=== PATIENT | female | born 1990 | race Caucasian/White ===

== ENCOUNTER → 2017-11-12 11:32 | Outpatient (CLI) | payer OTHER, SELFPAY ==
[2017-11-12 12:51] LABS: hCG Titer Quant., Serum 52 mIU/mL (<9 non-preg)
== END ==
PROVIDERS: Visit Provider Obstetrics & Gynecology
DX: O46.90 Antepartum hemorrhage, unspecified, unspecified trimester (principal); Z3A.00 Weeks of gestation of pregnancy not specified
CPT/HCPCS: 84702

== ENCOUNTER → 2017-11-14 07:33 | Outpatient (CLI) | payer OTHER, SELFPAY ==
[2017-11-14 08:31] LABS: hCG Titer Quant., Serum 139 mIU/mL (<9 non-preg)
== END ==
PROVIDERS: Visit Provider Obstetrics & Gynecology
DX: O46.90 Antepartum hemorrhage, unspecified, unspecified trimester (principal); Z3A.00 Weeks of gestation of pregnancy not specified
CPT/HCPCS: 36415; 84702

== ENCOUNTER → 2017-12-09 18:58 | Outpatient (CLI) | payer OTHER, SELFPAY ==
[2017-12-09 21:35] LABS: Chlamydia Trachomatis by PCR Negative (Negative); Neisserai gonorrhoeae by PCR Negative (Negative); Probe Check PASS; Sample Adequacy Control PASS; Specimen Processing Control PASS
[2017-12-13 09:33] LABS: HPV Reflexed? NOT INDICATED
== END ==
PROVIDERS: Visit Provider Obstetrics & Gynecology
DX: Z12.4 Encounter for screening for malignant neoplasm of cervix (principal); Z34.01 Encounter for supervision of normal first pregnancy, first trimester
CPT/HCPCS: 87086; 87491; 87591; 88175; G0145

== ENCOUNTER → 2017-12-10 07:28 | Outpatient (CLI) | payer OTHER, SELFPAY ==
[2017-12-10 07:56] LABS: Absolute Lymphocyte Count 1.88 X10^3/ul (0.83-4.51); Absolute Neutrophil Count 3.8 X10^3/uL (2.0-7.7); Basophil# 0.01 X10^3/uL; Basophil% 0.2 % (0-1); Eosinophil# 0.03 X10^3/uL; Eosinophils% 0.5 % (0-5); Hemoglobin 12.4 g/dl (12.0-15.0); Lymphocyte # 1.88 X10^3/ul (4.0); Lymphocyte % 30.5 % (19-41); Mean Corp Hgb Conc 32.6 g/gl (32-36); Mean Corpuscular Hgb 31.1 pg (27.0-32.0); Mean Corpuscular Volume 95.2 fL (81-99); Mean Platelet Vol. 9.7 fl (6.2-12.0); Monocyte# 0.46 X10^3/uL; Monocyte% 7.5 % (0-10); Neutrophil # 3.77 X10^3/uL (2.7-7.7); Neutrophil % 61.1 % (47-70); Platelet Count 183 K/mm3 (150-450); RBC Distribution Width CV 12.8 % (11.6-14.6); RBC Distribution Width SD 44.2 fl (35.1-43.9); Red Blood Count 3.99 M/mm3 (4.2-5.4); White Blood Count 6.2 K/mm3 (4.4-11.0)
[2017-12-10 07:58] LABS: POSITIVE COUNT NO; POSITIVE DIFFERENTIAL NO; POSITIVE MORPHOLOGY NO
[2017-12-10 09:48] LABS: HIV - WCH Non-Reactive (Nonreactive); Rubella IgG 41.6 IU/mL
[2017-12-11 12:49] LABS: HEPATITIS B SURFACE AG Negative (Negative)
[2017-12-12 03:47] LABS: Rapid Plasmin Reagin (RPR) NONREACTIVE (NONREACTIVE)
== END ==
PROVIDERS: Visit Provider Obstetrics & Gynecology
DX: Z34.01 Encounter for supervision of normal first pregnancy, first trimester (principal)
CPT/HCPCS: 36415; 85025; 86592; 86703; 86762; 86850; 86900; 87340

== ENCOUNTER → 2018-02-26 07:40 | Outpatient (CLI) | payer OTHER, SELFPAY | PROVIDERS: Visit Provider Obstetrics & Gynecology | DX: Z34.90 Encounter for supervision of normal pregnancy, unspecified, unspecified trimester (principal) | CPT/HCPCS: 76805 ==

== ENCOUNTER → 2018-04-28 16:30 | Outpatient (CLI) | payer OTHER, SELFPAY ==
[2018-04-28 17:16] LABS: Absolute Lymphocyte Count 1.56 X10^3/ul (0.83-4.51); Absolute Neutrophil Count 6.4 X10^3/uL (2.0-7.7); Basophil# 0.01 X10^3/uL; Basophil% 0.1 % (0-1); Eosinophil# 0.04 X10^3/uL; Eosinophils% 0.5 % (0-5); Hematocrit 37.8 % (37-47); Hemoglobin 12.2 g/dl (12.0-15.0); Lymphocyte # 1.56 X10^3/ul (4.0); Lymphocyte % 18.1 % (19-41); Mean Corp Hgb Conc 32.3 g/gl (32-36); Mean Corpuscular Hgb 31.7 pg (27.0-32.0); Mean Corpuscular Volume 98.2 fL (81-99); Mean Platelet Vol. 9.5 fl (6.2-12.0); Monocyte# 0.57 X10^3/uL; Monocyte% 6.6 % (0-10); Neutrophil # 6.41 X10^3/uL (2.7-7.7); Neutrophil % 74.4 % (47-70); Platelet Count 175 K/mm3 (150-450); RBC Distribution Width SD 46.3 fl (35.1-43.9); Red Blood Count 3.85 M/mm3 (4.2-5.4); White Blood Count 8.6 K/mm3 (4.4-11.0)
[2018-04-28 17:20] LABS: POSITIVE COUNT NO; POSITIVE DIFFERENTIAL NO; POSITIVE MORPHOLOGY NO
[2018-04-28 17:34] LABS: Glucose Challenge Gest 1H 50g 82 mg/dL (70-140)
== END ==
PROVIDERS: Family Provider Internal Medicine; PCP Internal Medicine; Referring Provider Obstetrics & Gynecology; Visit Provider Obstetrics & Gynecology
DX: Z34.90 Encounter for supervision of normal pregnancy, unspecified, unspecified trimester (principal)
CPT/HCPCS: 36415; 82950; 85025

== ENCOUNTER 2018-05-20 09:00 | Outpatient (CLI) | payer OTHER, SELFPAY ==
[2018-05-13 08:08] VITALS: BMI 27.3
[2018-05-20 09:18] VITALS: BMI 27.2
[2018-05-20 09:31] LABS: Mucous, Urine 0 SEEN /hpf (<or=2+); Red Blood Cells-Urine 0 SEEN /hpf (0-5)
[2018-05-20 09:41] LABS: Color, Urine Yellow (Yellow); Glucose, Dipstick Normal (Normal); Ketone-Dipstick Negative (Negative); Leukocyte Esterase-Dipstick 500 /ul (Negative); Nitrite-Dipstick Negative (Negative); Occult Blood-Urine Negative /ul (Negative); Protein-Dipstick Negative (Negative); Urine Bilirubin Dipstick Negative (Negative); Urine Clarity Sl. Cloudy (Clear); Urine Urobilinogen Normal (Normal)
[2018-05-20 09:42] LABS: Bacteria 1+ /hpf (None Seen); Squamous Epithelial Cells - UA 0-5 SEEN /hpf (5-10); White Blood Cells 25-50 SEEN /hpf (0-5)
[2018-05-20 10:21] LABS: Fetal Fibronectin Negative
--- NOTE | 2018-05-22 02:24 | OB.TRI.NOTE ---
- Problem List (1) Threatened labor Status: Acute (2) Supervision of normal Status: Acute Qualifiers: Comment: PRR TONI 07/21/18 gender surprise Christian History of Present Illness Date of Service: 05/20/18 Was patient seen by the physician?: No Reason For Visit: PRE TERM LABOR History of Present Illness: co contractions and lower crmaping Allergies No Known Allergies Allergy (Verified 05/20/18 09:19) Laboratory Studies: Laboratory Tests 05/20/18 05/20/18 Range/Units 09:45 09:25 Urine Color Yellow (Yellow) Urine Clarity Sl. Cloudy (Clear) Urine pH 6.0 (5.0 - 8.0) Ur Specific [place] 1.020 (1.002-1.030) Urine Protein Negative (Negative) mg/dl Urine Glucose (UA) Normal (Normal) mg/dl Urine Ketones Negative (Negative) mg/dl Urine Occult Blood Negative (Negative) /ul Urine Nitrite Negative (Negative) Urine Bilirubin Negative (Negative) mg/dL Urine Urobilinogen Normal (Normal) mg/dl Ur Leukocyte Esterase 500 H (Negative) /ul Urine RBC 0 SEEN (0-5) /hpf Urine WBC 25-50 SEEN (0-5) /hpf Ur Squamous Epith Cells 0-5 SEEN (5-10) /hpf Urine Bacteria 1+ (None Seen) /hpf Urine Mucus 0 SEEN (<or=2+) /hpf Fibronectin Negative NST - FHR Rate Baby A Baseline: 140 Variability:: Moderate Accelerations:: 15 x 15 Decelerations:: None NST Reactive:: Yes, Appropriate for gestational age FHR Category:: Category I Uterine Activity:: no regular Impression/Plan threatened PTL cervix closed neg ffn urine culture sent dc home
--- OUTSIDE RECORDS SUMMARY | 2018-07-15 14:59 | XMS RPT_ITS ---
:1990 Author Organization OHIP Support Name Relationship Address Phone AKRCHILD Unavailable [address] + [place] [address] ELOINA THORNTON Unavailable [address] + [place] [address] AKRCHILD Unavailable [address] + [place] [address] ELOINA THORNTON Unavailable [address] + [place] [address] AKRCHILD Unavailable [address] + [place] [address] ELOINA THORNTON Unavailable [address] + [place] [address] AKRCHILD Unavailable [address] + [place] [address] ELOINA THORNTON Unavailable [address] + [place] [address] AKRCHILD Unavailable [address] + [place] [address] ELOINA THORNTON Unavailable [address] + [place] [address] AKRCHILD Unavailable [address] + [place] [address] ELOINA THORNTON Unavailable [address] + [place] [address] AKRCHILD Unavailable [address] + [place] [address] ELOINA THORNTON Unavailable [address] + [place] [address] AKRCHILD Unavailable [address] + [place] [address] SHIRA, ELOINA Unavailable [address] + [place] [address] AKRCHILD Unavailable [address] + [place] [address] MARLENE THORNTONON Unavailable [address] + [place] [address] AKRCHILD Unavailable [address] + [place] [address] MARLENE THORNTONON Unavailable [address] + [place] [address] AKRCHILD Unavailable [address] + [place] [address] ELOINA THORNTON Unavailable [address] + [place] [address] AKRCHILD Unavailable [address] + [place] [address] ELOINA THORNTON Unavailable [address] + [place] [address] AKRCHILD Unavailable [address] + [place] [address] ELOINA THORNTON Unavailable [address] + [place] [address] AKRCHILD Unavailable [address] + [place] [address] ELOINA THORNTON Unavailable [address] + [place] [address] AKRCHILD Unavailable [address] + [place] [address] SHIRA, ELOINA Unavailable [address] + [place] [address] AKRCHILD Unavailable [address] + [place] [address] SHIRAMARLENEON Unavailable [address] + [place] [address] AKRCHILD Unavailable [address] + [place] [address] SHIRAMARLENEON Unavailable [address] + [place] [address] AKRCHILD Unavailable [address] + [place] [address] ELOINA THORNTON Unavailable [address] + [place] [address] Care Team Providers Name Role Phone ANGEL GANDHI Attending Unavailable Marcanthony, Emily Attending Unavailable Primay Care Physicia, No Primary Care Unavailable Marcanthony, Emily Attending Unavailable Marcanthony, Emily Referring Unavailable Primay Care Physicia, No Primary Care Unavailable Marcanthony, Emily Attending Unavailable Primay Care Physicia, No Referring Unavailable Primay Care Physicia, No Primary Care Unavailable Marcanthony, Emily Attending Unavailable Primay Care Physicia, No Primary Care Unavailable Marcanthony, Emily Referring Unavailable Marcanthony, Emily Attending Unavailable Marcanthony, Emily Referring Unavailable Primay Care Physicia, No Primary Care Unavailable Marcanthony, Emily Attending Unavailable Primay Care Physicia, No Referring Unavailable Primay Care Physicia, No Primary Care Unavailable [place] Attending Unavailable Primay Care Physicia, No Referring Unavailable Primay Care Physicia, No Primary Care Unavailable Marcanthony, Emily Attending Unavailable Primay Care Physicia, No Referring Unavailable Primay Care Physicia, No Primary Care Unavailable Primay Care Physicia, No Referring Unavailable Primay Care Physicia, No Primary Care Unavailable Wilbert, Claudette Attending Unavailable Marcanthony, Emily Attending Unavailable Primay Care Physicia, No Primary Care Unavailable Marcanthony, Emily Attending Unavailable Primay Care Physicia, No Referring Unavailable Primay Care Physicia, No Primary Care Unavailable Marcanthony, Emily Attending Unavailable Primay Care Physicia, No Referring Unavailable Marcanthony, Emily Attending Unavailable Primay Care Physicia, No Referring Unavailable Marcanthony, Emily Attending Unavailable Marcanthony, Emily Referring Unavailable [place], Angel Primary Care Unavailable Marcanthony, Emily Attending Unavailable Primay Care Physicia, No Referring Unavailable Marcanthony, Emily Attending Unavailable Marcanthony, Emily Referring Unavailable [place], Angel Primary Care Unavailable Marcanthony, Emily Attending Unavailable Marcanthony, Emily Referring Unavailable [place], Angel Primary Care Unavailable Marcanthony, Emily Consulting Unavailable Marcanthony, Emily Attending Unavailable [place], Angel Referring Unavailable PROBLEMS PROBLEMS DATE TYPE CONDITION / CODE ATTENDING STATUS SOURCE 04/28/2018 Unknown Z34.90 - Encounter Marcanthony, Active [place] for supervision of [facility] normal , Hospital unspecified, Repository unspecified trimester / Z34.90(ICD-10) 04/28/2018 Unknown Z34.02 - Encounter Marcanthony, Active [place] for supervision of [facility] normal first Hospital , second Repository trimester / Z34.02(ICD-10) 04/28/2018 Unknown Z23 - Encounter Marcanthony, Active [place] for immunization / [facility] Z23(ICD-10) Hospital Repository 04/28/2018 Unknown Z3A.28 - 28 weeks Marcanthony, Active [place] gestation of [facility] / Hospital Z3A.28(ICD-10) Repository 03/02/2018 Unknown Z3A.19 - 19 weeks Marcanthony, Active [place] gestation of [facility] / Hospital Z3A.19(ICD-10) Repository 01/06/2018 Unknown Z34.01 - Encounter [place] gu[place] Active [place] for supervision of [facility] normal first Hospital , first Repository trimester / Z34.01(ICD-10) 01/06/2018 Unknown Z3A.12 - 12 weeks WilbertClaudette guerrero Active [place] gestation of [facility] / Hospital Z3A.12(ICD-10) Repository PROCEDURES PROCEDURES No Procedure Records FoundRESULTS RESULTS DEPUTY PROSECUTING ATTORNEY OFFICE VISIT Observed: 05/26/2018 Status: F Source: [place] REPORT 10:39 AM [facility] REPOSITORY [facility] [address] [place] [address] OFFICE VISIT Date of Service: 05/26/18 MR#: [id number] Acct: [id number] Name: SHIRABRIANDA CUEVAS Rep #: [id number] : 1990 Provider: Emily Gore MD Age/Sex: 27/F Location: [facility] Status: Signed Intake Vital Signs05/26/18 Height 5 ft 7 in 05/26/18 Weight: 175 lb 8 oz 05/26/18 Body Mass Index (BMI) 27.4 05/26/18 Blood Pressure 120/64 05/26/18 Body Mass Index (BMI) 27.2 Intake Visit Reasons: OB Chief Complaint: est ob Laundromat Manager Required: No Is patient in pain?: No Allergies No Known Allergies Allergy (Verified 05/26/18 10:26) Medications vitamin,calcium,nimruity-xrmt-splmn acid tablet 1 tab PO QDAY 12/09/17 [History Confirmed 05/26/18] Last Menstral Period: 10/14/17 Zika: Zika virus screening: Negative : No PFSH PFSH Family History Grandfather Heart disease Myocardial infarction Social History Smoking Status: Never smoker alcohol intake: never substance use type: does not use caffeine: Yes what type of physical activity do you participate in: walking seatbelt use: always do you feel safe at home: Yes additional social history: Patient works for [employer] at [employer] Pregancy History 1 Elective abortions Hx Para Spontaneous abortions HPI OB : Details: BRIANDA THORNTON is a 27 year old who presents for routine OB visit. OB Visit TONI Calculator Estimated Delivery Date 07/21/18 Based on LMP (certain) 10/14/17 Current WG 32w 0d Number 1 Expected Delivery Route/Plan Specific Issue/Plans flu vaccine: given tdap vaccine: given rhogam: na LARC form signed: lalit labor support person: Eloina pain management: epidural cut cord/dad catch: maybe : yes PP control planned: iud probably special requests: Initial Weight: 150 lb Date Weight BP Urine PrFHR FuHt Pres MoCTX DilationFetal StVisit NoProviderComments E ot v te GA G Effac lucose ed Visit Notes Visit Date: 05/26/18 no vb lof good fm n oregular ctx Emily Gore MD on 05/26/18 Visit Date: 05/13/18 no vb lof good fm n oregular ctx Emily Gore MD on 05/13/18 Visit Date: 04/28/18 no vb lof good fm no rgular ctx Emily Gore MD on 04/28/18 Visit Date: 03/30/18 no vb cramping lof anai lanatomy scan Emily Gore MD on 03/30/18 Visit Date: 03/02/18 no vb lof good fm no regular ctx Emily Gore MD on 03/02/18 Visit Date: 02/02/18 No VB, LOF. Nausea occasionally but manageable. Doing well MAXIMO CastellonC on 02/02/18 Visit Date: 01/14/18 no vb cramping doing well Emily Gore MD on 01/15/18 Visit Date: 01/06/18 Doing well. Occa nausea but manageable. No VB, LOF. DARA Castellon on 01/06/18 Visit Date: 12/18/17 co spotting Emily Gore MD on 12/19/17 ACOG First Trimester First Trimester: Desire for , Alcohol, Tobacco Cessation, Illicit/Recreational Drug/Substance Use, Intimate Partner Violence, Barriers to care, Unstable Housing, Communication Barriers, Environmental/Work Hazards, Anticipated Course of Care, Toxoplasmosis Precations, Use of Any medications, Sexual activity, Exercise, Dental Care, Sauna/Hot tub use, Seat Belt use, Childbirth classes/Hospital facilities, , Travel, Indications for US and Screening for Aneuploidy Second Trimester Second Trimester: Signs and Symptoms of Labor, Selecting a care provider, Reproductive Life Planning, Care Planning, Tobacco Cessation, Depression/Anxiety and Intimate Partner Violence Diagnostics Diagnostics Labs Hct 37.8 % (37-47) 04/28/18 Hgb 12.2 g/dl (12.0-15.0) 04/28/18 Obstetrics Ultrasound 02/26/18 Glucose 1 Hr 50 gm 82 mg/dL (70-140) 04/28/18 Details: HIV: Urine Culture: Sequential Screen: NIPT Screen: Results [id number] Office Urine Glucose Negative Last Edit by Kathy Fuentes on 05/26/18 10:29 Office Urine Protein Negative Last Edit by Kathy Fuentes on 05/26/18 10:29 Assessment AND Plan Problems 1. 32 weeks gestation of Z3A.32 genetic and carrier screening declined. ntd screening declned. normal anatomy scan. 2. Encounter for supervision of normal first in third trimester Z34.03 PRR TONI 07/21/18 gender surprise Eloina Plan movement and labor precautions reviewed. ACOG trimester education reviewed and updated. see problem list details for updated plan management information and see below for orders placed at this visit. [place] appropriate handout given. Orders Orders: Coding Level of Care Code OB Routine Diagnoses 32 weeks gestation of Z3A.32 Weeks of gestation: 32 weeks Encounter for supervision of normal first in third trimester Z34.03 Normal : normal first Trimester: third trimester 05/26/18 1039 <Electronically signed by Emily Gore MD> Date Emily Gore MD Cosigner Signature: Date (if applicable) CC: FIBRONECTIN Collected: 05/20/2018 Status: F Source: [place] 9:45 AM [facility] REPOSITORY TYPE CODE TESTS RESULT OUT OF RANGE REFERENCE UNITS LAB L205.0100 Normal fFN Negative Performed By: #### L205.0000 #### [facility] [address] [place], [address] URINALYSIS, COMPLETE Collected: 05/20/2018 Status: F Source: [place] 9:25 AM [facility] REPOSITORY Order Comment: How was Urine Obtained? TELETYPE TECHNICIAN TO SPECIFY TYPE CODE TESTS RESULT OUT OF RANGE REFERENCE UNITS LAB L400.3000 Yellow COLOR Normal Yellow LAB L400.3050 Clear Normal CLARITY Sl. Cloudy LAB L400.3200 Normal mg/dl Normal GLUCOSE, UR Normal LAB L400.3300 Negative mg/dL Normal BILIRUBIN URINE Negative LAB L400.3400 Negative mg/dl Normal KETONE UR Negative LAB L400.3465 1.002-1.030 Normal SP.GR. DIPSTX 1.020 LAB L400.3550 5.0 - 8.0 pH UR Normal 6.0 LAB L400.3600 Negative mg/dl PROT Normal DIPSTX Negative LAB L400.3700 Normal mg/dl Normal UROBILI Normal LAB L400.3750 Negative Normal NITRITE UR Negative LAB L400.3780 Negative /ul Normal OCCULT BLOOD-UR Negative LAB L400.3800 Negative /ul High LEUK ESTERASE 500 LAB L400.4050 0-5 /hpf WBC Normal 25-50 SEEN LAB L400.4100 0-5 /hpf 0 Normal RBC-UA SEEN LAB L400.4150 5-10 /hpf SQUAM Normal EPI 0-5 SEEN LAB L400.4300 None Seen /hpf 1+ Normal BACTERIA LAB L400.4350 <or=2+ /hpf 0 Normal MUCUS, URINE SEEN Performed By: #### L400.0001 #### [facility] [address] [place], [address] Observed: 05/20/2018 Status: F Source: [place] CULTURE, URINE 9:25 AM [facility] REPOSITORY Urine Culture ORGANISM 1: Mixed Gram Positive Organisms Swoope Count 1000-10,000 MIX CULTURE Mixed contaminants. Submit a new specimen if indicated. Performed By: #### M100.0650 #### [facility] [address] [place], [address] DEPUTY PROSECUTING ATTORNEY OFFICE VISIT Observed: 05/13/2018 Status: F Source: [place] REPORT 8:52 AM [facility] REPOSITORY [facility] [address] [place] [address] OFFICE VISIT Date of Service: 05/13/18 MR#: [id number] Acct: [id number] Name: BRIANDA THORNTON Rep #: [id number] : 1990 Provider: Emily Gore MD Age/Sex: 27/F Location: [facility] Status: Signed Intake Vital Signs05/13/18 Height 5 ft 7 in 05/13/18 Weight: 174 lb 4 oz 05/13/18 Body Mass Index (BMI) 27.3 05/13/18 Blood Pressure 100/62 Intake Visit Reasons: est ob 30w Chief Complaint: est ob Laundromat Manager Required: No Is patient in pain?: No Allergies No Known Allergies Allergy (Verified 05/13/18 08:08) Medications vitamin,calcium,ljcooxrp-zdwp-bqxzf acid tablet 1 tab PO QDAY 12/09/17 [History Confirmed 05/13/18] Last Menstral Period: 10/14/17 Zika: Zika virus screening: Negative : No PFSH PFSH Family History Grandfather Heart disease Myocardial infarction Social History Smoking Status: Never smoker alcohol intake: never substance use type: does not use caffeine: Yes what type of physical activity do you participate in: walking seatbelt use: always do you feel safe at home: Yes additional social history: Patient works for [employer] at [employer] Jessica Lopes Pregancy History 1 Elective abortions Hx Para Spontaneous abortions HPI est ob 30w: Details: BRIANDA THORNTON is a 27 year old who presents for routine OB visit. OB Visit TONI Calculator Estimated Delivery Date 07/21/18 Based on LMP (certain) 10/14/17 Current WG 30w 1d Number 1 Expected Delivery Route/Plan Specific Issue/Plans flu vaccine: given tdap vaccine: given rhogam: na LARC form signed: [] labor support person: Eloina pain management: epidural cut cord/dad catch: maybe : yes PP control planned: [] special requests: [] Initial Weight: 150 lb Date Weight BP Urine PrFHR FuHt Pres MoCTX DilationFetal StVisit NoProviderComments E ot v te GA G Effac lucose ed Visit Notes Visit Date: 05/13/18 no vb lof good fm n oregular ctx Emily Gore MD on 05/13/18 Visit Date: 04/28/18 no vb lof good fm no rgular ctx Emily Gore MD on 04/28/18 Visit Date: 03/30/18 no vb cramping lof anai lanatomy scan Emily Gore MD on 03/30/18 Visit Date: 03/02/18 no vb lof good fm no regular ctx Emily Gore MD on 03/02/18 Visit Date: 02/02/18 No VB, LOF. Nausea occasionally but manageable. Doing well MAXIMO CastellonC on 02/02/18 Visit Date: 01/14/18 no vb cramping doing well Emily Gore MD on 01/15/18 Visit Date: 01/06/18 Doing well. Occa nausea but manageable. No VB, LOF. MAXIMO CastellonC on 01/06/18 Visit Date: 12/18/17 co spotting Emily Gore MD on 12/19/17 ACOG First Trimester First Trimester: Desire for , Alcohol, Tobacco Cessation, Illicit/Recreational Drug/Substance Use, Intimate Partner Violence, Barriers to care, Unstable Housing, Communication Barriers, Environmental/Work Hazards, Anticipated Course of Care, Toxoplasmosis Precations, Use of Any medications, Sexual activity, Exercise, Dental Care, Sauna/Hot tub use, Seat Belt use, Childbirth classes/Hospital facilities, , Travel, Indications for US and Screening for Aneuploidy Second Trimester Second Trimester: Signs and Symptoms of Labor, Selecting a care provider, Reproductive Life Planning, Care Planning, Tobacco Cessation, Depression/Anxiety and Intimate Partner Violence Diagnostics Diagnostics Labs Blood Type A POSITIVE 12/10/17 Antibody Screen NEGATIVE 12/10/17 Hct 37.8 % (37-47) 04/28/18 Hgb 12.2 g/dl (12.0-15.0) 04/28/18 Obstetrics Ultrasound 02/26/18 Rubella IgG Antibody 41.6 IU/mL 12/10/17 RPR NONREACTIVE (NONREACTIVE) 12/10/17 Hep Bs Antigen Negative (Negative) 12/10/17 Chlam trachomat DNA PCR Negative (Negative) 12/09/17 N.gonorrhoeae DNA (PCR) Negative (Negative) 12/09/17 Glucose 1 Hr 50 gm 82 mg/dL (70-140) 04/28/18 Details: HIV: Urine Culture: Sequential Screen: NIPT Screen: Results [id number] Office Urine Glucose Negative Last Edit by Kathy Fuentes on 05/13/18 08:11 Office Urine Protein Negative Last Edit by Kathy Fuentes on 05/13/18 08:11 Assessment AND Plan Problems 1. Encounter for supervision of normal first in third trimester Z34.03 PRR TONI 07/21/18 gender surprise Eloina 2. 30 weeks gestation of Z3A.30 genetic and carrier screening declined. ntd screening declned. normal anatomy scan. Plan movement and labor precautions reviewed. ACOG trimester education reviewed and updated. see problem list details for updated plan management information and see below for orders placed at this visit. [place] appropriate handout given. Orders Orders: Coding Level of Care Code OB Routine Diagnoses Encounter for supervision of normal first in third trimester Z34.03 Normal : normal first Trimester: third trimester 30 weeks gestation of Z3A.30 Weeks of gestation: 30 weeks 05/13/18 0852 <Electronically signed by Emily Gore MD> Date Emily Gore MD [facility] Signature: Date (if applicable) CC: DEPUTY PROSECUTING ATTORNEY OFFICE VISIT Observed: 04/28/2018 Status: F Source: [place] REPORT 5:04 PM [facility] [place] [address] [place] [place] [address] OFFICE VISIT Date of Service: 04/28/18 MR#: [id number] Acct: [id number] Name: SHIRABRIANDA CUEVAS Rep #: [id number] : 1990 Provider: Emily Gore MD Age/Sex: 27/F Location: [facility] Status: Signed with Addenda ADDENDUM by Allison Mora on 04/28/18 at 1704 OFFICE PROCEDURES Office Procedure Documentation entered by Allison Mora 04/28/18 17:04: Immunizations Boostrix Tdap Performing Provider: Emily Gore MD Administered by: Allison Mora on 04/28/18 17:02 Dose Route Admin Location Lot Number Expiration Date [facility] Property Master 0.5 mL IM Left Deltoid [id number] 05/16/19 [id number] [employer] VIS Given Date VIS Publication Date 04/28/18 08/16/14 Eligibility Eligibility Date 04/28/18 1704 <Electronically signed by Allison Mora > Date Allison Mora cc: * Signed Intake Vital Signs04/28/18 Height 5 ft 7 in 04/28/18 Weight: 169 lb 6 oz 04/28/18 Body Mass Index (BMI) 26.5 04/28/18 Blood Pressure 122/64 H Intake Visit Reasons: 28 weeks Laundromat Manager Required: No Is patient in pain?: No Allergies No Known Allergies Allergy (Verified 04/28/18 15:56) Medications vitamin,calcium,mcylbzif-gxld-lslgs acid tablet 1 tab PO QDAY 12/09/17 [History Confirmed 04/28/18] Last Menstral Period: 10/14/17 Zika: Zika virus screening: Negative : No PFSH PFSH Family History Grandfather Heart disease Myocardial infarction Social History Smoking Status: Never smoker alcohol intake: never substance use type: does not use caffeine: Yes what type of physical activity do you participate in: walking seatbelt use: always do you feel safe at home: Yes additional social history: Patient works for [employer] at [employer] Pregancy History 1 Elective abortions Hx Para Spontaneous abortions HPI 28 weeks: Details: BRIANDA THORNTON is a 27 year old who presents for routine OB visit. OB Visit TONI Calculator Estimated Delivery Date 07/21/18 Based on LMP (certain) 10/14/17 Current WG 28w 0d Number 1 Expected Delivery Route/Plan Specific Issue/Plans flu vaccine: given tdap vaccine: given rhogam: na LARC form signed: [] labor support person: Eloina pain management: epidural cut cord/dad catch: maybe : yes PP control planned: [] special requests: [] Initial Weight: 150 lb Date Weight BP Urine PFHR FuHt Pres MCTX DilatioFetal SVisit NProvideComment rot ov n t ote r s EGA Ef Gluco faced se 12/18/1145 lb 112/62 [id number] co spot 8 (-4 lb) e ting 9w 2d Negati ve Visit Notes Visit Date: 04/28/18 no vb lof good fm no rgular ctx Emily Gore MD on 04/28/18 Visit Date: 03/30/18 no vb cramping lof anai lanatomy scan Emily oGre MD on 03/30/18 Visit Date: 03/02/18 no vb lof good fm no regular ctx Emily Gore MD on 03/02/18 Visit Date: 02/02/18 No VB, LOF. Nausea occasionally but manageable. Doing well MAXIMO CastellonC on 02/02/18 Visit Date: 01/14/18 no vb cramping doing well Emily Gore MD on 01/15/18 Visit Date: 01/06/18 Doing well. Occa nausea but manageable. No VB, LOF. DARA Castellon on 01/06/18 Visit Date: 12/18/17 co spotting Emily Gore MD on 12/19/17 ACOG First Trimester First Trimester: Desire for , Alcohol, Tobacco Cessation, Illicit/Recreational Drug/Substance Use, Intimate Partner Violence, Barriers to care, Unstable Housing, Communication Barriers, Environmental/Work Hazards, Anticipated Course of Care, Toxoplasmosis Precations, Use of Any medications, Sexual activity, Exercise, Dental Care, Sauna/Hot tub use, Seat Belt use, Childbirth classes/Hospital facilities, , Travel, Indications for US and Screening for Aneuploidy Second Trimester Second Trimester: Signs and Symptoms of Labor, Selecting a care provider, Reproductive Life Planning, Care Planning, Tobacco Cessation, Depression/Anxiety and Intimate Partner Violence Diagnostics Diagnostics Labs Blood Type A POSITIVE 12/10/17 Antibody Screen NEGATIVE 12/10/17 Hct 38.0 % (37-47) 12/10/17 Hgb 12.4 g/dl (12.0-15.0) 12/10/17 Obstetrics Ultrasound 02/26/18 Rubella IgG Antibody 41.6 IU/mL 12/10/17 RPR NONREACTIVE (NONREACTIVE) 12/10/17 Hep Bs Antigen Negative (Negative) 12/10/17 Chlam trachomat DNA PCR Negative (Negative) 12/09/17 N.gonorrhoeae DNA (PCR) Negative (Negative) 12/09/17 Details: HIV: Urine Culture: Sequential Screen: NIPT Screen: Results [id number] Office Urine Glucose Negative Last Edit by Allison Mora on 04/28/18 16:09 Office Urine Protein Negative Last Edit by Allison Mora on 04/28/18 16:09 Assessment AND Plan Problems 1. Encounter for supervision of normal first in second trimester Z34.02 PRR TONI 07/21/18 gender surprise Eloina 2. 28 weeks gestation of Z3A.28 genetic and carrier screening declined. ntd screening declned. normal anatomy scan. Plan movement and labor precautions reviewed. ACOG trimester education reviewed and updated. see problem list details for updated plan management information and see below for orders placed at this visit. [place] appropriate handout given. Orders Orders: Medications New: Coding Level of Care Code OB Routine Diagnoses Encounter for supervision of normal first in second trimester Z34.02 Normal : normal first Trimester: second trimester 28 weeks gestation of Z3A.28 Weeks of gestation: 28 weeks 04/28/18 1622 <Electronically signed by Emily Gore MD> Date Emily Gore MD Cosigner Signature: Date (if applicable) CC: CBC W/DIFF, AUTOMATED Collected: 04/28/2018 Status: F Source: [place] 4:53 PM [facility] REPOSITORY TYPE CODE TESTS RESULT OUT OF RANGE REFERENCE UNITS LAB L100.1000 4.4-11.0 K/mm3 Normal WBC 8.6 LAB L100.1200 4.2-5.4 M/mm3 Low RBC 3.85 LAB L100.1300 12.0-15.0 g/dl Normal HGB 12.2 LAB L100.1400 37-47 % Normal HCT 37.8 LAB L100.1500 81-99 fL Normal MCV 98.2 LAB L100.1600 27.0-32.0 pg Normal MCH 31.7 LAB L100.1700 32-36 g/gl Normal MCHC 32.3 LAB L100.1810 11.6-14.6 % Normal RDW CV 13.0 LAB L100.1820 35.1-43.9 fl High RDW SD 46.3 LAB L100.1900 150-450 K/mm3 Normal PLT 175 LAB L100.2000 6.2-12.0 fl Normal MPV 9.5 LAB L100.2100 47-70 % High NEUT% 74.4 LAB L100.2200 19-41 % Low LY% 18.1 LAB L100.2300 0-10 % Normal MONO% 6.6 LAB L100.2400 0-5 % Normal EO% 0.5 LAB L100.2500 0-1 % Normal BASO% 0.1 LAB L100.2550 0.0-0.9 % Normal IM GRAN % 0.300 Result Comment: IG% - Immature Granulocytes (promyelocytes, myelocytes and metamyelocytes) > 1% indicates that a LEFT SHIFT is Present. LAB L100.2620 2.0-7.7 X10 3/uL Normal Absolute Neut 6.4 LAB L100.2720 0.83-4.51 X10 3/ul Normal Absolute Lymph 1.56 Performed By: #### L100.0100 #### [facility] [address] [place], [address] GLUCOSE CHALLENGE GEST Collected: 04/28/2018 Status: F Source: MIRIAM 1H 50G 4:53 PM [facility]POS[facility] Order Comment: Comments: Draw at 5:01pm Comments: Draw at 5:01pm TYPE CODE TESTS RESULT OUT OF RANGE REFERENCE UNITS LAB L501.0250 70-140 mg/dL Normal GLU GEST 82 50g 1H Performed By: #### L501.0250 #### [facility] [address] [place], [address] DEPUTY PROSECUTING ATTORNEY OFFICE VISIT Observed: 03/30/2018 Status: F Source: BOVEY REPORT 9:18 AM [facility] REPOSITORY [facility] [address] [place] [address] OFFICE VISIT Date of Service: 03/30/18 MR#: [id number] Acct: [id number] Name: BRIANDA THORNTON Rep #: [id number] : 1990 Provider: Emily Gore MD Age/Sex: 27/F Location: [facility] Status: Signed Intake Vital Signs03/30/18 Height 5 ft 7 in 03/30/18 Weight: 162 lb 03/30/18 Body Mass Index (BMI) 25.3 03/30/18 Blood Pressure 92/52 L Intake Visit Reasons: 24 weeks Chief Complaint: est ob [employer] Manager Required: No Is patient in pain?: No Allergies No Known Allergies Allergy (Verified 03/30/18 08:36) Medications vitamin,calcium,llvfjtxs-pfzm-wggad acid tablet 1 tab PO QDAY 12/09/17 [History Confirmed 03/30/18] Last Menstral Period: 10/14/17 Zika: Zika virus screening: Negative : No PFSH PFSH Family History Grandfather Heart disease Myocardial infarction Social History Smoking Status: Never smoker alcohol intake: never substance use type: does not use caffeine: Yes what type of physical activity do you participate in: walking seatbelt use: always do you feel safe at home: Yes additional social history: Patient works for [employer] at [employer] Pregancy History 1 Elective abortions Hx Para Spontaneous abortions HPI 24 weeks: Details: BRIANDA THORNTON is a 27 year old who presents for routine OB visit. OB Visit TONI Calculator Estimated Delivery Date 07/21/18 Based on LMP (certain) 10/14/17 Current WG 23w 6d Number 1 Expected Delivery Route/Plan Specific Issue/Plans flu vaccine: given tdap vaccine: [] rhogam: [] LARC form signed: [] labor support person: Eloina pain management: epidural cut cord/dad catch: maybe : yes PP control planned: [] special requests: [] Initial Weight: 150 lb Date Weight BP Urine PrFHR FuHt Pres MoCTX DilationFetal StVisit NoProviderComments E ot v te GA G Effac lucose ed Visit Notes Visit Date: 03/30/18 no vb cramping lof anai lanatomy scan Emily Gore MD on 03/30/18 Visit Date: 03/02/18 no vb lof good fm no regular ctx Emily Gore MD on 03/02/18 Visit Date: 02/02/18 No VB, LOF. Nausea occasionally but manageable. Doing well Claudette Atkins NP-Audra on 02/02/18 Visit Date: 01/14/18 no vb cramping doing well Emily Gore MD on 01/15/18 Visit Date: 01/06/18 Doing well. Occa nausea but manageable. No VB, LOF. DARA Castellon on 01/06/18 Visit Date: 12/18/17 co spotting Emily Gore MD on 12/19/17 ACOG First Trimester First Trimester: Desire for , Alcohol, Tobacco Cessation, Illicit/Recreational Drug/Substance Use, Intimate Partner Violence, Barriers to care, Unstable Housing, Communication Barriers, Environmental/Work Hazards, Anticipated Course of Care, Toxoplasmosis Precations, Use of Any medications, Sexual activity, Exercise, Dental Care, Sauna/Hot tub use, Seat Belt use, Childbirth classes/Hospital facilities, , Travel, Indications for US and Screening for Aneuploidy Second Trimester Second Trimester: Signs and Symptoms of Labor, Selecting a care provider, Reproductive Life Planning, Care Planning, Tobacco Cessation, Depression/Anxiety and Intimate Partner Violence Diagnostics Diagnostics Labs Blood Type A POSITIVE 12/10/17 Antibody Screen NEGATIVE 12/10/17 Hct 38.0 % (37-47) 12/10/17 Hgb 12.4 g/dl (12.0-15.0) 12/10/17 Pap Smear Negative 11/14/15 Obstetrics Ultrasound 02/26/18 Rubella IgG Antibody 41.6 IU/mL 12/10/17 RPR NONREACTIVE (NONREACTIVE) 12/10/17 Hep Bs Antigen Negative (Negative) 12/10/17 Chlam trachomat DNA PCR Negative (Negative) 12/09/17 N.gonorrhoeae DNA (PCR) Negative (Negative) 12/09/17 Details: HIV: Urine Culture: Sequential Screen: NIPT Screen: Results [id number] Office Urine Glucose Negative Last Edit by Kathy Fuentes on 03/30/18 08:38 Office Urine Protein Negative Last Edit by Kathy Fuentes on 03/30/18 08:38 Assessment AND Plan Problems 1. Encounter for supervision of normal first in second trimester Z34.02 PRR TONI 07/21/18 gender surprise Eloina 2. 19 weeks gestation of Z3A.19 genetic and carrier screening declined. ntd screening declned. normal anatomy scan. Plan ACOG trimester education reviewed and updated. see problem list details for updated plan management information and see below for orders placed at this visit. [place] appropriate handout given. Orders Orders: Coding Level of Care Code OB Routine Diagnoses Encounter for supervision of normal first in second trimester Z34.02 Normal : normal first Trimester: second trimester 19 weeks gestation of Z3A.19 Weeks of gestation: 19 weeks 03/30/18917 <Electronically signed by Emily Gore MD> Date [facility] Signature: Date (if applicable) CC: DEPUTY PROSECUTING ATTORNEY OFFICE VISIT Observed: 03/02/2018 Status: F Source: MIRIAM REPORT 9:21 AM [facility] [address] [place] [address] OFFICE VISIT Date of Service: 03/02/18 MR#: [id number] Acct: [id number] Name: BRIANDA THORNTON Rep #: [id number] : 1990 Provider: Emily Gore MD Age/Sex: 27/F Location: [facility] Status: Signed Intake Vital Signs03/02/18 Height 5 ft 7 in 03/02/18 Weight: 153 lb 03/02/18 Body Mass Index (BMI) 23.9 03/02/18 Blood Pressure 118/52 Intake Visit Reasons: 20 weeks Chief Complaint: est ob [employer]und[employer] Manager Required: No Is patient in pain?: No Allergies No Known Allergies Allergy (Verified 03/02/18 08:41) Medications vitamin,calcium,uefectzu-sdfx-ixbaz acid tablet 1 tab PO QDAY 12/09/17 [History Confirmed 03/02/18] Last Menstral Period: 10/14/17 Zika: Zika virus screening: Negative : No PFSH PFSH Family History Grandfather Heart disease Myocardial infarction Social History Smoking Status: Never smoker alcohol intake: never substance use type: does not use caffeine: Yes what type of physical activity do you participate in: walking seatbelt use: always do you feel safe at home: Yes additional social history: Patient works for [employer] at [employer] Pregancy History 1 Elective abortions Hx Para Spontaneous abortions HPI 20 weeks: Details: BRIANDA THORNTON is a 27 year old who presents for routine OB visit. OB Visit TONI Calculator Estimated Delivery Date 07/21/18 Based on LMP (certain) 10/14/17 Current WG 19w 6d Number 1 Expected Delivery Route/Plan Specific Issue/Plans flu vaccine: [] tdap vaccine: [] rhogam: [] LARC form signed: [] labor support person: Eloina pain management: epidural cut cord/dad catch: maybe : yes PP control planned: [] special requests: [] Initial Weight: 150 lb Date Weight BP Urine PrFHR FuHt Pres MoCTX DilationFetal StVisit NoProviderComments E ot v te GA G Effac lucose ed Visit Notes Visit Date: 03/02/18 no vb lof good fm no regular ctx Emily Gore MD on 03/02/18 Visit Date: 02/02/18 No VB, LOF. Nausea occasionally but manageable. Doing well MAXIMO CastellonC on 02/02/18 Visit Date: 01/14/18 no vb cramping doing well Emily Gore MD on 01/15/18 Visit Date: 01/06/18 Doing well. Occa nausea but manageable. No VB, LOF. DARA Castellon on 01/06/18 Visit Date: 12/18/17 co spotting Emily Gore MD on 12/19/17 ACOG First Trimester First Trimester: Desire for , Alcohol, Tobacco Cessation, Illicit/Recreational Drug/Substance Use, Intimate Partner Violence, Barriers to care, Unstable Housing, Communication Barriers, Environmental/Work Hazards, Anticipated Course of Care, Toxoplasmosis Precations, Use of Any medications, Sexual activity, Exercise, Dental Care, Sauna/Hot tub use, Seat Belt use, Childbirth classes/Hospital facilities, , Travel, Indications for US and Screening for Aneuploidy Second Trimester Second Trimester: Signs and Symptoms of Labor, Selecting a care provider, Reproductive Life Planning, Care Planning, Tobacco Cessation, Depression/Anxiety and Intimate Partner Violence Diagnostics Diagnostics Labs Blood Type A POSITIVE 12/10/17 Antibody Screen NEGATIVE 12/10/17 Hct 38.0 % (37-47) 12/10/17 Hgb 12.4 g/dl (12.0-15.0) 12/10/17 Pap Smear Negative 11/14/15 Obstetrics Ultrasound 02/26/18 Rubella IgG Antibody 41.6 IU/mL 12/10/17 RPR NONREACTIVE (NONREACTIVE) 12/10/17 Hep Bs Antigen Negative (Negative) 12/10/17 Chlam trachomat DNA PCR Negative (Negative) 12/09/17 N.gonorrhoeae DNA (PCR) Negative (Negative) 12/09/17 Details: HIV: Urine Culture: Sequential Screen: NIPT Screen: Results [id number] Office Urine Glucose Negative Last Edit by Kathy Fuentes on 03/02/18 08:43 Office Urine Protein Negative Last Edit by Kathy Fuentes on 03/02/18 08:43 Assessment AND Plan Problems 1. 19 weeks gestation of Z3A.19 genetic and carrier screening declined. ntd screening declned. normal anatomy scan. 2. Encounter for supervision of normal first in second trimester Z34.02 PRR TONI 07/21/18 gender surprise Eloina Plan ACOG trimester education reviewed and updated. see problem list details for updated plan management information and see below for orders placed at this visit. [place] appropriate handout given. Orders Orders: Coding Level of Care Code OB Routine Diagnoses 19 weeks gestation of Z3A.19 Weeks of gestation: 19 weeks Encounter for supervision of normal first in second trimester Z34.02 Normal : normal first Trimester: second trimester 03/02/18920 <Electronically signed by Emily Gore MD> Date Emily Gore MD Cosigner Signature: Date (if applicable) CC: OB ANATOMY SCAN Observed: 02/26/2018 Status: F Source: MIRIAM 7:47 AM [facility] REPOSITORY [place] [address] [place] [address] OB Anatomy Scan MR#: [id number] Acct: [id number] Name: BRIANDA THORNTON Rep #: [id number] : 1990 F 27 From: Antoine Cherry MD PCP: Care Physician, No Primary Status: REG CLI Study: OB Anatomy Scan Date of Exam: 02/26/18 Exam# [id number] Ordering Dr: Emily Gore MD STUDY: SECOND AND THIRD TRIMESTER OBSTETRICAL ULTRASOUND REASON FOR EXAM: Female, 27 years old. Routine survey. LMP: October 14, 2017. TECHNIQUE: Transabdominal PRIOR ULTRASOUND: None. FINDINGS: There is a single intrauterine fetus. The fetus is in a cephalic presentation. There is demonstrated cardiac activity with a heart rate of 147 bpm. There is a normal amniotic fluid volume. The largest amniotic fluid pocket measures 2.1 cm x 10.3 cm. The amniotic fluid index (KATERINA) is within normal limits. The placenta is anterior in location and is not low lying. There are Grade 0 placental changes. The cervix measures 3.8 cm in length. The bilateral adnexal regions are normal. BIOMETRY: BPD: 4.37 cm: 19 weeks, 2 days HC: 16.4 cm: 19 weeks, 1 days AC: 12.42 cm: 18 weeks, 1 days FL: 2.99 sign: 19 weeks, 2 days CI: 77% FL/BPD: 68% FL/HC: FL/AC: 24% HC/AC: 1.32 age by current US: 19 weeks, 0 days. TONI by current US: July 23, 2018. Estimated weight: 252 grams, +/- 37 grams, 16 %. Age by LMP: 19 weeks, 2 days. TONI by LMP: July 21, 2018. ANATOMY: Gender: Indeterminant Cranium: Normal lateral ventricles. Normal choroid plexus. Normal cerebellum. Normal cisterna magna. Normal face, nose and lips. Chest: Normal 4-chamber heart. Abdomen/Pelvis: Normal diaphragm. Normal stomach. Normal abdominal wall. Normal cord insertion. Normal 3 vessel cord. Normal kidneys. Normal bladder. Spine: Normal cervical spine. Normal thoracic spine. Normal lumbar spine. Normal sacrum. Extremities: Normal bilateral upper extremities. Normal bilateral lower extremities. US/OB Anatomy Scan IMPRESSION: Single live intrauterine gestation with a mean gestational age of 19 weeks. Electronically Signed: Antoine Cherry MD at 15:29 EDT Tel [phone], Service support , CC: No Primary Care Physician; Emily Gore MD Angiography Nurse: Signed DEPUTY PROSECUTING ATTORNEY OFFICE VISIT Observed: 02/02/2018 Status: F Source: BOVEY REPORT 4:26 PM [facility] [address] [place] [address] OFFICE VISIT Date of Service: 02/02/18 MR#: [id number] Acct: [id number] Name: BRIANDA THORNTON Rep #: [id number] : 1990 Provider: JIM Atkins Age/Sex: 27/F Location: [facility] Status: Signed Intake Vital Signs02/02/18 Height 5 ft 7 in 02/02/18 Weight: 149 lb 02/02/18 Body Mass Index (BMI) 23.3 02/02/18 Blood Pressure 104/52 Intake Visit Reasons: 16 weeks Chief Complaint: est ob [employer]und[employer] Manager Required: No Is patient in pain?: No Allergies No Known Allergies Allergy (Verified 02/02/18 14:19) Medications vitamin,calcium,yexdejxy-eirh-oyrcw acid tablet 1 tab PO QDAY 12/09/17 [History Confirmed 02/02/18] Last Menstral Period: 10/14/17 Zika: Zika virus screening: Negative : No [facility] Family History Grandfather Heart disease Myocardial infarction Social History Smoking Status: Never smoker alcohol intake: never substance use type: does not use caffeine: Yes what type of physical activity do you participate in: walking seatbelt use: always do you feel safe at home: Yes additional social history: Patient works for [employer] at [employer] Pregancy History 1 Elective abortions Hx Para Spontaneous abortions HPI 16 weeks: Details: BRIANDA THORNTON is a 27 year old who presents for routine OB visit. OB Visit TONI Calculator Estimated Delivery Date 07/21/18 Based on LMP (certain) 10/14/17 Current WG 15w 6d Number 1 Expected Delivery Route/Plan Specific Issue/Plans flu vaccine: [] tdap vaccine: [] rhogam: [] LARC form signed: [] labor support person: Eloina pain management: epidural cut cord/dad catch: maybe : yes PP control planned: [] special requests: [] Initial Weight: 150 lb Date Weight BP Urine PrFHR FuHt Pres MoCTX DilationFetal StVisit NoProviderComments E ot v te GA G Effac lucose ed Visit Notes Visit Date: 02/02/18 No VB, LOF. Nausea occasionally but manageable. Doing well MAXIMO CastellonC on 02/02/18 Visit Date: 01/14/18 no vb cramping doing well Emily Gore MD on 01/15/18 Visit Date: 01/06/18 Doing well. Occa nausea but manageable. No VB, LOF. DARA Castellon on 01/06/18 Visit Date: 12/18/17 co spotting Emily Gore MD on 12/19/17 ACOG First Trimester First Trimester: Desire for , Alcohol, Tobacco Cessation, Illicit/Recreational Drug/Substance Use, Intimate Partner Violence, Barriers to care, Unstable Housing, Communication Barriers, Environmental/Work Hazards, Anticipated Course of Care, Toxoplasmosis Precations, Use of Any medications, Sexual activity, Exercise, Dental Care, Sauna/Hot tub use, Seat Belt use, Childbirth classes/Hospital facilities, , Travel, Indications for US and Screening for Aneuploidy Diagnostics Diagnostics Labs Blood Type A POSITIVE 12/10/17 Antibody Screen NEGATIVE 12/10/17 Hct 38.0 % (37-47) 12/10/17 Hgb 12.4 g/dl (12.0-15.0) 12/10/17 Pap Smear Negative 11/14/15 Rubella IgG Antibody 41.6 IU/mL 12/10/17 RPR NONREACTIVE (NONREACTIVE) 12/10/17 Hep Bs Antigen Negative (Negative) 12/10/17 Chlam trachomat DNA PCR Negative (Negative) 12/09/17 N.gonorrhoeae DNA (PCR) Negative (Negative) 12/09/17 Details: HIV: Urine Culture: Sequential Screen: NIPT Screen: Results [id number] Office Urine Glucose Negative Last Edit by Kathy Fuentes on 02/02/18 14:23 Office Urine Protein Negative Last Edit by Kathy Fuentes on 02/02/18 14:23 Assessment AND Plan Problems 1. Encounter for supervision of normal first in first trimester Z34.01 PRR TONI 07/21/18 Eloina 2. 15 weeks gestation of Z3A.15 Plan - DARA Castellon Orders placed: anatomy US Reviewed of labor precautions, movement/kick counts ACOG trimester education reviewed and updated See problem list details for updated plan of care Gestational age appropriate handout given RTO: 4 weeks Orders Orders: Coding Level of Care Code OB Routine Diagnoses Encounter for supervision of normal first in first trimester Z34.01 Normal : normal first Trimester: first trimester 15 weeks gestation of Z3A.15 Weeks of gestation: 15 weeks 02/02/18 1626 <Electronically signed by Emily Gore MD> Date Emily Gore MD 02/02/18 1515<Electronically signed by Claudette DIAMOND> Cosigner Signature: Date (if applicable) Claudette Atkins [employer] M[employer]ER[employer] CC: DEPUTY PROSECUTING ATTORNEY OFFICE VISIT Observed: 01/15/2018 Status: F Source: MIRIAM REPORT 6:00 AM [facility] [address] [place] [address] OFFICE VISIT Date of Service: 01/14/18 MR#: [id number] Acct: [id number] Name: BRIANDA THORNTON Rep #: [id number] : 1990 Provider: Emily Gore MD Age/Sex: 27/F Location: [facility] Status: Signed Intake Vital Signs01/14/18 Height 5 ft 7 in 01/14/18 Weight: 147 lb 8 oz 01/14/18 Body Mass Index (BMI) 23.1 01/14/18 Blood Pressure 127/75 Intake Visit Reasons: NT scan here in office 13 weeks Chief Complaint: est ob [employer]und[employer]at Manager Required: No Allergies No Known Allergies Allergy (Verified 01/14/18 08:00) Medications vitamin,calcium,ihdibldu-ijxz-pyzui acid tablet 1 tab PO QDAY 12/09/17 [History Confirmed 01/14/18] Last Menstral Period: 10/14/17 Zika: Zika virus screening: Negative : No PFSH PFSH Family History Grandfather Heart disease Myocardial infarction Social History Smoking Status: Never smoker alcohol intake: never substance use type: does not use caffeine: Yes what type of physical activity do you participate in: walking seatbelt use: always do you feel safe at home: Yes additional social history: Patient works for [employer] at [employer] Pregancy History 1 Elective abortions Hx Para Spontaneous abortions HPI NT scan here in office 13 weeks: Details: BRIANDA THORNTON is a 27 year old who presents for routine OB visit. OB Visit TONI Calculator Estimated Delivery Date 07/21/18 Based on LMP (certain) 10/14/17 Current WG 13w 2d Number 1 Expected Delivery Route/Plan Specific Issue/Plans flu vaccine: [] minichart given: [] tdap vaccine: [] rhogam: [] LARC form signed: [] labor support person: [] pain management: [] cut cord/dad catch: [] : [] PP control planned: [] special requests: [] Initial Weight: 150 lb Date Weight BP Urine PFHR FuHt Pres MCTX DilatioFetal SVisit NProvideComment rot ov n t ote r s EGA Ef Gluco faced se 12/18/1145 lb 112/62 [id number] co spot 8 (-4 lb) e ting 9w 2d Negati ve Visit Notes Visit Date: 01/14/18 no vb cramping doing well Emily Gore MD on 01/15/18 Visit Date: 01/06/18 Doing well. Occa nausea but manageable. No VB, LOF. Claudette Atkins NP-C on 01/06/18 Visit Date: 12/18/17 co spotting Emily Gore MD on 12/19/17 ACOG First Trimester First Trimester: Desire for , Alcohol, Tobacco Cessation, Illicit/Recreational Drug/Substance Use, Intimate Partner Violence, Barriers to care, Unstable Housing, Communication Barriers, Environmental/Work Hazards, Anticipated Course of Care, Toxoplasmosis Precations, Use of Any medications, Sexual activity, Exercise, Dental Care, Sauna/Hot tub use, Seat Belt use, Childbirth classes/Hospital facilities, , Travel, Indications for US and Screening for Aneuploidy Diagnostics Diagnostics Labs Blood Type A POSITIVE 12/10/17 Antibody Screen NEGATIVE 12/10/17 Hct 38.0 % (37-47) 12/10/17 Hgb 12.4 g/dl (12.0-15.0) 12/10/17 Rubella IgG Antibody 41.6 IU/mL 12/10/17 RPR NONREACTIVE (NONREACTIVE) 12/10/17 Hep Bs Antigen Negative (Negative) 12/10/17 Chlam trachomat DNA PCR Negative (Negative) 12/09/17 N.gonorrhoeae DNA (PCR) Negative (Negative) 12/09/17 Details: HIV: Urine Culture: Sequential Screen: NIPT Screen: Results [id number] Office Urine Glucose Negative Last Edit by Kathy Fuentes on 01/14/18 08:02 Office Urine Protein Negative Last Edit by Kathy Fuentes on 01/14/18 08:02 Assessment AND Plan Problems 1. Encounter for supervision of normal first in first trimester Z34.01 PRR TONI 07/21/18 [place] Plan Orders placed: none ACOG trimester education reviewed and updated. see problem list details for updated plan management information. [place] appropriate handout given. Orders Orders: Coding Level of Care Code OB Routine Diagnoses Encounter for supervision of normal first in first trimester Z34.01 Normal : normal first Trimester: first trimester 01/15/18 0600 <Electronically signed by Emily Gore MD> Date Emily Gore MD Cosigner Signature: Date (if applicable) CC: DEPUTY PROSECUTING ATTORNEY OFFICE VISIT Observed: 01/06/2018 Status: F Source: MIRIAM REPORT 9:25 AM [facility] [address] [place] [address] OFFICE VISIT Date of Service: 01/06/18 MR#: [id number] Acct: [id number] Name: BRIANDA THORNTON Rep #: [id number] : 1990 Provider: JIM Atkins Age/Sex: 27/F Location: [facility] Status: Signed Intake Vital Signs01/06/18 Height 5 ft 7 in 01/06/18 Weight: 149 lb 4 oz 01/06/18 Body Mass Index (BMI) 23.3 01/06/18 Blood Pressure 124/60 Intake Visit Reasons: 12 weeks Laundromat Manager Required: No Is patient in pain?: No Allergies No Known Allergies Allergy (Verified 01/06/18 09:08) Medications vitamin,calcium,alsierwz-smeu-gasbc acid tablet 1 tab PO QDAY 12/09/17 [History Confirmed 01/06/18] Last Menstral Period: 10/14/17 Zika: Zika virus screening: Negative : No PFSH PFSH Family History Grandfather Heart disease Myocardial infarction Social History Smoking Status: Never smoker alcohol intake: never substance use type: does not use caffeine: Yes what type of physical activity do you participate in: walking seatbelt use: always do you feel safe at home: Yes additional social history: Patient works for [employer] at [employer] Pregancy History 1 Elective abortions Hx Para Spontaneous abortions HPI 12 weeks: Details: BRIANDA THORNTON is a 27 year old who presents for routine OB visit. OB Visit TONI Calculator Estimated Delivery Date 07/21/18 Based on LMP (certain) 10/14/17 Current WG 12w 0d Number 1 Expected Delivery Route/Plan Specific Issue/Plans flu vaccine: [] minichart given: [] tdap vaccine: [] rhogam: [] LARC form signed: [] labor support person: [] pain management: [] cut cord/dad catch: [] : [] PP control planned: [] special requests: [] Initial Weight: 150 lb Date Weight BP Urine PrFHR FuHt Pres MoCTX DilationFetal StVisit NoProviderComments E ot v te GA G Effac lucose ed Visit Notes Visit Date: 01/06/18 Doing well. Occa nausea but manageable. No VB, LOF. Claudette Atkins NP-C on 01/06/18 Visit Date: 12/18/17 co spotting Emily Gore MD on 12/19/17 ACOG First Trimester First Trimester: Desire for , Alcohol, Tobacco Cessation, Illicit/Recreational Drug/Substance Use, Intimate Partner Violence, Barriers to care, Unstable Housing, Communication Barriers, Environmental/Work Hazards, Anticipated Course of Care, Toxoplasmosis Precations, Use of Any medications, Sexual activity, Exercise, Dental Care, Sauna/Hot tub use, Seat Belt use, Childbirth classes/Hospital facilities, , Travel, Indications for US and Screening for Aneuploidy Diagnostics Diagnostics Labs Blood Type A POSITIVE 12/10/17 Antibody Screen NEGATIVE 12/10/17 Hct 38.0 % (37-47) 12/10/17 Hgb 12.4 g/dl (12.0-15.0) 12/10/17 Rubella IgG Antibody 41.6 IU/mL 12/10/17 RPR NONREACTIVE (NONREACTIVE) 12/10/17 Hep Bs Antigen Negative (Negative) 12/10/17 Chlam trachomat DNA PCR Negative (Negative) 12/09/17 N.gonorrhoeae DNA (PCR) Negative (Negative) 12/09/17 Details: HIV: Urine Culture: Sequential Screen: NIPT Screen: Results [id number] Office Urine Glucose Negative Last Edit by Allison Mora on 01/06/18 09:12 Office Urine Protein Negative Last Edit by Allison Mora on 01/06/18 09:12 Assessment AND Plan Problems 1. Encounter for supervision of normal first in first trimester Z34.01 TONI 07/21/18 [place] 2. testing Plans seq screen 3. 12 weeks gestation of Z3A.12 Plan Orders placed: plan sequential genetic scree Reviewed of labor precautions, movement/kick counts ACOG trimester education reviewed and updated See problem list details for updated plan of care Gestational age appropriate handout given RTO: 4 weeks Orders Orders: Coding Level of Care Code OB Routine Diagnoses Encounter for supervision of normal first in first trimester Z34.01 Normal : normal first Trimester: first trimester testing 12 weeks gestation of Z3A.12 01/06/18 0925 <Electronically signed by Claudette DIAMOND> Date Claudette DIAMOND Cosigner Signature: Date (if applicable) CC: DEPUTY PROSECUTING ATTORNEY OFFICE VISIT Observed: 12/19/2017 Status: F Source: MIRIAM REPORT 1:40 AM [facility] [place] [address] [place] [address] OFFICE VISIT Date of Service: 12/18/17 MR#: [id number] Acct: [id number] Name: BRIANDA THORNTON Rep #: [id number] : 1990 Provider: Emily Gore MD Age/Sex: 27/F Location: [facility] Status: Signed Intake Vital Signs12/18/17 Height 5 ft 7 in 12/18/17 Weight: 146 lb 12/18/17 Body Mass Index (BMI) 22.8 12/18/17 Blood Pressure 112/62 Intake Visit Reasons: 9 weeks discharge Accompanied by: Self Allergies No Known Allergies Allergy (Verified 12/18/17 11:47) Medications vitamin,calcium,glznuzzw-yctr-ngjjh acid tablet 1 tab PO QDAY 12/09/17 [History Confirmed 12/18/17] Last Menstral Period: 10/14/17 Zika: Zika virus screening: Negative : No PFSH PFSH Family History Grandfather Heart disease Myocardial infarction Social History Smoking Status: Never smoker alcohol intake: never substance use type: does not use caffeine: Yes what type of physical activity do you participate in: walking seatbelt use: always do you feel safe at home: Yes additional social history: Patient works for [employer] at [employer] Pregancy History 1 Elective abortions Hx Para Spontaneous abortions HPI 9 weeks discharge: Details: BRIANDA THORNTON is a 27 year old who presents for routine OB visit. OB Visit TONI Calculator Estimated Delivery Date 07/21/18 Based on LMP (certain) 10/14/17 Current WG 9w 3d Number 1 Expected Delivery Route/Plan Specific Issue/Plans flu vaccine: [] minichart given: [] tdap vaccine: [] rhogam: [] LARC form signed: [] labor support person: [] pain management: [] cut cord/dad catch: [] : [] PP control planned: [] special requests: [] Initial Weight: 150 lb Date Weight BP Urine PrFHR FuHt Pres MoCTX DilationFetal StVisit NoProviderComments E ot v te GA G Effac lucose ed Visit Notes Visit Date: 12/18/17 co spotting Emily Gore MD on 12/19/17 ACOG First Trimester First Trimester: Desire for , Alcohol, Tobacco Cessation, Illicit/Recreational Drug/Substance Use, Intimate Partner Violence, Barriers to care, Unstable Housing, Communication Barriers, Environmental/Work Hazards, Anticipated Course of Care, Toxoplasmosis Precations, Use of Any medications, Sexual activity, Exercise, Dental Care, Sauna/Hot tub use, Seat Belt use, Childbirth classes/Hospital facilities, , Travel, Indications for US and Screening for Aneuploidy Diagnostics Diagnostics Labs Blood Type A POSITIVE 12/10/17 Antibody Screen NEGATIVE 12/10/17 Hct 38.0 % (37-47) 12/10/17 Hgb 12.4 g/dl (12.0-15.0) 12/10/17 Rubella IgG Antibody 41.6 IU/mL 12/10/17 RPR NONREACTIVE (NONREACTIVE) 12/10/17 Hep Bs Antigen Negative (Negative) 12/10/17 Chlam trachomat DNA PCR Negative (Negative) 12/09/17 N.gonorrhoeae DNA (PCR) Negative (Negative) 12/09/17 Details: HIV: Urine Culture: Sequential Screen: NIPT Screen: Results [id number] Office Urine Glucose Negative Last Edit by Amberly Null on 12/18/17 11:51 Office Urine Protein Negative Last Edit by Amberly Null on 12/18/17 11:51 Assessment AND Plan Problems 1. Threatened O20.0 Plan reassuring FHT seen no cause of bleeding, closed cervix Orders Orders: Coding Level of Care Code OB Routine Diagnoses Threatened O20.0 12/19/17 0140 <Electronically signed by Emily Gore MD> Date Emily Gore MD Cosigner Signature: Date (if applicable) CC: CBC W/DIFF, AUTOMATED Collected: 12/10/2017 Status: F Source: MIRIAM 7:34 AM [facility] REPOSITORY TYPE CODE TESTS RESULT OUT OF RANGE REFERENCE UNITS LAB L100.1000 4.4-11.0 K/mm3 Normal WBC 6.2 LAB L100.1200 4.2-5.4 M/mm3 Low RBC 3.99 LAB L100.1300 12.0-15.0 g/dl Normal HGB 12.4 LAB L100.1400 37-47 % Normal HCT 38.0 LAB L100.1500 81-99 fL Normal MCV 95.2 LAB L100.1600 27.0-32.0 pg Normal MCH 31.1 LAB L100.1700 32-36 g/gl Normal MCHC 32.6 LAB L100.1810 11.6-14.6 % Normal RDW CV 12.8 LAB L100.1820 35.1-43.9 fl High RDW SD 44.2 LAB L100.1900 150-450 K/mm3 Normal PLT 183 LAB L100.2000 6.2-12.0 fl Normal MPV 9.7 LAB L100.2100 47-70 % Normal NEUT% 61.1 LAB L100.2200 19-41 % Normal LY% 30.5 LAB L100.2300 0-10 % Normal MONO% 7.5 LAB L100.2400 0-5 % Normal EO% 0.5 LAB L100.2500 0-1 % Normal BASO% 0.2 LAB L100.2550 0.0-0.9 % Normal IM GRAN % 0.200 Result Comment: IG% - Immature Granulocytes (promyelocytes, myelocytes and metamyelocytes) > 1% indicates that a LEFT SHIFT is Present. LAB L100.2620 2.0-7.7 X10 3/uL Normal Absolute Neut 3.8 LAB L100.2720 0.83-4.51 X10 3/ul Normal Absolute Lymph 1.88 Performed By: #### L100.0100, B101.7450 #### [facility] [address] [place], [address] TYPE AND SCREEN Collected: 12/10/2017 Status: F Source: BOVEY 7:34 AM [facility] REPOSITORY Order Comment: Reason for Type AND Screen/Red Cells: TYPE CODE TESTS RESULT OUT OF RANGE REFERENCE UNITS LAB B10.0800 A Normal BLOOD TYPE GEL POSITIVE LAB B100.4000 Normal Antibody NEGATIVE Screen Performed By: #### L100.0100, B101.7450 #### [facility] [address] [facility] [place], [address] RUBELLA IGG Collected: 12/10/2017 Status: F Source: MIRIAM 7:34 AM [facility] REPOSITORY TYPE CODE TESTS RESULT OUT OF RANGE REFERENCE UNITS LAB L509.4000 IU/mL Normal Rubella IgG 41.6 Result Comment: Antibody results Interpretation of Immune Status < 5 IU/ml Presumed Non-immune 5 - < 10 IU/ml Equivocal > or = 10 IU/ml Presumed Immune Performed By: #### L509.4000, L3890.6005 #### [facility] [place], [address] #### L3100.0390 #### [facility] (refer to report for specific site) refer to report for address and phone number HIV - [facility] Collected: 12/10/2017 Status: F Source: BOVEY 7:34 AM [facility] REPOSITORY TYPE CODE TESTS RESULT OUT OF RANGE REFERENCE UNITS LAB L3890.6005 Nonreactive Normal HIV - [facility] Non-Reactive Performed By: #### L509.4000, L3890.6005 #### [facility] [address] [place] [address]. [place], [address] #### L3100.0390 #### [facility] (refer to report for specific site) refer to report for address and phone number HEPATITIS B SURFACE Collected: 12/10/2017 Status: F Source: BOVEY AG 7:34 AM [facility] REPOSITORY TYPE CODE TESTS RESULT OUT OF RANGE REFERENCE UNITS LAB L3100.0400 Negative Normal HB Negative SURF AG Result Comment: Performed at: - [facility] [address] [id number] Water Main Installer Helper: Gabriel Travis PhD, Phone: [phone] Performed By: #### L509.4000, L3890.6005 #### [facility] [address] [place] [address]. [place], [address] #### L3100.0390 #### [facility] (refer to report for specific site) refer to report for address and phone number RAPID PLASMIN REAGIN Collected: 12/10/2017 Status: F Source: MIRIAM (RPR) 7:34 AM [facility] REPOSITORY TYPE CODE TESTS RESULT OUT OF REFERENCE UNITS RANGE LAB L700.5000 NONREACTIVE NONREACTIVE Normal RPR Performed By: #### L700.5000 #### [facility] [address] [place], [address] CT/NG [facility] BY PCR Collected: 12/09/2017 Status: F Source: MIRIAM 6:59 PM [facility] REPOSITORY Order Comment: CYTOLOGY INFORMATION: - CLINICAL INFORMATION: - DATE LMP/MENOPAUSE: LMP/ NOT GIVEN - COLLECTION VIAL: Thin Prep Vial - ASSOCIATE PROJECT MANAGER SOURCE: CERVICAL - COLLECTION TECHNIQUE: BRUSH ONLY/ CERVIX BROOM ONLY TYPE CODE TESTS RESULT OUT OF RANGE REFERENCE UNITS LAB L8200.2100 Negative Normal Chlam Negative Trac PCR LAB L8200.2200 Negative Normal NG by Negative PCR Performed By: #### L8200.2000 #### [facility] [address] [place], [address] #### L7400.0353 #### [facility] (refer to report for specific site) refer to report for address and phone number PAP I-G W/RFX Collected: 12/09/2017 Status: F Source: MIRIAM HRHPV-APTIMA 6:59 PM [facility] REPOSITORY Order Comment: Specimen Comment: No. of containers..01 ThinPrep Vial TYPE CODE TESTS RESULT OUT OF RANGE REFERENCE UNITS LAB L7400.0800 . Normal DIAGN Comment Result Comment: NEGATIVE FOR INTRAEPITHELIAL LESION AND MALIGNANCY. LAB L7400.0900 . Normal ADEQ Comment Result Comment: Satisfactory for evaluation. Endocervical and/or squamous metaplastic cells (endocervical component) are present. LAB L7400.1400 . Normal PERFORM Comment Result Comment: Sherrill Wood, Moth Proofer (ASCP) LAB L7400.2575 . Normal TEST METHOD Comment Result Comment: This liquid based ThinPrep(R) pap test was screened with the use of an image guided system. LAB L7400.2600 . Normal . COMM LAB L7400.2700 . Normal PAPSMR Comment Result Comment: The Pap smear is a screening test designed to aid in the detection of premalignant and malignant conditions of the uterine cervix. It is not a diagnostic procedure and should not be used as the sole means of detecting cervical cancer. Both false-positive and false-negative reports do occur. LAB L7400.2800 . Normal HPV RFLX Comment Result Comment: The HPV DNA reflex criteria were not met with this specimen result therefore, no HPV testing was performed. Performed at: [facility] [id number] Water Main Installer Helper: Paris Woods MD, Phone: [phone] Performed By: #### L8200.2000 #### [facility] [address] [facility] [place], [place], [address] #### L7400.0353 #### [facility] (refer to report for specific site) refer to report for address and phone number Observed: 12/09/2017 Status: F Source: BOVEY CULTURE, URINE 6:59 PM [facility] Urine Culture Culture exhibits no growth. Performed By: #### M100.0650 #### [facility] [address] [facility]. [place], [place], [id number] DEPUTY PROSECUTING ATTORNEY OFFICE VISIT Observed: 12/09/2017 Status: F Source: BOVEY REPORT 10:50 AM [facility] REPOSITORY [facility] [address] [place] [address]. [address] [place] [address] OFFICE VISIT Date of Service: 12/09/17 MR#: [id number] Acct: [id number] Name: SHIRABRIANDA Eduardo Rep #: [id number] : 1990 Provider: Emily Gore MD Age/Sex: 27/F Location: [facility] Status: Signed Intake Vital Signs12/09/17 Height 5 ft 7 in 12/09/17 Weight: 150 lb 2 oz 12/09/17 Body Mass Index (BMI) 23.5 12/09/17 Blood Pressure 123/63 Intake Visit Reasons: NOB - LMP 10/14 Chief Complaint: NEW OB Laundromat Manager Required: No Is patient in pain?: No Allergies No Known Allergies Allergy (Unverified 12/09/17 09:54) Medications vitamin,calcium,ksthxfxk-ftmh-qksvv acid tablet 1 tab PO QDAY 12/09/17 [History Confirmed 12/09/17] Last Menstral Period: 10/14/17 Zika: Zika virus screening: Positive ([place], [place]) : No PFSH PFSH Family History Grandfather Heart disease Myocardial infarction Social History Smoking Status: Never smoker alcohol intake: never substance use type: does not use caffeine: Yes what type of physical activity do you participate in: walking seatbelt use: always do you feel safe at home: Yes additional social history: Patient works for [employer] at [employer] Pregancy History 1 Elective abortions Hx Para Spontaneous abortions HPI NOB - LMP 10/14: Details: BRIANDA THORNTON is a 27 year old who presents for New OB visit. OB Visit TONI Calculator Estimated Delivery Date 07/21/18 Based on LMP (certain) 10/14/17 Current WG 8w 0d Number 1 Expected Delivery Route/Plan Specific Issue/Plans flu vaccine: [] minichart given: [] tdap vaccine: [] rhogam: [] LARC form signed: [] labor support person: [] pain management: [] cut cord/dad catch: [] : [] PP control planned: [] special requests: [] Menstrual History Last Menstral Period: 10/14/17 Reported LMP: definite Normal amount/duration: Yes On hormonal BC at conception: No Antepartum Record Genetic Screening: Congenital Heart Defect: Other, Neural Tube Defect: Other, Hemoglobinopathy Or Carrier: Other, Cystic Fibrosis: Other, Chromosome Abnormality: Other, Nishant-Sachs: Other, Hemophilia: Other, Intellectual Disability/Autism: Other, Recurrent Loss/Stillbirth: Other, Other Structural Defect: Other, Other Genetic Disease: Other, Maternal Metabolic Disorder: Other Infection History: Live with someone with TB or Exposed to TB: No, Patient or Partner has history of Genital Herpes: No, Rash or Viral illness since last mentrual period: No, Prior GBS-Infected child: No, History of STD: No, HIV Infection: No, History of Hepatitis: No, Recent travel outside of [place]: No, Concern for Hep exposure: No, Varicella immune: Yes Medical History Medical History: Negative: Diabetes, Hypertension, Heart disease, Auto-immune disorder, Kidney disease/UTI, Neurologic/epilepsy, Psychiatric, Depression/ depression, Hepatitis/liver disease, Varicosities/phlebitis, Thyroid dysfunction, Trauma/domestic violence, History of blood transfusions, D (Rh) Sensitized, Pulmonary (e.g.,TB,Asthma), Seasonal allergies, Drug/latex allergies/reactions, Breast, Adjuster Arbitrator surgery, Operations/hospitalizations, Anesthetic complications, History of abnormal pap, Uterine anomaly/дмитрий, Infertility, Anti-retroviral treatment, Relevant family history, Other ACOG First Trimester First Trimester: Desire for , Alcohol, Tobacco Cessation, Illicit/Recreational Drug/Substance Use, Intimate Partner Violence, Barriers to care, Unstable Housing, Communication Barriers, Environmental/Work Hazards, Anticipated Course of Care, Nurtrition and weight gain, Toxoplasmosis Precations, Use of Any medications, Sexual activity, Exercise, Dental Care, Sauna/Hot tub use, Seat Belt use, Childbirth classes/Hospital facilities, , Travel, Indications for US and Screening for Aneuploidy ROS Const Denies fever(s), Reports system reviewed and no additional complaints, except as docu, Reports fatigue Eyes Reports system reviewed and no additional complaints, except as docu ENT Reports system reviewed and no additional complaints, except as docu Card Denies chest pain, Denies shortness of breath Resp Reports system reviewed and no additional complaints, except as docu, Denies shortness of breath, Denies cough GI Reports nausea, Denies abdominal pain Reports system reviewed and no additional complaints, except as docu Musc Reports system reviewed and no additional complaints, except as docu Skin/Breast Reports system reviewed and no additional complaints, except as docu Neuro Yes system reviewed and no additional complaints, except as docu Psych Reports system reviewed and no additional complaints, except as docu Endo Reports fatigue, Reports system reviewed and no additional complaints, except as docu Exam Const General: healthy appearing, comfortable, no acute distress Orientation: alert [facility] Head: normal to inspection, atraumatic, normocephalic Ears: external ears normal, hearing grossly normal bilaterally Nose: nares normal, external nose normal Mouth: oral mucosae normal Teeth and gingiva: dentition normal Eyes General: appearance normal, both eyes and all related structures Neck Neck: no lymphadenopathy, supple, normal visual inspection Thyroid: thyroid normal Resp Effort AND Inspection: normal respiratory effort GI Inspection: normal to inspection Palpation: soft, no hepatosplenomegaly General: bladder normal to palpation External Female Exam: normal external appearance, normal appearance of the urethra Urethra: normal appearance of the urethra Speculum Exam - Vagina: normal appearance of the vagina, normal vaginal discharge Speculum Exam - Cervix: normal appearance of the cervix Bimanual Exam- Vagina AND Uterus: bladder normal to palpation, normal bimanual exam, uterus non-tender, other Bimanual Exam- Adnexa, other: adnexae non-tender Skin General: no rashes or lesions noted Neuro Motor: muscle tone normal throughout, no movement abnormalities noted Extrem General: normal to inspection, full ROM Assessment AND Plan Problems 1. Encounter for supervision of normal first in first trimester Z34.01 TONI 07/21/18 [place] Plan Patient oriented to practice and discussed care expectations and screenings. OG book offered to patient. labs and 19-20 week anatomy ultrasound ordered. see problem list details for plan information. Genetic screening offered to patient and patient chose: discussed and considering Plan Detail Follow Up 4 Weeks (sm or ) Supplemental Info ACOG book given and patient encouraged to read about nutrition, exercise, weight gain, and food avoidance in . Coding Level of Care Code OB Routine Diagnoses Encounter for supervision of normal first in first trimester Z34.01 Normal : normal first Trimester: first trimester 12/09/17 1050 <Electronically signed by Emily Gore MD> Date Emily Gore MD Cosigner Signature: Date (if applicable) CC: PROGRESS Observed: 12/05/2017 Status: COMPLETED Source: JACKSON 9:25 AM [facility] REPOSITORY [facility] ID: [id number] Author: Angel Gandhi Service: (none) Author Type: Physician Type: Progress Notes Filed: 12/14/2017 11:16 PM Note Text: HISTORY Brianda Thornton is a 27 year old lady here to be formally established with me and for yearly exam. Had been a patient of Dr. Noel at [facility] pediatrics department. PAST MEDICAL HISTORY Diagnosis Date - NEGATIVE MEDICAL HISTORY 2011 normal color vision Current Outpatient Prescriptions: Cvyeftkj-Hn-Nfz-Fe-FA ( VITAMIN) tab Take 1 tablet by mouth. No current facility-administered medications for this visit. ALLERGIES No Known Allergies PAST SURGICAL HISTORY Procedure Laterality Date - NONE FAMILY HISTORY Problem Relation Age of Onset - Diabetes Paternal Grandfather - Celiac [Other] [OTHER] Mother - Heart Paternal Grandfather - Heart Maternal Grandfather Social History Marital status: Spouse name: Years of education: Number of children: Social History Main Topics Smoking status: Never Smoker Smokeless tobacco: Never Used Alcohol use: No Drug use: No Sexual activity: Yes Partners with: Male control/protection: IUD Comment: Juliette REVIEW OF SYSTEMS Aside from above, Constitutional, HEENT, CV, PULM, GI, , PSYCH, DERM, HEM/ONC, NEURO negative. PHYSICAL EXAMINATION: Blood pressure 112/58, pulse 76, resp. rate 16, weight 68 kg (150 lb). Estimated body mass index is 22.81 kg/m? as calculated from the following: Height as of 11/09/15: 172.7 cm (5' 8). Weight as of this encounter: 68 kg (150 lb). Last 5 Encounter BP Readings: Date: BP: 12/05/2017 112/58 11/09/2015 128/60 09/25/2015 118/66 09/13/2015 116/70 11/16/2014 136/68 Last 5 Encounter Wt Readings: Date: Wt: 12/05/2017 68 kg (150 lb) 11/09/2015 68 kg (150 lb) 09/25/2015 65.3 kg (144 lb) 09/13/2015 65.9 kg (145 lb 3.2 oz) 11/16/2014 68.7 kg (151 lb 6.4 oz) General appearance: well appearing, in no acute distress, well-hydrated, well nourished Skin: Skin color, texture, turgor normal. No significant rashes or lesions. Head: Normal Eyes: Anicteric sclera. Pupils are equally round and reactive to light. Extraocular movements are intact. Ears: External ears normal. Canals clear. TM's unremarkable. Nose/Sinuses: negative Oropharynx: Lips, mucosa, and tongue normal. Teeth and gums normal. Oropharynx normal. Neck: Neck supple, no adenopathy; thyroid symmetric, normal size, no bruits. Lungs: Lungs clear to auscultation Heart: negative. RRR without murmur, gallop, or rubs. No ectopy. Abdomen: Abdomen soft, non-tender. Bowel sounds normal. No masses, organomegaly Extremities: Extremities normal. No deformities, edema, or skin discoloration. Good capillary refill. Musculoskeletal: grossly normal Peripheral pulses: Normal Neuro: Gait normal. Reflexes normal and symmetric. Sensation grossly intact. No gross focal neurological deficits. ASSESSMENT AND PLAN See diagnoses and orders Encounter Diagnosis ICD-10-CM 1. Routine medical exam Z00.00 27 year old lady here to be formally established with me. History and medications reviewed. Epic updated as needed Above issues addressed with patient. Patient involved in shared decision making for management of her medical issues. Refills taken care of and meds adjusted as indicated after reviewed history, exam and labs. Health Maintenance reviewed. Updated record and/or ordered tests as recorded. Encouraged on efforts at healthy diet and regular exercise and adequate sleep. Followed with Claudette Atkins when was [facility]. Will follow up with ASSOCIATE PROJECT MANAGER per preference. Angel Gandhi MD CNOV Observed: 12/05/2017 Status: COMPLETED Source: JACKSON 9:00 AM [facility] REPOSITORY Office Visit (INTMWS) BRIANDA THORNTON ([id number]) 1990 F Date Time Provider Department 12/05/17 9:00 AM ANGEL GANDHI INTMWS During your visit today, we recorded the following information about you: Pulse Respiration Blood pressure Weight 76/minute 16/minute 112/58 68 kg Angel Gandhi MD 12/14/2017 11:16 PM Signed HISTORY Brianda Thornton is a 27 year old lady here to be formally established with me and for yearly exam. Had been a patient of Dr. Noel at [facility] pediatrics department. PAST MEDICAL HISTORY Diagnosis Date - NEGATIVE MEDICAL HISTORY 2011 normal color vision Current Outpatient Prescriptions: Sezhvgzw-Gn-Shn-Fe-FA ( VITAMIN) tab Take 1 tablet by mouth. No current facility-administered medications for this visit. ALLERGIES No Known Allergies PAST SURGICAL HISTORY Procedure Laterality Date - NONE FAMILY HISTORY Problem Relation Age of Onset - Diabetes Paternal Grandfather - Celiac [Other] [OTHER] Mother - Heart Paternal Grandfather - Heart Maternal Grandfather Social History Marital status: Spouse name: Years of education: Number of children: Social History Main Topics Smoking status: Never Smoker Smokeless tobacco: Never Used Alcohol use: No Drug use: No Sexual activity: Yes Partners with: Male control/protection: IUD Comment: Juliette REVIEW OF SYSTEMS Aside from above, Constitutional, HEENT, CV, PULM, GI, , PSYCH, DERM, HEM/ONC, NEURO negative. PHYSICAL EXAMINATION: Blood pressure 112/58, pulse 76, resp. rate 16, weight 68 kg (150 lb). Estimated body mass index is 22.81 kg/m? as calculated from the following: Height as of 11/09/15: 172.7 cm (5' 8). Weight as of this encounter: 68 kg (150 lb). Last 5 Encounter BP Readings: Date: BP: 12/05/2017 112/58 11/09/2015 128/60 09/25/2015 118/66 09/13/2015 116/70 11/16/2014 136/68 Last 5 Encounter Wt Readings: Date: Wt: 12/05/2017 68 kg (150 lb) 11/09/2015 68 kg (150 lb) 09/25/2015 65.3 kg (144 lb) 09/13/2015 65.9 kg (145 lb 3.2 oz) 11/16/2014 68.7 kg (151 lb 6.4 oz) General appearance: well appearing, in no acute distress, well-hydrated, well nourished Skin: Skin color, texture, turgor normal. No significant rashes or lesions. Head: Normal Eyes: Anicteric sclera. Pupils are equally round and reactive to light. Extraocular movements are intact. Ears: External ears normal. Canals clear. TM's unremarkable. Nose/Sinuses: negative Oropharynx: Lips, mucosa, and tongue normal. Teeth and gums normal. Oropharynx normal. Neck: Neck supple, no adenopathy; thyroid symmetric, normal size, no bruits. Lungs: Lungs clear to auscultation Heart: negative. RRR without murmur, gallop, or rubs. No ectopy. Abdomen: Abdomen soft, non-tender. Bowel sounds normal. No masses, organomegaly Extremities: Extremities normal. No deformities, edema, or skin discoloration. Good capillary refill. Musculoskeletal: grossly normal Peripheral pulses: Normal Neuro: Gait normal. Reflexes normal and symmetric. Sensation grossly intact. No gross focal neurological deficits. ASSESSMENT AND PLAN See diagnoses and orders Encounter Diagnosis ICD-10-CM 1. Routine medical exam Z00.00 27 year old lady here to be formally established with me. History and medications reviewed. Epic updated as needed Above issues addressed with patient. Patient involved in shared decision making for management of her medical issues. Refills taken care of and meds adjusted as indicated after reviewed history, exam and labs. Health Maintenance reviewed. Updated record and/or ordered tests as recorded. Encouraged on efforts at healthy diet and regular exercise and adequate sleep. Followed with Claudette Atkins when was here at [facility]. Will follow up with ASSOCIATE PROJECT MANAGER per preference. Angel Gandhi MD Referring Provider: SELF [200] Allergies As of Date: 12/05/2017 (No Known Allergies) Date Reviewed: 12/05/2017 Reviewed by: Kathleen Dawson LPN - Fully Assessed Reason for Visit: Establish Care [42] Primary Visit Diagnosis:Routine medical exam [Z00.00] Prescriptions as of 12/05/2017 Sig: VITAMIN,CALCIUM,MINE* Take 1 tablet by mouth. Problem List As Of Date 12/05/2017 Noted Resolved Dysmenorrhea [N94.6] INVALID FOR* Disposition: Return in about 1 year (around 12/05/2018) for Yearly exam and follow up (40 min). Follow-up and Disposition History Recorded Encounter Status:Closed by ANGEL GANDHI MD on 12/14/17 HCG TITER QUANT., Collected: 11/14/2017 Status: F Source: [place] 7:35 AM [facility] REPOSITORY TYPE CODE TESTS RESULT OUT OF RANGE REFERENCE UNITS LAB L700.8000 <9 non-preg mIU/mL High HCG 139 QUANT. Performed By: #### L700.8000 #### [facility] [address] [place], [address] HCG TITER QUANT., Collected: 11/12/2017 Status: F Source: [place] 11:36 AM [facility] REPOSITORY TYPE CODE TESTS RESULT OUT OF RANGE REFERENCE UNITS LAB L700.8000 <9 non-preg mIU/mL High HCG 52 QUANT. Performed By: #### L700.8000 #### [facility] [address] [place], [address] ALLERGIES ALLERGIES DATE TYPE / CODE NAME / CODE REACTION SEVERITY SOURCE 05/26/2018 Drug No Known Unknown [facility] Allergy/416 Allergies/C56730 Hospital 989409(SNOM 0388(RXNORM) Repository ED CT) Drug NO KNOWN [facility] [place] Class/64049 ALLERGIES [facility] 1003(SNOMED Repository CT) ENCOUNTERS ENCOUNTERS ADMIT/DISCHARGE ACCOUNT ADMITTING ENCOUNTER LOCATION SOURCE NUMBER CLASS 05/26/2018/05/26/20 [id number] Ambulatory BMSBuilding:[facility] [place] [address] [place] Repository 05/22/2018 [id number] Ambulatory BMSBuilding:B [place] MS.[facility] Repository 05/20/2018/05/20/20 [id number] Ambulatory [address] ing:WPOUTRoom Repository : WP018 05/13/2018/05/13/20 [id number] Ambulatory BMSBuilding:[facility] [place] [address] [place] Repository 04/28/2018 [id number] Ambulatory [facility] ing:LAB Repository 04/28/2018/04/28/20 [id number] Ambulatory BMSBuilding:B [place] [address] [place] Repository 03/30/2018/03/30/20 [id number] Ambulatory BMSBuilding:[facility] [place] [address] [place] Repository 03/02/2018/03/02/20 [id number] Ambulatory BMSBuilding:[facility] [place] [address] [facility] Repository 02/26/2018 [id number] Ambulatory [facility] ing:OPUS Repository 02/02/2018/02/03/20 [id number] Ambulatory BMSBuilding:[facility] [place] [address] [place] Repository 01/14/2018/01/15/20 [id number] Ambulatory BMSBuilding:[facility] [place] [address] [place] Repository 01/06/2018/01/07/20 [id number] Ambulatory BMSBuilding:[facility] [place] [address] [facility] Repository 12/18/2017/12/19/19 [id number] Ambulatory BMSBuilding:[facility] [place] [address] [facility] Repository 12/10/2017 [id number] Ambulatory [facility] ing:LAB Repository 12/09/2017 [id number] Ambulatory [facility] ing:LABSPEC Repository 12/09/2017/12/10/19 [id number] Ambulatory BMSBuilding:B [place] [address] [facility] Repository 12/05/2017/12/16/19 [id number] Ambulatory [address] Repository 11/14/2017 [id number] Ambulatory [facility] ing:LAB Repository 11/12/2017 [id number] Ambulatory [facility] ing:PAVLAB Repository PAYERS PAYERS ENCOUNTER GUARANTOR PAYER SUBSCRIBER SOURCE 05/26/2018 BRIANDA Clark Primary BRIANDA Clark [place] [id number] Insurance:MEDICAL BONTRAGERDOB: [facility] [place] Number: Repository [address]Xuw: [phone] [id number] [phone] Date:6870-93-37TS [address] [place] [address]OL: 05/26/2018 Secondary NOT GIVENUNK [place] Insurance:SELF PAY [facility] Number: Effective Repository Date:2018-05-26 05/22/2018 BRIANDA Clark Primary NOT GIVENUNK [place] [id number] Insurance:SELF PAY [place] Number: Effective Repository [id number]: 330) Date:2018-05-22 [phone] ([phone] 05/20/2018 BRIANDA S Primary BRIANDA S [place] [id number] Insurance:MEDICAL BONTRAGERDOB: [facility] 6532[place]97[place] Number: Repository [address]Zeu: 330 [id number] [phone] (HP) Date:6144-87-53DA [address] [address]AG: 05/20/2018 Secondary NOT GIVENUNK [place] Insurance:SELF PAY [facility] Number: Effective Repository Date:2018-05-20 05/13/2018 BRIANDA S Primary BRIANDA S [place] [id number] Insurance:MEDICAL BONTRAGERDOB: [facility] 0802-06-[place] Number: Repository [address]Ief: 330 [id number] [phone]) Date:1703-05-24ZZ [address] [address]SZ: 05/13/2018 Secondary NOT GIVENUNK [place] Insurance:SELF PAY [facility] Number: Effective Repository Date:2018-05-13 04/28/2018 BRIANDA S Primary BRIANDA S [place] [id number] Insurance:MEDICAL BONTRAGERDOB: [facility] 4771-76[place] Number: Repository [address]Wkg: ([phone] [id number] [phone] (HP) Date:6360-82-85PS [address] [address]QS: 04/28/2018 Secondary NOT GIVENUNK [place] Insurance:SELF PAY [facility] Number: Effective Repository Date:2018-04-28 04/28/2018 BRIANDA S Primary BRIANDA S [place] [id number] Insurance:MEDICAL BONTRAGERDOB: [facility] 4533-04-[place] Number: Repository [address]Sva: 330 [id number] [phone] (HP) Date:2072-67-27FU [address] [place] [address]OL: 04/28/2018 Secondary NOT GIVENUNK [place] Insurance:SELF PAY [facility] Number: Effective Repository Date:2018-04-28 03/30/2018 BRIANDA S Primary BRIANDA S [place] [id number] Insurance:MEDICAL BONTRAGERDOB: [facility] 3001-63-22[place] Number: Repository [address]Xqt: 330 [id number] [phone] (HP) Date:9648-87-00NM [address] [place] [address]LI: 03/30/2018 Secondary NOT GIVENUNK [place] Insurance:SELF PAY [facility] Number: Effective Repository Date:2018-03-30 03/02/2018 BRIANDA S Primary BRIANDA S [place] [id number] Insurance:MEDICAL BONTRAGERDOB: [facility] 0717-66-[place] Number: Repository [address]Qoe: 330 [id number] [phone] (HP) Date:0047-61-64QS [address] [address]PL: 03/02/2018 Secondary NOT GIVENUNK [place] Insurance:SELF PAY [facility] Number: Effective Repository Date:2018-03-02 02/26/2018 BRIANDA S Primary BRIANDA S [place] [id number] Insurance:MEDICAL BONTRAGERDOB: [facility] 6221-01-68BW[place] Number: Repository [address]Nob: 330 [id number] [phone] (HP) Date:9392-05-40OQ [address] [place] [address]MU: 02/26/2018 Secondary NOT GIVENUNK [place] Insurance:SELF PAY [facility] Number: Effective Repository Date:2018-02-02 02/02/2018 BRIANDA Clark Primary BRIANDA S [place] [id number] Insurance:MEDICAL BONTRAGERDOB: [facility] 9713-05-11[place]CK[place] Number: Repository [address]Dxd: (644) [id number] [phone] (HP) Date:0340-35-51H[address] [address]MB: 02/02/2018 Secondary NOT GIVENUNK [place] Insurance:SELF PAY [facility] Number: Effective Repository Date:2018-02-02 01/14/2018 BRIANDA Clark Primary BRIANDA S [place] [id number] Insurance:MEDICAL BONTRAGERDOB: [facility] 1576-23-16DL[place] Number: Repository [address]Dtq: ([phone] [id number] [phone] (HP) Date:1025-61-19CH[address] [address]UR: 01/14/2018 Secondary NOT GIVENUNK [place] Insurance:SELF PAY [facility] Number: Effective Repository Date:2018-01-14 01/06/2018 BRIANDA Clark Primary BRIANDA S [place] [id number] Insurance:MEDICAL BONTRAGERDOB: [facility] 5294-13-31[place] Number: Repository [address]Ahu: 330 [id number] [phone] (HP) Date:3110-18-53NG[address] [address]PZ: 01/06/2018 Secondary NOT GIVENUNK [place] Insurance:SELF PAY [facility] Number: Effective Repository Date:2018-01-06 12/18/2017 BRIANDA S Primary BRIANDA S [place] [id number] Insurance:MEDICAL BONTRAGERDOB: [facility] 1864-88-38[place] Number: Repository [address]Yqc: (235) [id number] [phone] (HP) Date:6979-70-66FC [address] [place] [address]UF: 12/18/2017 Secondary NOT GIVENUNK [place] Insurance:SELF PAY [facility] Number: Effective Repository Date:2017-12-18 12/10/2017 BRIANDA S Primary BRIANDA S [place] [id number] Insurance:MEDICAL BONTRAGERDOB: [facility] 0946-83-05QHZ[place] Number: Repository [address]Bnl: 330 [id number] [phone] (HP) Date:3461-68-79XX [address] [address]ND: 12/10/2017 Secondary NOT GIVENUNK [place] Insurance:SELF PAY [facility] Number: Effective Repository Date:2017-12-10 12/09/2017 BRIANDA S Primary BRIANDA S [place] [id number] Insurance:MEDICAL BONTRAGERDOB: [facility] 8378-57-19[place] Number: Repository [address]Tcf: 330 [id number] [phone] Date:9363-26-38UF [address] [address]ER: 12/09/2017 Secondary NOT GIVENUNK [place] Insurance:SELF PAY [facility] Number: Effective Repository Date:2017-12-09 12/09/2017 BRIANDA S Primary BRIANDA S [place] [id number] Insurance:MEDICAL BONTRAGERDOB: [facility] 5577-57-27[place] Number: Repository [address]Vsc: 330 [id number] [phone]) Date:3401-19-88KR [address] [address]HF: 12/09/2017 Secondary NOT GIVENUNK [place] Insurance:SELF PAY [facility] Number: Effective Repository Date:2017-12-09 11/14/2017 BRIANDA Clark Primary BRIANDA Pineda [id number] Insurance:MEDICAL BONTRAGERDOB: [address], [place] Number: Repository [address]Eak: [phone] [id number] [phone] () Date:2220-74-85SW [address] [place] [address]NB: 11/14/2017 Secondary NOT GIVENUNK [place] Insurance:SELF PAY [facility] Number: Effective Repository Date:2017-11-14 11/12/2017 BRIANDA Primary BRIANDA Pineda [id number] Insurance:MEDICAL BONTRAGERDOB: [address], [place] Number: Repository [address]Nrh: ([phone]) [id number] [phone] () Date:4600-33-30SN [address] [place] [address]DB: 11/12/2017 Secondary NOT GIVENUNK [place] Insurance:SELF PAY [facility] Number: Effective Repository Date:2017-11-12
== END 2018-05-20 11:35 | disposition home or self-care (01) ==
LOC: WPOUT 09:09 → WP 09:11
PROVIDERS: Family Provider Internal Medicine; PCP Internal Medicine; Referring Provider Obstetrics & Gynecology; Visit Provider Obstetrics & Gynecology
DX: O60.00 Preterm labor without delivery, unspecified trimester (principal); Z3A.00 Weeks of gestation of pregnancy not specified
CPT/HCPCS: 59025; 59050; 81001; 82731; 87086; 87088; 99218; G0378

== ENCOUNTER → 2018-06-25 17:14 | Outpatient (CLI) | payer OTHER, SELFPAY ==
[2018-06-25 08:03] VITALS: BMI 27.4
== END ==
PROVIDERS: Referring Provider Nurse Practitioner Women's Health; Visit Provider Nurse Practitioner Women's Health
DX: Z34.90 Encounter for supervision of normal pregnancy, unspecified, unspecified trimester (principal)
CPT/HCPCS: 87081

== ENCOUNTER 2018-07-28 06:55 | Inpatient (IN) | payer OTHER, SELFPAY ==
[2018-07-01 08:06] VITALS: BMI 29.1
[2018-07-27 14:16] VITALS: BMI 29.7
[2018-07-28] VITALS (9 sets, daily range): BP systolic 110–140; BP diastolic 32–71; PULSE 89–105; RESP 16–18; TEMP 36.5–37.2; O2SAT 95–98; BMI 30.9
[2018-07-28] MEDS: Lactated Ringers 1,000 ML 50 ML IV ×3 (07:38→19:25)
[2018-07-28 08:03] LABS: Hemoglobin 13.4 g/dl (12.0-15.0); Mean Corp Hgb Conc 32.7 g/gl (32-36); Mean Corpuscular Hgb 30.5 pg (27.0-32.0); Mean Corpuscular Volume 93.4 fL (81-99); Mean Platelet Vol. 10.3 fl (6.2-12.0); Platelet Count 165 K/mm3 (150-450); RBC Distribution Width CV 13.6 % (11.6-14.6); Red Blood Count 4.39 M/mm3 (4.2-5.4); White Blood Count 10.4 K/mm3 (4.4-11.0)
[2018-07-28 08:04] LABS: Scan Indicated on CBC? Y/N NO
[2018-07-28] MEDS: Oxytocin 30 units/NS 500 ml 30 UNITS/500 ML IV.SOLN IV (08:09)
--- NOTE | 2018-07-28 14:20 | PCM.HP.OB ---
- Problem List (1) Post-dates Status: Acute (2) Status: Acute Qualifiers: Comment: genetic and carrier screening declined. ntd screening declned. normal anatomy scan. (3) Supervision of normal Status: Acute Qualifiers: Comment: PRR TONI 07/21/18 gender surprise Christian History Date of Admission: 07/28/18 Final TONI: 07/21/18 Gestational age: 41 Weeks and 0 Days History of this : This is a 28 year-old, at 41 weeks gestational age presents IOL postdates. Allergies No Known Allergies Allergy (Verified 07/28/18 07:30) Home Medications: Home Medications Vit No.130/Iron/Folic [ Tablet] 1 each PO DAILY 07/28/18 Smoking Status: Former smoker Alcohol: None Number of Fetus(es): 1 Heart Tracin moderate variability reactive no decelerations category I tracing Pritchett: regular History Past Pregnancies: Past Pregnancies Delivery Date Name GA/Weeks Outcome Route Weight Gender Labor Length Anesthesia Delivery Location Provider FOB Labs: Mom's Labs & Results 07/28/18 07/28/18 07:38 07:38 WBC 10.4 RBC 4.39 Hgb 13.4 Hct 41.0 MCV 93.4 MCH 30.5 MCHC 32.7 RDW 13.6 RDW Differential 46.0 H Plt Count 165 MPV 10.3 Blood Type A POSITIVE Antibody Screen NEGATIVE Course Did the patient receive Yes care? Labs Blood Type: A RH: POSITIVE RPR/VDRL/Syphilis Nonreactive Rubella status Immune HbSAg Negative Date Done: 12/10/18 Chlamydia Negative Gonorrhea Negative HIV/AIDS Non-Reactive Group B Strep: Negative Current Obstetrical History Gestational Diabetes No Incompetent Cervix No Infertility No IUGR No Macrosomia No Hypertension/Pre-eclampsia No Placenta Previa/Abruption No PTL/PROM No Uterine anomaly No Oligohydramnios No Polyhydramnios No Multiple gestation No Past Medical History Asthma No Diabetes No Hypertension No Heart disease No Mitral valve prolapse No Neurologic/Seizure disorder/ No Migraines Kidney disease No Liver disease No Varicosities No Clotting disorders/Hx of DVT No Thyroid Dysfunction No Other medical diseases No Psychiatric disorders No Major trauma No Abnormal PAP smear No Sleep apnea No Mammogram in the last 2 years No Social History Marital Status: Alleged father christian Hx Smoking No Smoking Status Former smoker Expected Delivery Method: Spontaneous Vaginal Review of Systems Constitutional: Denies: Fever, Malaise Eyes: Denies: Blurred vision, Vision Change HEENT: Denies: Head Aches, Visual Changes Cardiovascular: Denies: Chest Pain, Palpitations Respiratory: Denies: Cough, Shortness of Breath, Wheezing Gastrointestinal: Denies: Abdominal Pain, Diarrhea, Nausea, Vomiting Genitourinary: Denies: Dysuria, Hematuria Musculoskeletal: Denies: Joint Pain, Muscle pain Skin: Denies: Lesions, Rash Neurological: Denies: Blurred vision, Focal weakness, Headaches Psychiatric: Denies: Anxiety, Depression Endocrine: Denies: Heat/ Cold Intolerance Hematologic/ Lymphatic: Denies: Easy Bruising, Easy Bleeding Physical Exam General: Alert, Cooperative, No apparent distress HEENT: Atraumatic, Normocephalic. Negative for: Thyromegaly, Lymphadenopathy Cardiovascular: Regular rate Lungs: Normal air movement Abdomen: Soft, Non Tender, Gravid Neurological: Deep Tendon Reflexes 2+/4 and Symmetrical, Neuro grossly intact. Negative for: Clonus HEARING THERAPY DIRECTOR: Normal external genitalia. Negative for: Vulvar lesions Estimated gestational size: Appropriate for gestational size Presentation: Cephalic Assessment/Plan All Active Problems (Last Reviewed 07/27/18 @ 13:05 by Allison Mora) Post-dates (Acute) (Acute) Supervision of normal (Acute) Threatened labor (Resolved) This is a 28 year-old, at 41 weeks gestational age IOL postdates Patient presents IOL, plan expectant management for , pitocin/AROM PRN if needed Pain management: plans epidural. GBS negative. Management of any complications: none [facility] and made any clinically relevant updates.
--- NOTE | 2018-07-28 14:26 | HP.PCM_ITS ---
- Problem List (1) Post-dates Status: Acute (2) Status: Acute Qualifiers: Comment: genetic and carrier screening declined. ntd screening declned. normal anatomy scan. (3) Supervision of normal Status: Acute Qualifiers: Comment: PRR TONI 07/21/18 gender surprise Christian History Date of Admission: 07/28/18 Final TONI: 07/21/18 Gestational age: 41 Weeks and 0 Days History of this : This is a 28 year-old, at 41 weeks gestational age presents IOL postdates. Allergies No Known Allergies Allergy (Verified 07/28/18 07:30) Home Medications: Home Medications Vit No.130/Iron/Folic [ Tablet] 1 each PO DAILY 07/28/18 Smoking Status: Former smoker Alcohol: None Number of Fetus(es): 1 Heart Tracin moderate variability reactive no decelerations category I tracing Burt: regular History Past Pregnancies: Past Pregnancies Delivery Date Name GA/Weeks Outcome Route Weight Gender Labor Length Anesthesia Delivery Location Provider FOB Labs: Mom's Labs & Results 07/28/18 07/28/18 07:38 07:38 WBC 10.4 RBC 4.39 Hgb 13.4 Hct 41.0 MCV 93.4 MCH 30.5 MCHC 32.7 RDW 13.6 RDW Differential 46.0 H Plt Count 165 MPV 10.3 Blood Type A POSITIVE Antibody Screen NEGATIVE Course Did the patient receive Yes care? Labs Blood Type: A RH: POSITIVE RPR/VDRL/Syphilis Nonreactive Rubella status Immune HbSAg Negative Date Done: 12/10/18 Chlamydia Negative Gonorrhea Negative HIV/AIDS Non-Reactive Group B Strep: Negative Current Obstetrical History Gestational Diabetes No Incompetent Cervix No Infertility No IUGR No Macrosomia No Hypertension/Pre-eclampsia No Placenta Previa/Abruption No PTL/PROM No Uterine anomaly No Oligohydramnios No Polyhydramnios No Multiple gestation No Past Medical History Asthma No Diabetes No Hypertension No Heart disease No Mitral valve prolapse No Neurologic/Seizure disorder/ No Migraines Kidney disease No Liver disease No Varicosities No Clotting disorders/Hx of DVT No Thyroid Dysfunction No Other medical diseases No Psychiatric disorders No Major trauma No Abnormal PAP smear No Sleep apnea No Mammogram in the last 2 years No Social History Marital Status: Alleged father christian Hx Smoking No Smoking Status Former smoker Expected Delivery Method: Spontaneous Vaginal Review of Systems Constitutional: Denies: Fever, Malaise Eyes: Denies: Blurred vision, Vision Change HEENT: Denies: Head Aches, Visual Changes Cardiovascular: Denies: Chest Pain, Palpitations Respiratory: Denies: Cough, Shortness of Breath, Wheezing Gastrointestinal: Denies: Abdominal Pain, Diarrhea, Nausea, Vomiting Genitourinary: Denies: Dysuria, Hematuria Musculoskeletal: Denies: Joint Pain, Muscle pain Skin: Denies: Lesions, Rash Neurological: Denies: Blurred vision, Focal weakness, Headaches Psychiatric: Denies: Anxiety, Depression Endocrine: Denies: Heat/ Cold Intolerance Hematologic/ Lymphatic: Denies: Easy Bruising, Easy Bleeding Physical Exam General: Alert, Cooperative, No apparent distress HEENT: Atraumatic, Normocephalic. Negative for: Thyromegaly, Lymphadenopathy Cardiovascular: Regular rate Lungs: Normal air movement Abdomen: Soft, Non Tender, Gravid Neurological: Deep Tendon Reflexes 2+/4 and Symmetrical, Neuro grossly intact. Negative for: Clonus TYPEWRITER REPAIRER: Normal external genitalia. Negative for: Vulvar lesions Estimated gestational size: Appropriate for gestational size Presentation: Cephalic Assessment/Plan All Active Problems (Last Reviewed 07/27/18 @ 13:05 by Allison Mora) Post-dates (Acute) (Acute) Supervision of normal (Acute) Threatened labor (Resolved) This is a 28 year-old, at 41 weeks gestational age IOL postdates Patient presents IOL, plan expectant management for , pitocin/AROM PRN if needed Pain management: plans epidural. GBS negative. Management of any complications: none [facility] and made any clinically relevant updates.
[2018-07-28] MEDS: fentaNYL-bupivacaine (epidural) 100 ML BAG EPIDURAL ×2 (14:51→19:25)
[2018-07-28] MEDS: Mag Hydrox/Al Hydrox/Simeth 30 ML UDC PO (18:09)
[2018-07-28] MEDS: Sodium Citrate/Citric Acid 30 ML UDC PO (20:52)
--- NOTE | 2018-07-28 20:57 | OP.PCM_ITS ---
Problem List (1) Post-dates Status: Acute (2) Status: Acute Qualifiers: Comment: genetic and carrier screening declined. ntd screening declned. normal anatomy scan. (3) Supervision of normal Status: Acute Qualifiers: Comment: PRR TONI 07/21/18 gender surprise Christian (4) Arrest of descent, delivered, current hospitalization Status: Acute (5) Cephalopelvic disproportion Status: Acute Report of Operation Date of Procedure: 07/28/18 Pre-Operative Diagnosis: Arrest of descent, suspected CPD Post-Operative Diagnosis: Same plus confirmed CPD Surgery/Procedure Performed:: Primary low transverse secondary to arrest of descent and CPD Description of Surgical Findings:: Female vertex +2 station, uterus tubes and ovaries sewage disposal worker: Harry Bellamy Type of Anesthesia:: Epidural Specimen's removed: female infant in vertex presentation Drains: garcia Estimated Blood Loss (mL): 800 Fluids Replaced: Crystalloid Description of Procedure: The patient is a 28-year-old who presented at 41 weeks for induction of labor secondary to postdates. She was 3-4 cm at the beginning of induction and was induced with Pitocin, artificial rupture of membranes and received an epidural. She proceeded to complete dilation and began pushing and after 4 hours and 15 minutes of high quality pushing in different positions there was still an arrest of descent at a +2 station and suspected CPD. Patient was counseled regarding the decision for primary low transverse and she agreed to proceed. The patient was placed in the dorsal supine position with leftward tilt. Patient was prepped and draped in the normal sterile fashion. Pfannenstiel skin incision was made with the scalpel and carried through to the underlying layer of fascia with the scalpel. Fascia was nicked in the midline and the incision extended laterally. The rectus bellies were dissected off superiorly and inferiorly with out complication both sharply and bluntly. The peritoneum was entered digitally. The incision was stretched and a low transverse uterine incision was made with the scalpel. The infant's head was delivered atraumatically followed by the anterior and posterior shoulders without complication the rest of the infant delivered. The cord was clamped and cut and the was handed off to awaiting nurse. The placenta was delivered spontaneously immediately following and was noted to be intact and have a three- vessel cord. The uterus was exteriorized cleared of all clots and debris, and the incision was closed in a double layer closure using #1 Monocryl. The uterus was returned to the maternal abdomen and gutters were cleared of all clots and debris. The ovaries and fallopian tubes were noted to be within normal limits. The peritoneum was closed with 3-0 Monocryl in a running fashion. Fascia was closed with 0 PDS in a running fashion. Subcutaneous tissue was copiously irrigated and the skin was closed with 3-0 Monocryl in a subcuticular fashion. Mepilex dressing were applied without complication. Patient was taken to recovery in stable condition. Grafts/Implants Used: none - Complications none - Admit VTE Documentation VTE Present on Admission: No VTE Mechan Device Prophylaxis: SCD's
--- NOTE | 2018-07-28 20:57 | PCM.PN.BLA ---
Progress Note Patient has been pushing for over 4 hours with an arrest of descent at the +1-+2 station. Significant caput is noted and a prominent pubic arch is noted. I discussed with the patient the risk benefits and alternatives of the and I would not recommend a vacuum application due to suspected CPD. Patient agrees to proceed with primary low transverse . Category 2 tracing with periods of minimal variability and intermittent late decelerations.
[2018-07-28] MEDS: Cefazolin 2 GM in 0.9% Normal Saline 100 ML IV (21:00)
[2018-07-28] MEDS: Oxytocin 30 units/NS 500 ml 30 UNITS/500 ML IV.SOLN 167 UNITS IV (21:17)
[2018-07-28] MEDS: Lactated Ringers 1,000 ML 100 ML IV (22:22)
--- NOTE | 2018-07-28 22:22 | NURSING ---
Ice pack applied to perineum
--- NOTE | 2018-07-28 23:22 | NURSING ---
Tucks pads applied to perineum
[2018-07-29] VITALS (18 sets, daily range): BP systolic 102–140; BP diastolic 50–70; PULSE 85–107; RESP 16; TEMP 35.6–37.4; O2SAT 95–99
[2018-07-29] MEDS: Ketorolac 30 MG/ML Syringe IV ×4 (03:22→21:48)
--- NOTE | 2018-07-29 06:20 | NURSING ---
New sosa pad, ice and tucks applied to perineum
[2018-07-29 07:01] LABS: Hematocrit 31.3 % (37-47); Hemoglobin 10.2 g/dl (12.0-15.0); Mean Corp Hgb Conc 32.6 g/gl (32-36); Mean Corpuscular Hgb 30.5 pg (27.0-32.0); Mean Corpuscular Volume 93.7 fL (81-99); Mean Platelet Vol. 10.2 fl (6.2-12.0); Platelet Count 148 K/mm3 (150-450); RBC Distribution Width CV 13.8 % (11.6-14.6); RBC Distribution Width SD 47.3 fl (35.1-43.9); Red Blood Count 3.34 M/mm3 (4.2-5.4); White Blood Count 10.8 K/mm3 (4.4-11.0)
[2018-07-29 07:03] LABS: Scan Indicated on CBC? Y/N NO
[2018-07-29] MEDS: Lactated Ringers 1,000 ML 100 ML IV (07:53)
--- NOTE | 2018-07-29 08:30 | PCM.PN.OB ---
Patient Problems: Active and Suspected Problems (Last Reviewed 07/27/18 @ 13:05 by Allison Mora) Post-dates (Acute) Arrest of descent, delivered, current hospitalization (Acute) Cephalopelvic disproportion (Acute) Subjective: Doing well. Sitting up in bed. States pain controlled. No CP, SOB - Physical Exam General: Alert, Oriented x3 Abdomen: Soft, Non Tender, Non-Distended, - - FF below U. Dressing dry and intact Vital Signs Temp Pulse Resp BP Pulse Ox 97.0 F L 85 16 108/51 L 96 07/29/18 06:20 07/29/18 08:20 07/29/18 08:20 07/29/18 06:20 07/29/18 08:20 Oxygen Delivery Method Room Air Weight: 197 lb 1.492 oz Body Mass Index (BMI) 30.9 Intake and Output for Last 24 Hours 07/27/18 07/28/18 07/29/18 23:59 23:59 23:59 Intake Total 3738 / 3738 1089 / 1089 Output Total 1150 / 1150 550 / 550 Balance 2588 / 2588 539 / 539 Laboratory Tests Past 24 Hrs 07/28/18 07/29/18 07:38 06:23 WBC 10.8 RBC 3.34 L Hgb 10.2 L Hct 31.3 L MCV 93.7 MCH 30.5 MCHC 32.6 RDW 13.8 RDW Differential 47.3 H Plt Count 148 L MPV 10.2 Blood Type A POSITIVE Antibody Screen NEGATIVE Medical Necessity - Tobacco Use Smoking Status: Former smoker Assessment/Plan All Active Problems (Last Reviewed 07/27/18 @ 13:05 by Allison Mora) Post-dates (Acute) Arrest of descent, delivered, current hospitalization (Acute) Cephalopelvic disproportion (Acute) (Acute) Supervision of normal (Acute) Threatened labor (Resolved) LTPCS POD#1: Routine care. Pain controlled. .
[2018-07-29] MEDS: 0.9% Saline Lock 10 ML Syringe IV ×4 (09:28→21:48)
[2018-07-29] MEDS: Prenatal Vits Tablet 1 TABLET PO (11:51)
--- NOTE | 2018-07-29 22:44 | NURSING ---
Smith catheter left in place due to severe perineal swelling. Catheter care performed. At this time perineal area swollen larger than size of softball and appears pendulous, preventing patient from being able to put legs together. Patient states she does not feel she could sit up to get out of bed to use toilet due to swelling at this time. Patient lying on side with peanut ball between legs, ice and tucks between legs to help reduce swelling. Will continue to monitor and assess swelling.
[2018-07-30] MEDS: 0.9% Saline Lock 10 ML Syringe IV ×3 (02:28→15:05)
[2018-07-30] MEDS: Ketorolac 30 MG/ML Syringe IV ×3 (02:28→15:05)
[2018-07-30 02:30] VITALS: BP 124/70; PULSE 79; RESP 16; TEMP 37.4; O2SAT 96
[2018-07-30] MEDS: oxyCODONE 5 MG Tablet PO (03:19)
--- NOTE | 2018-07-30 06:46 | NURSING ---
Patient's ice pack and tucks changed four times this shift. Swelling remains the same. Dr. Gore notified that garcia is still in place. Claudette Atkins NP or Dr. Gore will assess swelling today.
--- NOTE | 2018-07-30 07:47 | PCM.PN.OB ---
Patient Problems: Active and Suspected Problems (Last Reviewed 07/27/18 @ 13:05 by Allison Mora) Post-dates (Acute) Arrest of descent, delivered, current hospitalization (Acute) Cephalopelvic disproportion (Acute) Subjective: Significant edema and discomfort of bilateral labia. States does feel better this AM. Garcia still in place. No SOB,CP - Physical Exam General: Alert, Oriented x3 Abdomen: Soft, Non-Distended, - - FF below U. Dressing dry and intact. Bilateral labia with significant edema, soft. No firm masses. Tolerates exam well. Vital Signs Temp Pulse Resp BP Pulse Ox 99.4 F H 79 16 124/70 H 96 07/30/18 02:30 07/30/18 02:30 07/30/18 02:30 07/30/18 02:30 07/30/18 02:30 Oxygen Delivery Method Room Air Weight: 197 lb 1.492 oz Body Mass Index (BMI) 30.9 Intake and Output for Last 24 Hours 07/28/18 07/29/18 07/30/18 23:59 23:59 23:59 Intake Total 3738 / 3738 2471 / 2471 Output Total 1150 / 1150 3200 / 3200 1700 / 1700 Balance 2588 / 2588 -729 / -729 -1700 / -1700 Medical Necessity - Tobacco Use Smoking Status: Former smoker Assessment/Plan All Active Problems (Last Reviewed 07/27/18 @ 13:05 by Allison Mora) Post-dates (Acute) Arrest of descent, delivered, current hospitalization (Acute) Cephalopelvic disproportion (Acute) (Acute) Supervision of normal (Acute) Threatened labor (Resolved) LTPCS CPD FTPPOD #2: Attempt to remove garcia and ambulate. Otherwise routine care. Encouraged routine pain med to control discomfort. .
[2018-07-30 08:45] VITALS: BP 129/74; PULSE 86; RESP 18; TEMP 36.8; O2SAT 95
[2018-07-30] MEDS: Prenatal Vits Tablet 1 TABLET PO (09:03)
[2018-07-30 14:55] VITALS: BP 128/73; PULSE 78; RESP 18; TEMP 36.6; O2SAT 98
[2018-07-30] MEDS: Naproxen 250 MG Tablet PO (20:22)
[2018-07-30 20:25] VITALS: BP 136/71; PULSE 94; RESP 16; TEMP 37.5
--- NOTE | 2018-07-30 22:35 | DCINST_ITS ---
Discharge Diet: No Restrictions Discharge Activity: May Not Drive - for 2 weeks, May not drive while taking narcotic pain medications., May Shower, May Take a Tub Bath - in 7 days May resume sexual activity in: 4-6 weeks Lifting Restrictions: 20 pounds Additional Activity Instructions:: Nothing in the vagina for 4-6 weeks. You may return to work/school in 6 weeks. Call your doctor if your incision/area has: Continuous Slow Oozing, Sudden Increased Bleeding, Increased Pain/ Swelling, Increased Redness, Foul Smelling Discharge Call your doctor if you observe: Fever of 101 or Higher, Using more than one pad per hour - for 2 hours Suture Line Care: Avoid Pulling/Pushing, Avoid Pinching/Bending Cleanse incision/area with: Keep Dressing Clean & Dry Additional Instructions: If you experience any of the following, contact your healthcare provider. * Bleeding that soaks a pad every hour for 2 hours * Fever 100.4 or higher * Unrelieved incision or abdominal pain * Swelling, redness, discharge or bleeding from your incision or episiotomy site * Your incision begins to separate * Problems urinating (including inability to urinate or burning while urinating). * Visual changes * Severe headache * Flu-like symptoms * Pain or redness in one of both of your breasts * Pain, warmth, tenderness or swelling in your legs, especially the calf area * Frequent nausea and vomiting * Symptoms of depression or anxiety If you experience any of the following, call 911 or go to the nearest Emergency Room. * Chest pain * Problems breathing * Seizure activity * Partial or complete paralysis of a body part, slurred speech, weakness or drooping of the face, or a sudden inability to walk or hold your balance Allergies/Adverse Reactions: Allergies No Known Allergies Allergy (Verified 07/28/18 07:30) Medications to take at Discharge Vit No.130/Iron/Folic [ Tablet] 1 each PO DAILY 07/28/18 Follow-Up: Call to make an appointment with your doctor for an incision check in 1-2 weeks. You will also need a 6 week post- follow up appointment. Test results from this visit will be discussed in further detail at your follow- up appointment, if applicable. Please Follow Up With: Emily Gore MD - Call to make an appointment for an incision check in 1-2 [phone] When: You will need a post- check in 6 weeks. Primary Care Physician: Janice Gandhi MD [Primary Care Provider] -
[2018-07-31] MEDS: oxyCODONE 5 MG Tablet PO ×2 (00:03→07:45)
[2018-07-31 02:00] VITALS: BP 126/69; PULSE 88; RESP 16; TEMP 37.2
[2018-07-31] MEDS: Naproxen 250 MG Tablet PO (07:45)
[2018-07-31] MEDS: Prenatal Vits Tablet 1 TABLET PO (07:46)
[2018-07-31 08:00] VITALS: BP 135/66; PULSE 83; RESP 16; TEMP 36.7
[2018-07-31 12:24] VITALS: BP 139/82; PULSE 103; RESP 16; TEMP 36.2
--- NOTE | 2018-08-03 09:28 | PCM.DC.SUM ---
Discharge Date and Diagnosis Date of Admission: 07/28/18 Date of Discharge: 08/01/18 - Primary Discharge Diagnosis section Hospital Course and Treatment Consultations 07/28/18 07:08 Consult: Anesthesia Routine Comment: Reason For Exam: Operations: - - ltcs Summary of Care Provided: The patient is a 28 year old F iol postdates pushed over 4 hours and had primary . patient had a return of bowel and bladder function. stable for discharge to home - Physical Exam Vital Signs Temp Pulse Resp BP Pulse Ox 97.1 F L 103 H 16 139/82 H 98 07/31/18 12:24 07/31/18 12:24 07/31/18 12:24 07/31/18 12:24 07/30/18 14:55 Oxygen Delivery Method Room Air Weight: 197 lb 1.492 oz Body Mass Index (BMI) 30.9 Discharge Diet: No Restrictions Discharge Activity: May Not Drive - for 2 weeks, May not drive while taking narcotic pain medications., May Shower, May Take a Tub Bath - in 7 days May resume sexual activity in: 4-6 weeks Additional Activity Instructions:: Nothing in the vagina for 4-6 weeks. You may return to work/school in 6 weeks. Call your doctor if your incision/area has: Continuous Slow Oozing, Sudden Increased Bleeding, Increased Pain/ Swelling, Increased Redness, Foul Smelling Discharge Call your doctor if you observe: Fever of 101 or Higher, Using more than one pad per hour - for 2 hours Suture Line Care: Avoid Pulling/Pushing, Avoid Pinching/Bending Cleanse incision/area with: Keep Dressing Clean & Dry Home Medications: Medications to take at Discharge Vit No.130/Iron/Folic [ Tablet] 1 each PO DAILY 07/28/18 Naproxen [Naprosyn] 250 - 500 mg PO Q8H PRN PRN #30 tablet 07/30/18 Oxycodone HCl/Acetaminophen [Percocet 5-325] 1 - 2 tablet PO Q4H PRN PRN 7 Days #28 tablet 07/30/18 Following Prescrptions Were Given to Patient: Oxycodone HCl/Acetaminophen [Percocet 5-325] 1 - 2 tablet PO Q4H PRN PRN 7 Days #28 tablet PRN Reason: Moderate-Severe pain Naproxen [Naprosyn] 250 - 500 mg PO Q8H PRN PRN #30 tablet PRN Reason: MILD PAIN Primary Care Physician: Janice Gandhi MD [Primary Care Provider] - Please Follow Up With: Emily Gore MD - Call to make an appointment for an incision check in 1-2 [phone] When: You will need a post- check in 6 weeks. Medical Necessity - Tobacco Use Smoking Status: Former smoker Meaningful Use Info Meaningful Use Diagnoses (Choose all that apply): None applicable
--- NOTE | 2018-08-06 14:20 | NURSING ---
States doing well , baby nursing well and nipples feeling better. Had good experience.
== END 2018-07-31 12:45 | disposition home or self-care (01) | DRG 788 ==
PROVIDERS: Admitting Provider Obstetrics & Gynecology; Family Provider Internal Medicine; PCP Internal Medicine; Referring Provider Obstetrics & Gynecology; Visit Provider Obstetrics & Gynecology
DX: O32.4XX0 Maternal care for high head at term, not applicable or unspecified (principal); O65.9 Obstructed labor due to maternal pelvic abnormality, unspecified; O76 Abnormality in fetal heart rate and rhythm complicating labor and delivery; O48.0 Post-term pregnancy; Z3A.41 41 weeks gestation of pregnancy; Z37.0 Single live birth; Z87.891 Personal history of nicotine dependence
CPT/HCPCS: 59025; 59050; 85027; 86850; 86900; 99218; J7120; A4216; G0378; J2405

== ENCOUNTER → 2020-03-30 15:32 | Outpatient (CLI) | payer OTHER, SELFPAY ==
[2019-11-04 14:23] VITALS: BMI 23.6
[2020-03-30 18:10] LABS: hCG Titer Quant., Serum 16 mIU/mL (1-3)
== END ==
PROVIDERS: PCP Internal Medicine; Referring Provider Obstetrics & Gynecology; Visit Provider Obstetrics & Gynecology
CPT/HCPCS: 36415; 84702

== ENCOUNTER → 2020-04-01 | Outpatient (CLI) | payer OTHER, SELFPAY ==
[2019-11-04 14:23] VITALS: BMI 23.6
[2020-04-01 17:08] LABS: hCG Titer Quant., Serum 64 mIU/mL (1-3)
== END | disposition home or self-care (01) ==
PROVIDERS: PCP Internal Medicine; Referring Provider Obstetrics & Gynecology; Visit Provider Obstetrics & Gynecology
DX: O20.0 Threatened abortion (principal); Z3A.00 Weeks of gestation of pregnancy not specified
CPT/HCPCS: 84702

== ENCOUNTER → 2020-04-03 21:31 | Outpatient (CLI) | payer OTHER, SELFPAY ==
[2019-11-04 14:23] VITALS: BMI 23.6
[2020-04-03 22:04] LABS: hCG Titer Quant., Serum 252 mIU/mL (1-3)
== END ==
PROVIDERS: PCP Internal Medicine; Referring Provider Obstetrics & Gynecology; Visit Provider Obstetrics & Gynecology
DX: O20.0 Threatened abortion (principal); Z3A.00 Weeks of gestation of pregnancy not specified
CPT/HCPCS: 84702

== ENCOUNTER → 2020-04-11 09:06 | Outpatient (CLI) | payer OTHER, SELFPAY ==
[2019-11-04 14:23] VITALS: BMI 23.6
[2020-04-11 10:15] LABS: hCG Titer Quant., Serum 2893 mIU/mL (1-3)
== END ==
PROVIDERS: PCP Internal Medicine; Referring Provider Nurse Practitioner Women's Health; Visit Provider Nurse Practitioner Women's Health
DX: O20.0 Threatened abortion (principal)
CPT/HCPCS: 36415; 84702

== ENCOUNTER → 2020-04-12 13:17 | Outpatient (CLI) | payer OTHER, SELFPAY ==
[2019-11-04 14:23] VITALS: BMI 23.6
--- NOTE | 2020-04-12 13:18 | US_ITS ---
STUDY: FIRST TRIMESTER OBSTETRICAL ULTRASOUND REASON FOR EXAM: Female, 29 years old dating LMP: 03/07/2020. TECHNIQUE: Transvaginal TECHNICAL QUALITY: Adequate. PRIOR ULTRASOUND: None. FINDINGS: There is visualization of a single gestational sac in a normal intrauterine position. The mean sac diameter (MSD) measures 6.7 mm, indicating an estimated gestational age (EGA) of 5 weeks, 1 days. The gestational sac shape is within normal limits. There is a visualized yolk sac. The yolk sac measures 2.2 mm. The placenta is non-visualized. There is no demonstrated embryo ( pole). The estimated gestation age (EGA) by LMP is 5 weeks, 1 days. The estimated date of delivery (TONI) by LMP is 12/12/2020. The estimated gestation age (EGA) by US is 5 weeks, 1 days. The estimated date of delivery (TONI) by US is 12/12/2020. The uterus measures 7.3 cm x 5.6 cm x 4.9 cm. There is no demonstrated uterine fibroid. The cervix is closed. The right ovary measures 3.2 cm x 2.5 cm x 2.4 cm. There is no right ovarian cyst. There is no visualized right adnexal mass or complex lesion. The left ovary measures 2.8 cm x 1.4 cm x 1 cm. There is no left ovarian cyst. There is no visualized left adnexal mass or complex lesion. There is minimal fluid in the cul de sac. US/Init OB < 14Wks US IMPRESSION: Single live intrauterine gestation with a mean gestational age of 5 weeks and 1 day. Electronically Signed: Antoine Cherry, at 15:42 EDT , Service support ,
== END ==
PROVIDERS: PCP Internal Medicine; Referring Provider Nurse Practitioner Women's Health; Visit Provider Nurse Practitioner Women's Health
DX: Z34.80 Encounter for supervision of other normal pregnancy, unspecified trimester (principal)
CPT/HCPCS: 76801

== ENCOUNTER → 2020-04-26 15:18 | Outpatient (CLI) | payer OTHER, SELFPAY ==
[2020-04-26 14:11] VITALS: BMI 23.7
[2020-04-26 15:36] LABS: Absolute Lymphocyte Count 1.78 X10^3/uL (0.83-4.51); Absolute Neutrophil Count 4.5 X10^3/uL (2.0-7.7); Basophil# 0.03 X10^3/uL; Basophil% 0.4 % (0-1); Eosinophil# 0.03 X10^3/uL; Eosinophils% 0.4 % (0-5); Hematocrit 40.8 % (37-47); Hemoglobin 13.2 g/dL (12.0-15.0); Lymphocyte # 1.78 X10^3/ul (4.0); Lymphocyte % 26.1 % (19-41); Mean Corp Hgb Conc 32.4 g/dL (32-36); Mean Corpuscular Hgb 30.9 pg (27.0-32.0); Mean Corpuscular Volume 95.6 fL (81-99); Mean Platelet Vol. 9.3 fl (6.2-12.0); Monocyte% 7.3 % (0-10); NRBC Flagged by Analyzer 0 % (0-5); Neutrophil # 4.45 X10^3/uL (2.7-7.7); Neutrophil % 65.5 % (47-70); Platelet Count 200 K/mm3 (150-450); RBC Distribution Width CV 12.1 % (11.6-14.6); RBC Distribution Width SD 42.3 fl (35.1-43.9); Red Blood Count 4.27 M/mm3 (4.2-5.4); White Blood Count 6.8 K/mm3 (4.4-11.0)
[2020-04-26 17:20] LABS: Amphetamine Urine VISTA NEGATIVE (<1000 ng/mL); Barbiturate Urine VISTA NEGATIVE (< 200 ng/mL); Benzodiazepine Urine VISTA NEGATIVE (< 200 ng/mL); Cocaine Urine VISTA NEGATIVE (< 300 ng/mL); Ecstacy Urine VISTA NEGATIVE (< 500 ng/mL); Methadone Urine VISTA NEGATIVE (< 300 ng/mL); PCP Urine VISTA NEGATIVE (< 25 ng/mL); THC Urine VISTA NEGATIVE (< 50 ng/mL); Vista UDS pH Range 6
[2020-04-27 02:11] LABS: Rapid Plasmin Reagin (RPR) NONREACTIVE (NONREACTIVE)
[2020-04-27 14:49] LABS: HIV - WCH Non-Reactive (Nonreactive); Hepatitis B Surface Antigen Non-Reactive (Nonreactive); Hepatitis C Antibody Non-Reactive (Nonreactive)
[2020-04-29 03:07] LABS: Chlamydia By Nucleic Acid AMP Negative (Negative)
[2020-04-29 10:33] LABS: Gonococcus By Nucleic Acid AMP Negative (Negative)
== END ==
PROVIDERS: PCP Internal Medicine; Referring Provider Obstetrics & Gynecology; Visit Provider Obstetrics & Gynecology
DX: Z34.80 Encounter for supervision of other normal pregnancy, unspecified trimester (principal)
CPT/HCPCS: 36415; 80307; 85025; 86592; 86703; 86803; 86850; 86900; 86901; 87086; 87088; 87340; 87491; 87591

== ENCOUNTER → 2020-07-24 14:24 | Outpatient (CLI) | payer OTHER, SELFPAY ==
[2020-06-14 10:17] VITALS: BMI 24.1
[2020-07-12 11:00] VITALS: BMI 24.6
--- NOTE | 2020-07-24 14:29 | US_ITS ---
STUDY: SECOND AND THIRD TRIMESTER OBSTETRICAL ULTRASOUND REASON FOR EXAM: Female, 30 years old ANATOMY SCAN LMP: 03/07/2020. TECHNIQUE: Transabdominal TECHNICAL QUALITY: Adequate. PRIOR ULTRASOUND: Comparison is made with prior study dated 04/12/2020. FINDINGS: There is a single intrauterine fetus. The fetus is in a cephalic presentation. There is demonstrated cardiac activity with a heart rate of 148 bpm. There is a normal amniotic fluid volume. The largest amniotic fluid pocket measures 4.14 cm. The amniotic fluid index (KATERINA) is within normal limits. The placenta is anterior in location and is not low lying. There are Grade 0 placental changes. The cervix measures 3.4 cm in length. The adnexal regions are not visualized. BIOMETRY: BPD: 4.71 cm: 20 weeks, 1 days HC: 17.93 cm: 20 weeks, 2 days AC: 14.87 cm: 20 weeks, 2 days FL: 3.16 cm: 9 weeks, 5 days CI: 74.5% FL/BPD: 67% FL/HC: FL/AC: 21.2% HC/AC: 1.21 age by current US: 19 weeks, 6 days. TONI by current US: 12/12/2020. Estimated weight: 328 grams, +/- 49 grams, 55 %. age by prior US: 19 weeks, 6 days. TONI by prior US: 12/12/2020. Age by LMP: 19 weeks, 6 days. TONI by LMP: 12/12/2020. ANATOMY: Gender: Male Cranium: Normal lateral ventricles. Normal choroid plexus. Normal cerebellum. Normal cisterna magna. Normal face, nose and lips. Chest: Normal 4-chamber heart. Abdomen/Pelvis: Normal diaphragm. Normal stomach. Normal abdominal wall. Normal cord insertion. Normal 3 vessel cord. Normal kidneys. Normal bladder. Spine: Normal cervical spine. Normal thoracic spine. Normal lumbar spine. Normal sacrum. Extremities: Normal bilateral upper extremities. Normal bilateral lower extremities. US/OB Anatomy Scan IMPRESSION: Single live intrauterine gestation with mean gestational age of 19 weeks and 6 days. Electronically Signed: Antoine Cherry MD at 17:16 EST , Service support ,
== END ==
PROVIDERS: PCP Internal Medicine; Referring Provider Obstetrics & Gynecology; Visit Provider Obstetrics & Gynecology
DX: Z34.80 Encounter for supervision of other normal pregnancy, unspecified trimester (principal)
CPT/HCPCS: 76805

== ENCOUNTER → 2020-09-06 12:52 | Outpatient (CLI) | payer OTHER, SELFPAY ==
[2020-09-06 10:32] VITALS: BMI 26.9
== END ==
PROVIDERS: PCP Internal Medicine; Referring Provider Obstetrics & Gynecology; Visit Provider Obstetrics & Gynecology
DX: N89.8 Other specified noninflammatory disorders of vagina (principal)
CPT/HCPCS: 87070; 87077; 87205

== ENCOUNTER → 2020-09-15 11:34 | Outpatient (CLI) | payer OTHER, SELFPAY ==
[2020-09-06 10:32] VITALS: BMI 26.9
[2020-09-15 12:01] LABS: Absolute Lymphocyte Count 1.57 X10^3/uL (0.83-4.51); Absolute Neutrophil Count 4.9 X10^3/uL (2.0-7.7); Basophil# 0.02 X10^3/uL; Basophil% 0.3 % (0-1); Eosinophil# 0.05 X10^3/uL; Eosinophils% 0.7 % (0-5); Hematocrit 35.6 % (37-47); Hemoglobin 11.9 g/dL (12.0-15.0); Lymphocyte # 1.57 X10^3/ul (4.0); Lymphocyte % 22.5 % (19-41); Mean Corp Hgb Conc 33.4 g/dL (32-36); Mean Corpuscular Hgb 32.3 pg (27.0-32.0); Mean Corpuscular Volume 96.7 fL (81-99); Mean Platelet Vol. 9.7 fl (6.2-12.0); Monocyte% 5.7 % (0-10); NRBC Flagged by Analyzer 0 % (0-5); Neutrophil # 4.89 X10^3/uL (2.7-7.7); Neutrophil % 70.2 % (47-70); Platelet Count 156 K/mm3 (150-450); RBC Distribution Width SD 45.1 fl (35.1-43.9); Red Blood Count 3.68 M/mm3 (4.2-5.4)
[2020-09-15 12:12] LABS: Glucose Challenge Gest 1H 50g 114 mg/dL (70-140)
[2020-09-15 12:26] LABS: Rubella IgG Reactive (Nonreactive)
== END ==
PROVIDERS: Obstetrics & Gynecology; PCP Internal Medicine; Referring Provider Obstetrics & Gynecology; Visit Provider Obstetrics & Gynecology
DX: Z34.80 Encounter for supervision of other normal pregnancy, unspecified trimester (principal)
CPT/HCPCS: 36415; 81001; 82950; 85025; 86762

== ENCOUNTER → 2020-10-24 07:32 | Outpatient (CLI) | payer OTHER, SELFPAY ==
[2020-10-18 13:26] VITALS: BMI 27.2
[2020-10-24 01:25] LABS: Mucous, Urine 0 SEEN /hpf (<or=2+); Red Blood Cells-Urine 0 SEEN /hpf (0-5)
[2020-10-24 01:31] LABS: Color, Urine Yellow (Yellow); Glucose, Dipstick Normal (Normal); Ketone-Dipstick 50 mg/dl (Negative); Leukocyte Esterase-Dipstick 500 /ul (Negative); Nitrite-Dipstick Negative (Negative); Occult Blood-Urine Negative /ul (Negative); Protein-Dipstick Negative (Negative); Specific Gravity, Urine 1.015 (1.002-1.030); Urine Bilirubin Dipstick Negative (Negative); Urine Clarity Clear (Clear); Urine Urobilinogen Normal (Normal); Urine pH 6.5 (5.0 - 8.0)
[2020-10-24 01:40] LABS: Bacteria 1+ /hpf (None Seen); Squamous Epithelial Cells - UA 0-5 SEEN /hpf (5-10); White Blood Cells 0-5 SEEN /hpf (0-5)
== END ==
PROVIDERS: Visit Provider Obstetrics & Gynecology
DX: N39.0 Urinary tract infection, site not specified (principal)
CPT/HCPCS: 81001; 87086; 87088

== ENCOUNTER → 2020-10-31 | Outpatient (CLI) | payer OTHER, SELFPAY ==
[2020-10-31 10:22] VITALS: BMI 27.2
== END | disposition home or self-care (01) ==
LOC: LABSPEC 12:55
PROVIDERS: Referring Provider Obstetrics & Gynecology; Visit Provider Obstetrics & Gynecology
DX: N89.8 Other specified noninflammatory disorders of vagina (principal)
CPT/HCPCS: 87070; 87205

== ENCOUNTER 2020-11-23 03:05 | Inpatient (IN) | payer OTHER, SELFPAY ==
[2020-11-22 14:35] VITALS: BMI 27.2
[2020-11-23] VITALS (49 sets, daily range): BP systolic 90–140; BP diastolic 52–79; PULSE 75–122; RESP 16–18; TEMP 36–37.9; O2SAT 80–100; BMI 27.4
[2020-11-23 02:58] LABS: ROM Internal Control Test YES-OK TO RESULT pt. (Internal QC)
[2020-11-23 03:01] LABS: ROM Patient Test POSITIVE (Negative)
[2020-11-23] MEDS: Lactated Ringers 500 ML 999 ML IV (03:40)
[2020-11-23] MEDS: Lactated Ringers 1,000 ML 200 ML IV (03:40)
[2020-11-23 03:59] LABS: Absolute Lymphocyte Count 1.97 X10^3/uL (0.83-4.51); Absolute Neutrophil Count 5.7 X10^3/uL (2.0-7.7); Basophil# 0.01 X10^3/uL; Basophil% 0.1 % (0-1); Eosinophil# 0.06 X10^3/uL; Eosinophils% 0.7 % (0-5); Hematocrit 38.5 % (37-47); Hemoglobin 12.7 g/dL (12.0-15.0); Lymphocyte # 1.97 X10^3/ul (0.83-4.51); Lymphocyte % 23.5 % (19-41); Mean Corpuscular Hgb 31.3 pg (27.0-32.0); Mean Corpuscular Volume 94.8 fL (81-99); Mean Platelet Vol. 10.5 fl (6.2-12.0); Monocyte# 0.63 X10^3/uL; Monocyte% 7.5 % (0-10); NRBC Flagged by Analyzer 0 % (0-5); Neutrophil # 5.67 X10^3/uL (2.7-7.7); Neutrophil % 67.7 % (47-70); Platelet Count 162 K/mm3 (150-450); RBC Distribution Width CV 13.1 % (11.6-14.6); RBC Distribution Width SD 45.1 fl (35.1-43.9); Red Blood Count 4.06 M/mm3 (4.2-5.4); White Blood Count 8.4 K/mm3 (4.4-11.0)
[2020-11-23] MEDS: fentaNYL-bupivacaine (epidural) 100 ML BAG EPIDURAL (04:58)
[2020-11-23] MEDS: Oxytocin 30 units/NS 500 ml 30 UNITS/500 ML IV.SOLN 334 UNITS IV (06:31)
[2020-11-23] MEDS: Methylergonovine 0.2 MG/ML Ampul IM (06:37)
--- NOTE | 2020-11-23 06:44 | HP.PCM.OB_ITS ---
HPI - General General Date of Admission: 11/23/20 HPI Narrative ROCKY SILVA, is a 30 F G2, P1 at 37 weeks who presents with rupture of membranes. Patient has a prior , but desires trial of labor after . Maternal Data Information TONI Calculator Estimated Delivery Date Method Current WG Current Estimate 12/12/20 LMP (Certain) 37w 2d [facility] Medical History (Updated 11/23/20 @ 06:[address] Sofy Toledo MD) Vaginal discharge Home Medications vit no.199-[id number]-nhogb 1 ea PO DAILY 07/28/18 [History Last Taken 11/22/20 08:00] breast pump #1 each 10/05/20 [Rx Last Taken Unknown] Allergy/AdvReac Type Severity Reaction Status Date / Time No Known Allergies Allergy Verified 11/23/20 02:47 Family History Grandfather Heart disease Myocardial infarction Surgical History (Updated 11/23/20 @ 03:38 by Saira Matias) delivery delivered History of surgery Social History number of children: 1 current occupational status: employed Smoking Status: Never smoker alcohol intake: never substance use type: does not use caffeine: Yes what type of physical activity do you participate in: walking seatbelt use: always do you feel safe at home: Yes additional social history: Patient works for [employer] at [employer] InhibOx History 2 Elective abortions Hx Para 1 Spontaneous abortions Hx # Term Pregnancies Ectopic pregnancies Hx # Pregnancies Multiple births # of living children 1 Past Pregnancies Del. Date Name GA/Weeks Outcome Route Bth Weight Infant Gen Labor Lgth Anesthesia Del Locatn Provider FOB 07/28/18 Val 41 live - full term 8lbs Female e pidural [facility] DANIEL Delivery Date: 07/28/18 CPD; AoAmberly Freeman Visit Details Expected Delivery Route/Plan RCD w/SM on 12/07 at 1200 Labor Preferences- : yes christian on Foound control: IUD special requests: none Plans flu vaccine: yes tdap vaccine: yes rhogam: na LARC form signed: yes movement and labor precautions reviewed. Problem list reviewed and updated with the most current plan of care details and appropriate orders placed. Relevant counseling for the gestational age provided. Continue routine care and follow up unless otherwise noted in visit notes/problem list details OB Flowsheet Initial Weight: Not Recorded Date -?-?-?-?-?-?-?-?-?-?-?-?- EGA Weight BP Urine Prot -?-?-?-?-?-?-?-?-?-?-?-?- Glucose FHR FuHt Pres Dilation -?-?-?-?-?-?-?-?-?-?-?-?- Effaced St Visit Note 04/18/20 -?-?-?-?-?-?-?-?-?-?-?-?- 6w 0d 150 lb 128/82 -?-?-?-?-?-?-?-?-?-?-?-?- 100 -?-?-?-?-?-?-?-?-?-?-?-?- SM- 04/18 irregu alr sac but 2 mm CRL with FHT 100 small subchorionic hemorrhage had small amount bleeding, no clot or filling a pad. 04/19/20 -?-?-?-?-?-?-?-?-?-?-?-?- 6w 1d -?-?-?-?-?-?-?-?-?-?-?-?- -?-?-?-?-?-?-?-?-?-?-?-?- 04/26/20 -?-?-?-?-?-?-?-?-?-?-?-?- 7w 1d 151 lb 8 oz 124/68 -?-?-?-?-?-?-?-?-?-?-?-?- 135 -?-?-?-?-?-?-?-?-?-?-?-?- GP - CRL 10mm wi th heart rate consistent with prior dates. Small HAILEY still present. 05/02/20 -?-?-?-?-?-?-?-?-?-?-?-?- 8w 0d 151 lb 4 oz 112/58 Nega tive -?-?-?-?-?-?-?-?-?-?-?-?- Negative 160 -?-?-?-?-?-?-?-?-?-?-?-?- GP - no cramping or bleeding. Doing well. HAILYE decreased in size but still present. Will see back in 2w to assess if resolved. 05/16/20 -?-?-?-?-?-?-?-?-?-?-?-?- 10w 0d 152 lb 98/58 Negative -?-?-?-?-?-?-?-?-?-?-?-?- Negative 150 -?-?-?-?-?-?-?-?-?-?-?-?- SM- no vb crampi ng doing well 06/14/20 -?-?-?-?-?-?-?-?-?-?-?-?- 14w 1d 154 lb 120/56 Negative -?-?-?-?-?-?-?-?-?-?-?-?- Negative 150 -?-?-?-?-?-?-?-?-?-?-?-?- Sm- no vb crampi ng 07/12/20 -?-?-?-?-?-?-?-?-?-?-?-?- 18w 1d 157 lb 8 oz 130/70 Nega tive -?-?-?-?-?-?-?-?-?-?-?-?- Negative 145 -?-?-?-?-?-?-?-?-?-?-?-?- GP - no cramping or bleeding. +FM. Anatomy scan 07/24. 08/11/20 -?-?-?-?-?-?-?-?-?-?-?-?- 22w 3d 163 lb 8 oz 120/70 Nega tive -?-?-?-?-?-?-?-?-?-?-?-?- Negative 155 -?-?-?-?-?-?-?-?-?-?-?-?- GP - no ctx, LOF , VB, DFM. Anatomy scan normal. 08/21/20 -?-?-?-?-?-?-?-?-?-?-?-?- 23w 6d 167 lb 120/62 -?-?-?-?-?-?--?-?-?-?-?-?- 145 0 -?-?-?-?-?-?-?-?-?-?-?-?- SM seen for smal l vb no regular ctx good fm. cervix closed, likely cervical ectropion 09/06/20 -?-?-?-?-?-?-?-?-?-?-?-?- 26w 1d 172 lb 128/82 Negative -?-?-?-?-?-?-?-?-?-?-?-?- Negative 150 26 0 -?-?-?-?-?-?-?-?-?-?-?-?- GP - no LOF, DFM , ctx. Still having pinkish discharge. No bleeding on exam. Vaginal culture collected. Discussed scheduling RCD at 39w. 09/20/20 -?-?-?-?-?-?-?-?-?-?-?-?- 28w 1d 175 lb 122/58 Negative -?-?-?-?-?-?-?-?-?-?-?-?- Negative 148 28 -?-?-?-?-?-?-?-?-?-?-?-?- MH-No VB, LOF. L arc. Reviewed normal 28 wk labs. CS 12/07 noon with SM. 10/05/20 -?-?-?-?-?-?-?-?-?-?-?-?- 30w 2d 172 lb 104/70 Negative -?-?-?-?-?-?-?-?-?-?-?-?- Negative 145 31 -?-?-?-?-?-?-?-?-?-?-?-?- SM- no vb lof go od fm no regular ctx some nausea 10/18/20 -?-?-?-?-?-?-?-?-?-?-?-?- 32w 1d 174 lb 130/60 Negative -?-?-?-?-?-?-?-?-?-?-?-?- Negative 125 32 -?-?-?-?-?-?-?-?-?-?-?-?- GP - no LOF, VB, DFM, ctx. Less liseth-thacker since treated for BV. 10/31/20 -?-?-?-?-?-?-?-?-?-?-?-?- 34w 0d 175 lb 126/70 -?-?-?-?-?-?-?-?-?-?-?-?- 135 34 0 -?-?-?-?-?-?-?-?-?-?-?-?- SM- had spotting yesterday no lof had ctx, culture sent 11/13/20 -?-?-?-?-?-?-?-?-?-?-?-?- 35w 6d 177 lb 8 oz 130/70 Nega tive -?-?-?-?-?-?-?-?-?-?-?-?- Negative 155 35 -?-?-?-?-?-?-?-?-?-?-?-?- GP - no LOF, VB, DFM, ctx. Denies complaints. 11/22/20 -?-?-?-?-?-?-?-?-?-?-?-?- 37w 1d 176 lb 2 oz 134/74 Nega tive -?-?-?-?-?-?-?-?-?-?-?-?- Negative 130 37 Cephalic 2 -?-?-?-?-?-?-?-?-?-?-?-?- 60 -2 GP - no LO F, VB, DFM, regular ctx. Discussed vs RCD. May be interested in TOLAC if active labor. Membranes swept today. 11/23/20 -?-?-?-?-?-?-?-?-?-?-?-?- 37w 2d 175 lb 7.807 oz 107/ 71 109/57 131/79 118/66 121/60 123/64 127/61 110/59 106/66 114/56 90/53 140/56 113/55 97/52 133/63 116/53 -?-?-?-?-?-?-?-?-?-?-?-?- 2 -?-?-?-?-?-?-?-?-?-?-?-?- 60 -2 Presents i n active labor NST FHR Rate Baby A Baseline: 130 Variability:: Moderate Accelerations:: 15 x 15 Decelerations:: None NST Reactive:: Yes FHR Category:: Category I Uterine Activity:: q2-3min ROS Eyes Eyes: Reports systems reviewed and no addt'l complaints, except as documented ENT HEENT: Reports systems reviewed and no addt'l complaints, except as documented Cardiovascular Cardiovascular: Reports systems reviewed and no addt'l complaints, except as documented Respiratory/Chest Respiratory/Chest: Reports systems reviewed and no addt'l complaints, except as documented Gastrointestinal Gastrointestinal: Reports systems reviewed and no addt'l complaints, except as documented Genitourinary Genitourinary: Reports systems reviewed and no addt'l complaints, except as documented Musculoskeletal Musculoskeletal: Reports systems reviewed and no addt'l complaints, except as documented Integumentary Integumentary: Reports systems reviewed and no addt'l complaints, except as documented Neurologic Neurologic: Reports systems reviewed and no addt'l complaints, except as documented Psychiatric Psychiatric: Reports systems reviewed and no addt'l complaints, except as documented Endocrine Endocrinology: Reports systems reviewed and no addt'l complaints, except as documented Hematologic/Lymphatic Hematologic/Lymphatic: Reports systems reviewed and no addt'l complaints, except as documented Allergic/Immunologic Allergic/Immunologic: Reports systems reviewed and no addt'l complaints, except as documented Vital Signs Vital Signs Vital Signs: 11/23/20 02:53 11/23/20 04:25 11/23/20 04:30 Temperature 98.2 F 96.8 F L Temperature Source Temporal Temporal Pulse Rate 122 H 83 84 Blood Pressure 107/71 109/57 L BP Systolic 107 109 BP Diastolic 71 57 Pulse Ox 98 99 100 11/23/20 04:35 11/23/20 04:36 11/23/20 04:40 Temperature Temperature Source Pulse Rate 103 H 81 81 Blood Pressure 131/79 H 118/66 BP Systolic 131 118 BP Diastolic 79 66 Pulse Ox 99 11/23/20 04:41 11/23/20 04:45 11/23/20 04:46 Temperature Temperature Source Pulse Rate 93 77 87 Blood Pressure 121/60 H BP Systolic 121 BP Diastolic 60 Pulse Ox 100 99 11/23/20 04:50 11/23/20 04:51 11/23/20 04:55 Temperature Temperature Source Pulse Rate 88 89 105 H Blood Pressure 123/64 H 127/61 H 110/59 L BP Systolic 123 127 110 BP Diastolic 64 61 59 Pulse Ox 98 11/23/20 04:56 11/23/20 05:00 11/23/20 05:01 Temperature Temperature Source Pulse Rate 102 H 88 98 Blood Pressure 106/66 BP Systolic 106 BP Diastolic 66 Pulse Ox 100 100 11/23/20 05:03 11/23/20 05:04 11/23/20 05:05 Temperature 98.3 F Temperature Source Temporal Pulse Rate 105 H 80 Blood Pressure 114/56 L BP Systolic 114 BP Diastolic 56 Pulse Ox 90 11/23/20 05:06 11/23/20 05:11 11/23/20 05:15 Temperature Temperature Source Pulse Rate 100 112 H 96 Blood Pressure 90/53 L 140/56 H BP Systolic 90 140 BP Diastolic 53 56 Pulse Ox 100 98 11/23/20 05:16 11/23/20 05:21 11/23/20 05:25 Temperature Temperature Source Pulse Rate 106 H 111 H 116 H Blood Pressure 113/55 L BP Systolic 113 BP Diastolic 55 Pulse Ox 80 97 11/23/20 05:26 11/23/20 05:30 11/23/20 05:37 Temperature Temperature Source Pulse Rate 102 H 90 94 Blood Pressure 97/52 L BP Systolic 97 BP Diastolic 52 Pulse Ox 99 11/23/20 05:38 11/23/20 05:42 11/23/20 06:05 Temperature 99.1 F Temperature Source Temporal Pulse Rate 93 110 H 100 Blood Pressure 133/63 H BP Systolic 133 BP Diastolic 63 Pulse Ox 90 98 99 11/23/20 06:34 Temperature Temperature Source Pulse Rate 97 Blood Pressure 116/53 L BP Systolic 116 BP Diastolic 53 Pulse Ox 96 Weight Weight: 175 lb 7.807 oz Body Mass Index (BMI) 27.4 Physical Exam Const alert, oriented x3, no apparent distress, average body habitus, healthy appearing and well nourished HEENT normocephalic and moist oral mucous membranes Head and Scalp: atraumatic Eyes PERRL and EOMs intact bilaterally Neck full ROM Resp normal respiratory effort, no retractions and no use of accessory muscles Cardio regular rate and regular rhythm GI soft to palpation, non-tender and non-distended Extremity normal to inspection and full ROM Skin no rashes or lesions noted Neuro no focal motor deficits and no sensory deficits noted Psych mental status grossly normal, affect normal, speech normal and activity/motor behavior normal Labs Labs Labs: Blood Type A POSITIVE Antibody Screen NEGATIVE Hct 38.5 % (37-47) Hgb 12.7 g/dL (12.0-15.0) Pap Smear Negative Obstetrics US Rubella IgG Antibody Reactive (Nonreactive) Hep Bs Antigen Non-Reactive (Nonreactive) Neisseria gonorrhoeae DNA (LIVIER) Negative (Negative) HIV 1&2 Antibody Non-Reactive (Nonreactive) C.trachomatis DNA (PCR) Negative (Negative) Glucose 1 Hr 50 gm 114 mg/dL (70-140) Rhogam given: No Assessment & Plan (1) , delivered: PLAN: Patient presents IAL, plan expectant management for , pitocin/AROM PRN if needed. Pain management: plans epidural. GBS positive plan IV PCN. Management of any complications: none I have reviewed the [facility] and made any clinically relevant updates. (2) H/O section: COMMENT: AoD, CPD, sched. DANIEL 12/07 @ 12 (3) Supervision of other normal : COMMENT: PRR TONI 12/12/20 Boy PC: Val Spouse: Christian (4) : QUALIFIERS: Weeks of gestation: 37 weeks Qualified Code(s): Z3A.37 - 37 weeks gestation of COMMENT: Declines carrier, genetic and NTD. anatomy US nl (5) Vaginal bleeding during : COMMENT: seen / rh pos. likely ectropion reviewed bleeding preacutions (6) Positive GBS test: COMMENT: on vaginal culture- 09/06. PCN in labor
--- NOTE | 2020-11-23 06:48 | EX.PCM.OBRPT ---
Assessment & Plan (1) , delivered: (2) H/O section: COMMENT: AoD, CPD, sched. DANIEL 12/07 @ 12 (3) Supervision of other normal : COMMENT: PRR TONI 12/12/20 Boy PC: Val Spouse: Christian (4) : QUALIFIERS: Weeks of gestation: 37 weeks Qualified Code(s): Z3A.37 - 37 weeks gestation of COMMENT: Declines carrier, genetic and NTD. anatomy US nl (5) Vaginal bleeding during : COMMENT: seen 08/21 rh pos. likely ectropion reviewed bleeding preacutions (6) Positive GBS test: COMMENT: on vaginal culture- 09/06. PCN in labor Maternal Data Information TONI Calculator Estimated Delivery Date Method Current WG Current Estimate 12/12/20 LMP (Certain) 37w 2d Vaginal Delivery Maternal Presentation Maternal Presentation: Active Labor Maternal Presentation: 30-year-old with a history of a prior presents in active labor. Patient made rapid cervical change to complete dilation without augmentation. Operative Information Date of Procedure: 11/23/20 Pre-Operative Diagnosis: Term , active labor, TOLAC Post-Operative Diagnosis: Same Surgery / Procedure Performed: Spontaneous Vaginal Delivery Type of Anesthesia: Epidural Drain: Smith to straight drain Estimated Blood Loss: 250 Findings Description of Procedure: Patient began pushing and delivered the head in the BRODERICK presentation. The head was delivered atraumatically and a loose nuchal cord ?1 was identified and easily reduced over the 's head. The anterior and posterior shoulders delivered without complication followed by the rest of the infant and the infant was placed on the maternal abdomen. Delayed cord clamping was employed for approximately 60 seconds. Cord was clamped and cut and gentle traction was applied to the cord and the placenta delivered spontaneously immediately following it was noted to be intact with three-vessel cord. The perineum and vagina were inspected and a right labial laceration was noted and repaired in the standard fashion using 3-0 Vicryl Rapide suture. Patient did have uterine atony requiring bimanual uterine massage and Methergine. EBL was 250 cc. Patient and tolerated delivery well. Presentation: Vertex and BRODERICK Amniotic Membrane Rupture Type: Spontaneous Amniotic Fluid Description: Clear Placental Delivery Description: Spontaneous Placenta Disposition: [facility] Cord Vessel Description: 3 Vessels Cord Entanglement: Around neck x 1, loose A Gender: Male (1 minute): 9 (5 minute): 9 Delayed Cord Clamping: Yes Post Vaginal Delivery Medications Given After Delivery: IV Pitocin and IM Methergin Episiotomy Description: None Laceration: Vaginal Extension/lac (Labial) Complication Complications: None Procedures Urinary/Genital [id number]: [id number] delivery [facility]
--- NOTE | 2020-11-23 06:51 | PCM.DC ---
Discharge Instructions Diet Discharge Diet: No restrictions Activity Discharge Activity: Return to Normal Activity, May Not Drive (while taking narcotic pain medications.) and May Shower May resume sexual activity in: 4-6 weeks Dressing / Incision Call your doctor if your incision/area has: Continuous Slow Oozing, Sudden Increased Bleeding, Increased Pain/ Swelling, Increased Redness and Foul Smelling Discharge Follow Up Care When: Call to make an appointment with your doctor in 6 weeks. If you had elevated Blood Pressure or 4th degree laceration you will need to be seen in 2 weeks. Test Results: Test results from this visit will be discussed in further detail at your follow-up appointment, if applicable. Discharge Plan Admission Admit Date/Time: 11/23/20 03:05 Primary Reason for Your Visit: Active labor Attending Provider: Sofy Toledo Primary Care Provider: Mitul PhysicianDinah Primary Instructions Patient Instructions: After a Vaginal Discharge Orders/Prescriptions Prescriptions: New naproxen 250 MG tablet 250 - 500 mg PO Q8H PRN PRN (Reason: MILD PAIN) Qty: 30 RF: 1 Continued (DME) breast pump Device See Rx Instructions .ROUTE .MEDSUPPLY Qty: 1 RF: 0 vit no.[id number] 1 EACH tablet 1 ea PO DAILY RF: 0 Referrals / Follow Up: Care Physician,No Primary [Primary Care Provider] -
[2020-11-23] MEDS: 0.9% Saline Lock 10 ML Syringe IV (09:03)
[2020-11-23] MEDS: Naproxen 500 MG Tablet PO (22:06)
[2020-11-24 00:25] VITALS: BP 115/64; PULSE 70; RESP 16; TEMP 36
[2020-11-24 03:30] VITALS: BP 122/68; PULSE 81; RESP 16; TEMP 36.3
[2020-11-24 07:00] VITALS: BP 109/60; PULSE 69; RESP 16; TEMP 36.4
--- NOTE | 2020-11-24 07:27 | PN.OBGYN_ITS ---
Subjective Subjective Patient doing well without complaints. Tolerating PO. Ambulating and voiding without difficulty. Feeding well. Denies chest pain, shortness of breath, calf pain/swelling, fevers, chills, lightheadedness. Objective Data Objective Data Vital Signs: Vital Signs Temp Pulse Resp BP Pulse Ox 97.4 F L 81 16 122/68 H 92 11/24/20 03:30 11/24/20 03:30 11/24/20 03:30 11/24/20 03:30 11/23/20 07:51 Oxygen Delivery Method Room Air Weight: 175 lb 7.807 oz Body Mass Index (BMI) 27.4 Intake & Output: Intake and Output for Last 24 Hours 11/22/20 11/23/20 11/24/20 23:59 23:59 23:59 Intake Total 2138.33 / 2138.33 Output Total 2250 / 2250 Balance -111.67 / -111.67 Lab / Micro Data Result Diagrams: 11/23/20 03:40 Micro: Microbiology 11/23/20 03:40 Mucosa - Nasopharyngeal SARS-CoV-2 Antigen (Rapid) - Final ROS Eyes Eyes: Reports systems reviewed and no addt'l complaints, except as documented ENT HEENT: Reports systems reviewed and no addt'l complaints, except as documented Cardiovascular Cardiovascular: Reports systems reviewed and no addt'l complaints, except as documented Respiratory/Chest Respiratory/Chest: Reports systems reviewed and no addt'l complaints, except as documented Gastrointestinal Gastrointestinal: Reports systems reviewed and no addt'l complaints, except as documented Genitourinary Genitourinary: Reports systems reviewed and no addt'l complaints, except as documented Musculoskeletal Musculoskeletal: Reports systems reviewed and no addt'l complaints, except as documented Integumentary Integumentary: Reports systems reviewed and no addt'l complaints, except as documented Neurologic Neurologic: Reports systems reviewed and no addt'l complaints, except as documented Psychiatric Psychiatric: Reports systems reviewed and no addt'l complaints, except as documented Endocrine Endocrinology: Reports systems reviewed and no addt'l complaints, except as documented Hematologic/Lymphatic Hematologic/Lymphatic: Reports systems reviewed and no addt'l complaints, except as documented Allergic/Immunologic Allergic/Immunologic: Reports systems reviewed and no addt'l complaints, except as documented Physical Exam Const alert, oriented x3, no apparent distress, average body habitus, healthy appear ing and well nourished HEENT normocephalic Head and Scalp: atraumatic Eyes PERRL and EOMs intact bilaterally Neck full ROM Lymph Lymphatic: no lymphadenopathy noted Resp normal respiratory effort, no retractions and no use of accessory muscles Cardio regular rate GI soft to palpation, non-tender and non-distended Palpation: other Other Details: fundus firm Extremity normal to inspection and no clubbing, cyanosis or edema Skin no rashes or lesions noted Neuro no focal motor deficits and no sensory deficits noted Psych mental status grossly normal, affect normal and speech normal Assessment & Plan (1) , delivered: PLAN: s/p PPD # 1 1. routine post delivery care 2. breast feeding- support given 3. rh positive 4. rubella immune
[2020-11-24 07:45] VITALS: BP 114/64; PULSE 71; RESP 16; TEMP 36.6; O2SAT 97
[2020-11-24 14:00] VITALS: BP 119/63; PULSE 77; RESP 16; TEMP 36.1
[2020-11-24] MEDS: Naproxen 500 MG Tablet PO (14:33)
[2020-11-24 17:45] VITALS: BP 130/75; PULSE 75; RESP 18; TEMP 36.4; O2SAT 100
== END 2020-11-24 18:06 | disposition home or self-care (01) | DRG 807 ==
LOC: WPOUT 03:06 → WP 03:06
PROVIDERS: Admitting Provider Obstetrics & Gynecology; Visit Provider Obstetrics & Gynecology
DX: O70.0 First degree perineal laceration during delivery (principal); Z37.0 Single live birth; O62.2 Other uterine inertia; O34.219 Maternal care for unspecified type scar from previous cesarean delivery; O69.81X0 Labor and delivery complicated by cord around neck, without compression, not applicable or unspecified; Z3A.37 37 weeks gestation of pregnancy; Z82.49 Family history of ischemic heart disease and other diseases of the circulatory system
CPT/HCPCS: 59025; 59050; 84112; 85025; 86850; 86900; 86901; 87426; 99218; J7120; A4216; G0378

== ENCOUNTER → 2022-01-10 | Outpatient (CLI) | payer OTHER, SELFPAY ==
[2022-01-17 12:45] LABS: HPV APTIMA, High Risk Negative (Negative)
[2022-01-17 15:51] LABS: HPV Reflexed? YES, CHARGE PATIENT
== END | disposition home or self-care (01) ==
LOC: LABSPEC 01-11 08:57
PROVIDERS: Visit Provider Obstetrics & Gynecology
DX: Z12.4 Encounter for screening for malignant neoplasm of cervix (principal)
CPT/HCPCS: 87624; 88175; G0145

== ENCOUNTER → 2022-10-01 | Outpatient (CLI) | payer OTHER, SELFPAY ==
[2022-10-01 11:05] LABS: Absolute Lymphocyte Count 1.45 X10^3/uL (0.83-4.51); Absolute Neutrophil Count 3.9 X10^3/uL (2.0-7.7); Basophil# 0.03 X10^3/uL; Basophil% 0.5 % (0-1); Eosinophil# 0.04 X10^3/uL; Eosinophils% 0.7 % (0-5); Hemoglobin 13.7 g/dL (12.0-15.0); Lymphocyte # 1.45 X10^3/ul (0.83-4.51); Lymphocyte % 24.7 % (19-41); Mean Corp Hgb Conc 33.4 g/dL (32-36); Mean Corpuscular Volume 95.8 fL (81-99); Mean Platelet Vol. 10.3 fl (6.2-12.0); Monocyte# 0.38 X10^3/uL; Monocyte% 6.5 % (0-10); NRBC Flagged by Analyzer 0 % (0-5); Neutrophil # 3.94 X10^3/uL (2.7-7.7); Neutrophil % 67.3 % (47-70); POSITIVE MORPHOLOGY YES; Platelet Count 207 K/mm3 (150-450); RBC Distribution Width CV 12.4 % (11.6-14.6); RBC Distribution Width SD 43.1 fl (35.1-43.9); Red Blood Count 4.28 M/mm3 (4.2-5.4); White Blood Count 5.9 K/mm3 (4.4-11.0)
[2022-10-01 11:28] LABS: Differential Comment SCANNED; Differential Indicated SCAN CRITERIA MET
[2022-10-01 12:10] LABS: HIV - WCH Non-Reactive (Nonreactive); Hepatitis B Surface Antigen Non-Reactive (Nonreactive); Hepatitis C Antibody Non-Reactive (Nonreactive); Rubella IgG Reactive (Nonreactive); Syphilis Antibodies Non-reactive
[2022-10-04 07:08] LABS: Chlamydia By Nucleic Acid AMP Negative (Negative)
[2022-10-04 10:47] LABS: Gonococcus By Nucleic Acid AMP Negative (Negative)
== END | disposition home or self-care (01) ==
PROVIDERS: Referring Provider Obstetrics & Gynecology; Visit Provider Obstetrics & Gynecology
DX: Z34.80 Encounter for supervision of other normal pregnancy, unspecified trimester (principal)
CPT/HCPCS: 36415; 85025; 86703; 86762; 86780; 86803; 86850; 86900; 86901; 87086; 87088; 87340; 87491; 87591

== ENCOUNTER → 2022-11-27 | Outpatient (CLI) | payer OTHER, SELFPAY | END | disposition home or self-care (01) | LOC: LABSPEC 13:26 | PROVIDERS: PCP Internal Medicine; Referring Provider Obstetrics & Gynecology; Visit Provider Obstetrics & Gynecology | DX: O26.899 Other specified pregnancy related conditions, unspecified trimester (principal); N89.8 Other specified noninflammatory disorders of vagina; Z3A.00 Weeks of gestation of pregnancy not specified | CPT/HCPCS: 87070; 87077; 87186; 87205 ==

== ENCOUNTER → 2022-12-16 | Outpatient (CLI) | payer OTHER, SELFPAY ==
--- NOTE | 2022-12-16 12:51 | US_ITS ---
STUDY: SECOND AND THIRD TRIMESTER OBSTETRICAL ULTRASOUND REASON FOR EXAM: Female, 32 years old anatomy LMP: August 05, 2022. TECHNIQUE: Transabdominal and Transvaginal TECHNICAL QUALITY: Adequate. PRIOR ULTRASOUND: None. FINDINGS: There is a single intrauterine fetus. The fetus is in a cephalic presentation. There is demonstrated cardiac activity with a heart rate of 156 bpm. There is a normal amniotic fluid volume. The largest amniotic fluid pocket measures 3.8 cm x 4 cm. The amniotic fluid index (KATERINA) is within normal limits. The placenta is anterior in location and is not low lying. Umbilical cord insertion is at 2.3 cm from the placental edge. There are Grade 0 placental changes. The cervix measures 5.5 cm in length. The adnexal regions are not visualized. BIOMETRY: BPD: 4.49 cm: 19 weeks, 4 days HC: 17.2 cm: 19 weeks, 5 days AC: 13.89 cm: 19 weeks, 2 days FL: 2.84 cm: 18 weeks, 5 days CI: 77.8% FL/BPD: 63.2% FL/HC: FL/AC: 20.4% HC/AC: 1.24 age by current US: 19 weeks, 2 days. TOIN by current US: May 10, 2023. Estimated weight: 274 grams, +/- 41 grams, 51 %. Age by LMP: 19 weeks, 0 days. TONI by LMP: May 12, 2023. ANATOMY: Gender: Male Cranium: Normal lateral ventricles. Normal choroid plexus. Normal cerebellum. Normal cisterna magna. Normal face, nose and lips. Chest: Normal 4-chamber heart. Abdomen/Pelvis: Normal diaphragm. Normal stomach. Normal abdominal wall. Normal cord insertion. Normal 3 vessel cord. Normal kidneys. Normal bladder. Spine: Normal cervical spine. Normal thoracic spine. Normal lumbar spine. Normal sacrum. Extremities: Normal bilateral upper extremities. Normal bilateral lower extremities. IMPRESSION: Single live uterine gestation with a mean gestational age of 19 weeks and 2 days. The umbilical cord insertion is at 2.3 cm from the placental edge. Electronically Signed: Antoine Cherry MD at 13:58 EDT , STUDY: FIRST TRIMESTER OBSTETRICAL ULTRASOUND REASON FOR EXAM: Female, 32 years old. Cervical length measurement. LMP: August 05, 2022. TECHNIQUE: Transvaginal TECHNICAL QUALITY: Adequate. PRIOR ULTRASOUND: None. FINDINGS: Cervical length measures 5.5 cm. US/OB Anatomy Scan IMPRESSION: Cervical length measures 5.5 cm. Electronically Signed: Antoine Cherry MD at 13:59 EDT ,
--- NOTE | 2022-12-16 12:51 | US_ITS ---
STUDY: SECOND AND THIRD TRIMESTER OBSTETRICAL ULTRASOUND REASON FOR EXAM: Female, 32 years old anatomy LMP: August 05, 2022. TECHNIQUE: Transabdominal and Transvaginal TECHNICAL QUALITY: Adequate. PRIOR ULTRASOUND: None. FINDINGS: There is a single intrauterine fetus. The fetus is in a cephalic presentation. There is demonstrated cardiac activity with a heart rate of 156 bpm. There is a normal amniotic fluid volume. The largest amniotic fluid pocket measures 3.8 cm x 4 cm. The amniotic fluid index (KATERINA) is within normal limits. The placenta is anterior in location and is not low lying. Umbilical cord insertion is at 2.3 cm from the placental edge. There are Grade 0 placental changes. The cervix measures 5.5 cm in length. The adnexal regions are not visualized. BIOMETRY: BPD: 4.49 cm: 19 weeks, 4 days HC: 17.2 cm: 19 weeks, 5 days AC: 13.89 cm: 19 weeks, 2 days FL: 2.84 cm: 18 weeks, 5 days CI: 77.8% FL/BPD: 63.2% FL/HC: FL/AC: 20.4% HC/AC: 1.24 age by current US: 19 weeks, 2 days. TONI by current US: May 10, 2023. Estimated weight: 274 grams, +/- 41 grams, 51 %. Age by LMP: 19 weeks, 0 days. TONI by LMP: May 12, 2023. ANATOMY: Gender: Male Cranium: Normal lateral ventricles. Normal choroid plexus. Normal cerebellum. Normal cisterna magna. Normal face, nose and lips. Chest: Normal 4-chamber heart. Abdomen/Pelvis: Normal diaphragm. Normal stomach. Normal abdominal wall. Normal cord insertion. Normal 3 vessel cord. Normal kidneys. Normal bladder. Spine: Normal cervical spine. Normal thoracic spine. Normal lumbar spine. Normal sacrum. Extremities: Normal bilateral upper extremities. Normal bilateral lower extremities. IMPRESSION: Single live uterine gestation with a mean gestational age of 19 weeks and 2 days. The umbilical cord insertion is at 2.3 cm from the placental edge. Electronically Signed: Antoine Cherry MD at 13:58 EDT , STUDY: FIRST TRIMESTER OBSTETRICAL ULTRASOUND REASON FOR EXAM: Female, 32 years old. Cervical length measurement. LMP: August 05, 2022. TECHNIQUE: Transvaginal TECHNICAL QUALITY: Adequate. PRIOR ULTRASOUND: None. FINDINGS: Cervical length measures 5.5 cm. US/Transvaginal w/Preg US IMPRESSION: Cervical length measures 5.5 cm. Electronically Signed: Antoine Cherry MD at 13:59 EDT ,
== END | disposition home or self-care (01) ==
PROVIDERS: PCP Internal Medicine; Referring Provider Obstetrics & Gynecology; Visit Provider Obstetrics & Gynecology
DX: Z34.80 Encounter for supervision of other normal pregnancy, unspecified trimester (principal)
CPT/HCPCS: 76805; 76817

== ENCOUNTER → 2023-02-19 | Outpatient (CLI) | payer OTHER, SELFPAY ==
[2023-02-19 13:16] LABS: Absolute Lymphocyte Count 1.43 X10^3/uL (0.83-4.51); Absolute Neutrophil Count 5.5 X10^3/uL (2.0-7.7); Basophil# 0.02 X10^3/uL; Basophil% 0.3 % (0-1); Eosinophil# 0.06 X10^3/uL; Eosinophils% 0.8 % (0-5); Hematocrit 41.4 % (37-47); Hemoglobin 13.5 g/dL (12.0-15.0); Lymphocyte # 1.43 X10^3/ul (0.83-4.51); Lymphocyte % 19.2 % (19-41); Mean Corp Hgb Conc 32.6 g/dL (32-36); Mean Corpuscular Hgb 32.5 pg (27.0-32.0); Mean Corpuscular Volume 99.5 fL (81-99); Mean Platelet Vol. 9.9 fl (6.2-12.0); Monocyte# 0.41 X10^3/uL; Monocyte% 5.5 % (0-10); NRBC Flagged by Analyzer 0 % (0-5); Neutrophil % 73.8 % (47-70); Platelet Count 191 K/mm3 (150-450); RBC Distribution Width CV 12.8 % (11.6-14.6); RBC Distribution Width SD 46.9 fl (35.1-43.9); Red Blood Count 4.16 M/mm3 (4.2-5.4); White Blood Count 7.5 K/mm3 (4.4-11.0)
[2023-02-19 13:41] LABS: Glucose Challenge Gest 1H 50g 75 mg/dL (70-140)
[2023-02-19 14:13] LABS: HIV - WCH Non-Reactive (Nonreactive); Syphilis Antibodies Non-reactive
== END | disposition home or self-care (01) ==
PROVIDERS: PCP Internal Medicine; Referring Provider Obstetrics & Gynecology; Visit Provider Obstetrics & Gynecology
DX: Z34.80 Encounter for supervision of other normal pregnancy, unspecified trimester (principal)
CPT/HCPCS: 36415; 82950; 85025; 86703; 86780

== ENCOUNTER → 2023-04-15 | Outpatient (CLI) | payer OTHER, SELFPAY ==
--- NOTE | 2023-04-15 10:51 | US_ITS ---
STUDY: SECOND AND THIRD TRIMESTER OBSTETRICAL ULTRASOUND - LIMITED REASON FOR EXAM: Female, 32 years old routine survey LMP: 08/05/2022 PRIOR ULTRASOUND: 12/16/2022 TECHNIQUE: Transabdominal TECHNICAL QUALITY: Adequate. FINDINGS: There is a single intrauterine fetus. The fetus is in a cephalic presentation. There is demonstrated cardiac activity with a heart rate of 143 bpm. There is a normal amniotic fluid volume. The largest amniotic fluid pocket measures 5.67 cm. The amniotic fluid index (KATERINA) is 18.81 cm. The placenta is anterior in location and is not low lying. There are Grade 1 placental changes. The cervix was not measured BIOMETRY: BPD: 8.98 cm: 36 weeks, 2 days HC: 32.35 cm: 36 weeks, 1 days AC: 31.22 cm: 35 weeks, 1 days FL: 7.05 cm: 36 weeks, 1 days Age by LMP: 36 weeks, 1 days. TONI by LMP: 05/12/2023. age by prior US: 19 weeks, 2 days. TONI by prior US: 05/10/2023. age by current US: 36 weeks, 0 days. TONI by current US: 05/13/2023. Estimated weight: 2763 grams, +/- 414 grams, 42 percentile. US/OB Limited With Biometrics IMPRESSION: Single live intrauterine at 36 weeks, 0 days by current ultrasound with TONI of 05/13/2023. Heart rate 143 bpm. No suspicious sonographic findings, normal growth noted since the previous study. Electronically Signed: David Camp MD at 15:34 EDT ,
[2023-04-15 18:33] LABS: Group B Strep DNA By PCR Negative (Negative); Internal Control PASS; Probe Check PASS; Specimen Processing Control PASS
== END | disposition home or self-care (01) ==
PROVIDERS: Advanced Practice Midwife; PCP Internal Medicine; Referring Provider Registered Nurse; Visit Provider Registered Nurse
DX: Z34.90 Encounter for supervision of normal pregnancy, unspecified, unspecified trimester (principal); Z3A.31 31 weeks gestation of pregnancy
CPT/HCPCS: 76816; 87081; 87653

== ENCOUNTER 2023-04-25 03:13 | Inpatient (IN) | payer OTHER, SELFPAY ==
[2023-04-25] VITALS (51 sets, daily range): BP systolic 81–136; BP diastolic 45–83; PULSE 57–124; RESP 16; TEMP 36.4–37.3; O2SAT 90–100; BMI 27.5
[2023-04-25] MEDS: Lactated Ringers 1,000 ML 50 ML IV (03:25)
[2023-04-25 03:31] LABS: ROM Internal Control Test YES-OK TO RESULT pt. (Internal QC); ROM Patient Test POSITIVE (Negative); Record Kit Lot#, ROM+ K1409
[2023-04-25] MEDS: LACTATED RINGERS 500 ML 999 ML IV ×2 (03:32→05:58)
[2023-04-25 03:40] LABS: Absolute Lymphocyte Count 2.05 X10^3/uL (0.83-4.51); Absolute Neutrophil Count 7.3 X10^3/uL (2.0-7.7); Basophil# 0.03 X10^3/uL; Basophil% 0.3 % (0-1); Eosinophil# 0.06 X10^3/uL; Eosinophils% 0.6 % (0-5); Hematocrit 41.2 % (37-47); Hemoglobin 13.2 g/dL (12.0-15.0); Lymphocyte # 2.05 X10^3/ul (0.83-4.51); Mean Corpuscular Hgb 31.2 pg (27.0-32.0); Mean Corpuscular Volume 97.4 fL (81-99); Mean Platelet Vol. 10.5 fl (6.2-12.0); Monocyte# 0.76 X10^3/uL; Monocyte% 7.4 % (0-10); NRBC Flagged by Analyzer 0 % (0-5); Neutrophil # 7.29 X10^3/uL (2.7-7.7); Neutrophil % 71.3 % (47-70); Platelet Count 168 K/mm3 (150-450); RBC Distribution Width CV 12.7 % (11.6-14.6); RBC Distribution Width SD 45.3 fl (35.1-43.9); Red Blood Count 4.23 M/mm3 (4.2-5.4); White Blood Count 10.2 K/mm3 (4.4-11.0)
[2023-04-25] MEDS: fentaNYL-bupivacaine (epidural) 100 ML BAG EPIDURAL (04:29)
[2023-04-25 04:50] LABS: Syphilis Antibodies Non-reactive
--- NOTE | 2023-04-25 06:19 | HP.PCM.OB_ITS ---
HPI - General General Date of Admission: 04/25/23 HPI Narrative ROCKY SILVA, is a 32 F who presents IAL desires TOLAC regular ctx positive ROM 130am Maternal Data Information TONI Calculator Estimated Delivery Date Method Current WG Current Estimate 05/12/23 Ultrasound #1 37w 4d Other Estimates 05/05/23 LMP (Certain) 38w 4d PFSH PFSH Medical History (Updated 04/25/23 @ 06:[address] Emily Gore MD) , delivered Home Medications vits no.130-ferrous fum 27 mg iron-folic acid 800 mcg tablet 1 ea PO DAILY 07/28/18 [History Last Taken 11/22/20 08:00] vitamin B complex-folic acid 1 mg-vit C 200 mg-biotin 300 mcg tablet tab PO 01/10/22 [History Last Taken Unknown] doxylamine 10 mg-pyridoxine (vit B6) 10 mg tablet,delayed release (Diclegis) 1 tab PO .QID PRN nausea 30 days #60 tabs 10/31/22 [Rx Last Taken Unknown] ondansetron HCl 4 mg tablet 4 mg PO Q6H PRN nausea and vomiting #30 tabs 10/31/22 [Rx Last Taken Unknown] Allergy/AdvReac Type Severity Reaction Status Date / Time No Known Allergies Allergy Verified 04/25/23 03:24 Family History Grandfather Heart disease Myocardial infarction Surgical History (Updated 04/25/23 @ 03:35 by Erika Flores) H/O section [place] teeth removed Social History number of children: 1 current occupational status: employed Smoking Status: Never smoker alcohol intake: never substance use type: does not use caffeine: Yes what type of physical activity do you participate in: walking seatbelt use: always do you feel safe at home: Yes additional social history: Patient works for [employer] at [facility] [employer] History 2 Elective abortions Hx Para 2 Spontaneous abortions Hx # Term Pregnancies Ectopic pregnancies Hx # Pregnancies Multiple births # of living children 2 Past Pregnancies Del. Date Name GA/Weeks Outcome Route Bth Weight Gen Labor Lgth Anesthesia Del Locatn Provider FOB 07/28/18 Val 41 live - full term 8lbs Female e pidural [facility] DANIEL 11/23/20 [place] 37 live - full term Male [facility] Tre Delivery Date: 07/28/18 Last Updated by: Amberly Null CPD; AoD Delivery Date: 11/23/20 Last Updated by: Crista Holland admitted in active labor and had successful Visit Details Expected Delivery Route/Plan patient counseled regarding risks/benefits of trial of labor versus repeat . ACOG/uptodate education given to patient. [] % likelihood of success per calculator TOLAC consent form signed: [] Plans Covid status: [] Flu vaccine: [] Tdap vaccine: given 02/19/23 Rhogam: NA LARC form signed: yes Problem list reviewed and updated with the most current plan of care details and appropriate orders placed. Relevant counseling for the gestational age provided. Continue routine care and follow up unless otherwise noted in visit notes/problem list details OB Flowsheet Initial Weight: 145 lb Date -?-?-?-?-?-?-?-?-?-?-?-?- EGA Weight BP Urine Prot -?-?-?-?-?-?-?-?-?-?-?-?- Glucose FHR FuHt Pres Dilation -?-?-?-?-?-?-?-?-?-?-?-?- Effaced St Visit Note 10/01/22 -?-?-?-?-?-?-?-?-?-?-?-?- 8w 1d 145 lb 2 oz (+2 oz) 122/74 -?-?-?-?-?-?-?-?-?-?-?-?- 160 -?-?-?-?-?-?-?-?-?-?-?-?- SM- CRL 1.5 cm N OT cons with LMP 10/31/22 -?-?-?-?-?-?-?-?-?-?-?--?- 12w 3d 147 lb 6 oz (+2 lb 6 oz) 113/73 Negative -?-?-?-?-?-?-?-?-?-?-?-?- Negative 160 -?-?-?-?-?-?-?-?-?-?-?-?- JV- still very n auseated. ordered diclegis and if not covered, ordered zofran. pt is having a hard time finding the 10 mg vit b6. No lof, vaginal bleeding, or cramping. 11/26/22 -?-?-?-?-?-?-?-?-?-?-?-?- 16w 1d 157 lb 4 oz (+12 lb 4 oz) 134/68 Negative -?-?-?-?-?-?-?-?-?-?-?-?- Negative 150 -?-?-?-?-?-?--?-?-?-?-?-?- KW- possible flu tters. no vb/cramping. discussed AFP. US scheduled. 11/27/22 -?-?-?-?-?-?-?-?-?-?-?-?- 16w 2d 156 lb (+11 lb) 122/69 Negative -?-?-?-?-?-?-?-?-?-?-?-?- Negative 0 -?-?-?-?-?-?-?-?-?-?-?-?- JV- pt here toda y for vaginitis check. She had some mucous discharge and some cramping. 12/27/22 -?-?-?-?-?-?-?-?-?-?-?-?- 20w 4d 162 lb 6 oz (+17 lb 6 oz) 128/78 Negative -?-?-?-?-?-?-?-?-?-?-?-?- Negative 140 -?-?-?-?-?-?-?-?-?-?-?-?- JV- no complaint s today. anatomy scan reviewed. is having a boy! 01/24/23 -?-?-?-?-?-?-?-?-?-?-?-?- 24w 4d 166 lb 6 oz (+21 lb 6 oz) 122/69 Trace -?-?-?-?-?-?-?-?-?-?-?-?- Negative 145 26 -?-?-?-?-?-?-?-?-?-?-?-?- SM- no vb lof go od fm no regular ctx 02/19/23 -?-?-?-?-?-?-?-?-?-?-?-?- 28w 2d 168 lb 6 oz (+23 lb 6 oz) 124/68 Negative -?-?-?-?-?-?-?-?-?-?-?-?- Negative 146 28 -?-?-?-?-?-?-?-?-?-?-?-?- -No VB, LOF. G ood FM. 28 wk labs. tdap. [facility] 03/03/23 -?-?-?-?-?-?-?-?-?-?-?-?- 30w 0d 169 lb 6 oz (+24 lb 6 oz) 113/63 Trace -?-?-?-?-?-?-?-?-?-?-?-?- Negative 138 30 -?-?-?-?-?-?-?-?-?-?-?-?- LC- no vb/ctx/lo f. good fm. no concerns. reviewed growth scan at 36 weeks for EFW. consulted with for timing of delivery, agrees should be by 39 weeks. goal for TOLAC and will hold on c/s schedule 03/17/23 -?-?-?-?-?-?-?-?-?-?-?-?- 32w 0d 172 lb (+27 lb) 118/60 Negative -?-?-?-?-?-?-?-?-?-?-?-?- Negative 140 32 -?-?-?-?-?-?-?-?-?-?-?-?- SM- no vb lof go od fm no regular ctx 03/31/23 -?-?-?-?-?-?-?-?-?-?-?-?- 34w 0d 172 lb 2 oz (+27 lb 2 oz) 120/74 Negative -?-?-?-?-?-?-?-?-?-?-?-?- Negative 140 34 0 -?-?-?-?-?-?-?-?-?-?-?-?- lc- no lof/ctx/v b. good fm. felt baby drop, feeling more liseth thacker. 04/15/23 -?-?-?-?-?-?-?-?-?-?-?-?- 36w 1d 176 lb (+31 lb) 107/67 Negative -?-?-?-?-?-?-?-?-?-?-?-?- Negative 150 36 4 -?-?-?-?-?-?-?-?-?-?-?--?- 60 -2 KW-good fm . no lof/vb/ctx. GBS today. feeling more vaginal pressure. GBS today. 04/24/23 -?-?-?-?-?-?-?-?-?-?-?-?- 37w 3d 176 lb (+31 lb) 117/75 Negative -?-?-?-?-?-?-?-?-?-?-?-?- Negative 150 37 4 -?-?-?-?-?-?-?-?-?-?-?-?- 80 -1 SM- no vb lof good fm no regular ctx membranes swept NST FHR Rate Baby A Baseline: 140 Variability:: Moderate Accelerations:: 15 x 15 Decelerations:: None NST Reactive:: Yes FHR Category:: Category I Uterine Activity:: q3-5 ROS Constitutional Constitutional: Reports systems reviewed and no addt'l complaints, except as documented ENT HEENT: Reports systems reviewed and no addt'l complaints, except as documented Cardiovascular Cardiovascular: Reports systems reviewed and no addt'l complaints, except as documented Respiratory/Chest Respiratory/Chest: Reports systems reviewed and no addt'l complaints, except as documented Gastrointestinal Gastrointestinal: Reports systems reviewed and no addt'l complaints, except as documented and nausea; Denies abdominal pain Genitourinary Genitourinary: Reports systems reviewed and no addt'l complaints, except as documented, contractions Details: present and frequency (regular ) and movement Details: present Musculoskeletal Musculoskeletal: Reports systems reviewed and no addt'l complaints, except as documented Integumentary Integumentary: Reports as per HPI Neurologic Neurologic: Reports systems reviewed and no addt'l complaints, except as documented Endocrine Endocrinology: Reports systems reviewed and no addt'l complaints, except as documented Vital Signs Vital Signs Vital Signs: 04/25/23 03:10 04/25/23 03:10 04/25/23 03:10 Temperature Temperature Source Pulse Rate 124 H Blood Pressure 132/80 H BP Systolic 132 BP Diastolic 80 Pulse Ox 99 04/25/23 03:11 04/25/23 03:11 04/25/23 03:57 Temperature 98.3 F Temperature Source Temporal Pulse Rate 86 Blood Pressure BP Systolic BP Diastolic Pulse Ox 04/25/23 03:57 04/25/23 04:02 04/25/23 04:02 Temperature Temperature Source Pulse Rate 94 Blood Pressure BP Systolic BP Diastolic Pulse Ox 99 98 04/25/23 04:07 04/25/23 04:07 04/25/23 04:09 Temperature Temperature Source Pulse Rate 87 Blood Pressure 130/83 H BP Systolic 130 BP Diastolic 83 Pulse Ox 100 04/25/23 04:09 04/25/23 04:12 04/25/23 04:12 Temperature Temperature Source Pulse Rate 90 84 Blood Pressure BP Systolic BP Diastolic Pulse Ox 99 04/25/23 04:14 04/25/23 04:14 04/25/23 04:17 Temperature Temperature Source Pulse Rate 81 91 Blood Pressure 115/56 L BP Systolic 115 BP Diastolic 56 Pulse Ox 04/25/23 04:17 04/25/23 04:19 04/25/23 04:19 Temperature Temperature Source Pulse Rate 76 Blood Pressure 125/64 H BP Systolic 125 BP Diastolic 64 Pulse Ox 100 04/25/23 04:22 04/25/23 04:22 04/25/23 04:24 Temperature Temperature Source Pulse Rate 83 Blood Pressure 114/58 L BP Systolic 114 BP Diastolic 58 Pulse Ox 99 04/25/23 04:24 04/25/23 04:24 04/25/23 04:27 Temperature Temperature Source Pulse Rate 86 79 Blood Pressure BP Systolic BP Diastolic Pulse Ox 90 04/25/23 04:27 04/25/23 04:24 04/25/23 04:29 Temperature Temperature Source Pulse Rate Blood Pressure 114/58 L 109/58 L BP Systolic 114 109 BP Diastolic 58 58 Pulse Ox 99 04/25/23 04:29 04/25/23 04:32 04/25/23 04:32 Temperature Temperature Source Pulse Rate 81 81 Blood Pressure BP Systolic BP Diastolic Pulse Ox 99 04/25/23 04:34 04/25/23 04:34 04/25/23 04:37 Temperature Temperature Source Pulse Rate 78 76 Blood Pressure 111/58 L BP Systolic 111 BP Diastolic 58 Pulse Ox 04/25/23 04:37 04/25/23 04:39 04/25/23 04:39 Temperature Temperature Source Pulse Rate 77 Blood Pressure 112/59 L BP Systolic 112 BP Diastolic 59 Pulse Ox 100 04/25/23 04:42 04/25/23 04:42 04/25/23 04:44 Temperature Temperature Source Pulse Rate 80 Blood Pressure 112/62 BP Systolic 112 BP Diastolic 62 Pulse Ox 100 04/25/23 04:44 04/25/23 04:47 04/25/23 04:47 Temperature Temperature Source Pulse Rate 73 94 Blood Pressure BP Systolic BP Diastolic Pulse Ox 99 04/25/23 05:23 04/25/23 05:23 04/25/23 05:24 Temperature Temperature Source Temporal Pulse Rate 113 H Blood Pressure 121/64 H BP Systolic 121 BP Diastolic 64 Pulse Ox 04/25/23 05:24 04/25/23 05:23 04/25/23 05:58 Temperature 98.7 F Temperature Source Pulse Rate Blood Pressure 84/45 L BP Systolic 84 BP Diastolic 45 Pulse Ox 100 04/25/23 05:58 04/25/23 05:59 04/25/23 05:59 Temperature Temperature Source Pulse Rate 57 L 71 Blood Pressure 82/50 L BP Systolic 82 BP Diastolic 50 Pulse Ox 04/25/23 06:03 04/25/23 06:03 04/25/23 06:04 Temperature Temperature Source Temporal Pulse Rate 68 Blood Pressure 106/56 L BP Systolic 106 BP Diastolic 56 Pulse Ox 04/25/23 06:04 04/25/23 06:08 04/25/23 06:08 Temperature 97.7 F L Temperature Source Pulse Rate 75 Blood Pressure 105/56 L BP Systolic 105 BP Diastolic 56 Pulse Ox 04/25/23 06:18 04/25/23 06:18 Temperature Temperature Source Pulse Rate 71 Blood Pressure 93/52 L BP Systolic 93 BP Diastolic 52 Pulse Ox Weight Weight: 175 lb 12.8 oz Body Mass Index (BMI) 27.5 Physical Exam Const alert, oriented x3 and healthy appearing Constitutional Narrative: uncomfortable with contractions HEENT normocephalic and moist oral mucous membranes Head and Scalp: atraumatic Neck full ROM, no lymphadenopathy, supple and thyroid normal General: trachea midline Thyroid: thyroid normal Lymph Lymphatic: no lymphadenopathy noted Chest inspection of chest normal Resp normal respiratory effort Cardio regular rate GI normal to inspection, nondistended, normoactive bowel sounds, soft to palpation and non-tender Inspection: gravid external exam normal Bimanual Exam - Vag & Uterus: uterus non-tender Manual OB Exam: estimated gestational size appropriate, presentation cephalic, dilated, effaced and station Extremity normal to inspection General Extremity: Negative for edema Skin no rashes or lesions noted Neuro deep tendon reflexes 2+ bilaterally Motor Exam: strength 5/5 throughout and clonus absent Psych mental status grossly normal Labs Labs Labs: Blood Type A POSITIVE Antibody Screen NEGATIVE Hct 41.2 % (37-47) Hgb 13.2 g/dL (12.0-15.0) Pap Smear Negative Obstetrics Ultrasound Syphilis Total Ab Non-reactive Rubella IgG Antibody Reactive (Nonreactive) Hep Bs Antigen Non-Reactive (Nonreactive) Hepatitis C Antibody Non-Reactive (Nonreactive) Chlamydia DNA (LIVIER) Negative (Negative) N.gonorrhoeae DNA (LIVIER) Negative (Negative) HIV 1&2 Antibody Non-Reactive (Nonreactive) Glucose 1 Hr 50 gm 75 mg/dL (70-140) Group B Strep DNA Negative (Negative) Rhogam given: No Assessment & Plan (1) History of delivery: COMMENT: previous cs x 1, then successful , plan . delivery by 39 weeks, growth scan at 36 for EFW. 1st with CPD (2) : QUALIFIERS: Weeks of gestation: 36 weeks Qualified Code(s): Z3A.36 - 36 weeks gestation of COMMENT: GBS Negative, nl anatomy, genetic and carrier screening afp declined. (3) ASCUS of cervix with negative high risk HPV: COMMENT: repeat pap 3 years (4) Supervision of other normal : COMMENT: PRR TONI 05/12/23 boy PC: kiah Neal Spouse: Christian (5) Active labor at term: PLAN: Plan Patient presents IAL, plan expectant management for , pitocin/AROM PRN if needed. Pain management: plans epidural. GBS neg. Management of any complications: none I have reviewed the [facility] and made any clinically relevant updates.
--- NOTE | 2023-04-25 06:21 | EX.PCM.OBRPT ---
Assessment & Plan (1) Active labor at term: (2) History of delivery: COMMENT: previous cs x 1, then successful , plan . delivery by 39 weeks, growth scan at 36 for EFW. 1st with CPD (3) : QUALIFIERS: Weeks of gestation: 36 weeks Qualified Code(s): Z3A.36 - 36 weeks gestation of COMMENT: GBS Negative, nl anatomy, genetic and carrier screening afp declined. (4) ASCUS of cervix with negative high risk HPV: COMMENT: repeat pap 3 years (5) Supervision of other normal : COMMENT: PRR TONI 05/12/23 boy PC: kiah Neal Spouse: Christian (6) , delivered, current hospitalization: COMMENT: SM 37 IAL boy jess Maternal Data Information TONI Calculator Estimated Delivery Date Method Current WG Current Estimate 05/12/23 Ultrasound #1 37w 4d Other Estimates 05/05/23 LMP (Certain) 38w 4d Vaginal Delivery Operative Information Date of Procedure: 04/25/23 Pre-Operative Diagnosis: see a/p diagnoses Post-Operative Diagnosis: same Surgery / Procedure Performed: Type of Anesthesia: Epidural Special Medications: none Estimated Blood Loss: 200 Fluids Replaced: crystalloid Findings Description of Procedure: Patient began pushing and delivered the head in the BRODERICK presentation. The head was delivered atraumatically and a tight nuchal cord ?1 was identified and the delivered through without complication. The anterior and posterior shoulders delivered without complication followed by the rest of the and the was placed on the maternal abdomen. Delayed cord clamping was employed for approximately 60 seconds. Cord was clamped and cut and gentle traction was applied to the cord and the placenta delivered with some difficulty following it was noted to be mostly intact with three-vessel cord, bedside currettage and manual exploration performed to confirm complete removal which was confirmed. The perineum and vagina were inspected and noted to have no laceration. EBL was 200 cc. Patient and tolerated delivery well. Amniotic Fluid Description: Clear Placental Delivery Description: Spontaneous Placenta Disposition: [facility] Cord Vessel Description: 3 Vessels Cord Entanglement: Around neck x 1, tight Delayed Cord Clamping: Yes Post Vaginal Delivery Medications Given After Delivery: IV Pitocin Episiotomy Description: None Complication Complications: None Multi Select Codes Urinary/Genital Urinary/Genital CPT Codes: 96001 delivery [facility]
[2023-04-25] MEDS: Oxytocin 15 Units/NS 250ml 15 UNITS/250 ML IV.SOLN 83 UNITS IV (07:15)
[2023-04-25] MEDS: Oxytocin 10 UNITS/ML Vial IM (07:15)
--- NOTE | 2023-04-25 08:28 | DCINST_ITS ---
Discharge Instructions Diet Discharge Diet: No restrictions Activity Discharge Activity: Return to Normal Activity, May Not Drive (while taking narcotic pain medications.) and May Shower May resume sexual activity in: 4-6 weeks Dressing / Incision Call your doctor if your incision/area has: Continuous Slow Oozing, Sudden Increased Bleeding, Increased Pain/ Swelling, Increased Redness and Foul Smelling Discharge Follow Up Care Please Follow Up With: Emily Gore MD When: Call [phone] to make an appointment with your doctor in 6 weeks. If you had elevated blood pressure or 4th degree laceration, you will need to be seen in 2 weeks. Test Results: Test results from this visit will be discussed in further detail at your follow- up appointment, if applicable. Discharge Plan Admission Admit Date/Time: 04/25/23 03:13 Attending Provider: Emily Gore Primary Care Provider: Janice Gandhi Discharge Orders/Prescriptions Prescriptions: No Action vit B complx-folic ac-C-biotin 1 mg-200 mg- 300 mcg tablet PO ondansetron HCl 4 mg tablet 4 mg PO Q6H PRN (Reason: nausea and vomiting) Qty: 30 3RF doxylamine-pyridoxine (vit B6) [Diclegis] 10-10 mg tablet,delayed release (DR/EC) 1 tab PO .QID PRN (Reason: nausea) 30 Days Qty: 60 4RF vit no.[id number] 1 EACH tablet 1 ea PO DAILY Referrals / Follow Up: Janice Gandhi MD [Primary Care Provider] - Disposition Disposition (needs filled in before D/C Order can be placed): Home, Self Care
[2023-04-25] MEDS: Cefazolin 2 GM in 0.9% Normal Saline (100mL Bag) 100 ML IV (09:30)
[2023-04-25] MEDS: 0.9% Saline Lock 10 ML Syringe IV (11:56)
[2023-04-25] MEDS: Naproxen 500 MG Tablet PO (20:16)
[2023-04-26 00:55] VITALS: BP 120/59; PULSE 85; RESP 18; TEMP 36.4; O2SAT 98
[2023-04-26 01:01] VITALS: BP 120/59; PULSE 84; O2SAT 97
[2023-04-26 04:02] VITALS: BP 110/56; PULSE 79; O2SAT 98
[2023-04-26 04:05] VITALS: BP 110/56; PULSE 79; RESP 16; TEMP 36.2; O2SAT 98
--- NOTE | 2023-04-26 07:06 | PN.OBGYN_ITS ---
Subjective Subjective Patient doing well without complaints. Tolerating PO. Ambulating and voiding without difficulty. Feeding well. Denies chest pain, shortness of breath, calf pain/swelling, fevers, chills, lightheadedness. Objective Data Objective Data Vital Signs: Vital Signs Temp Pulse Resp BP Pulse Ox O2 Del Method 97.1 F L 79 16 110/56 L 98 Room Air 04/26/23 04:05 04/26/23 04:05 04/26/23 04:05 04/26/23 04:05 04/26/23 04:05 04/26/23 04:05 Oxygen Delivery Method Room Air Weight: 175 lb 12.8 oz Body Mass Index (BMI) 27.5 Intake & Output: Intake and Output for Last 24 Hours 04/24/23 04/25/23 04/26/23 23:59 23:59 23:59 Intake Total 1902.50 / 1902.50 Output Total 900 / 900 Balance 1002.50 / 1002.50 Lab / Micro Data Attestation: I reviewed the patient's lab results. 04/25/23 03:30 ROS Constitutional Constitutional: Reports systems reviewed and no addt'l complaints, except as documented; Denies anorexia or headache(s) Cardiovascular Cardiovascular: Reports systems reviewed and no addt'l complaints, except as documented; Denies dizziness, dyspnea, nausea or tachypnea Respiratory/Chest Respiratory/Chest: Reports systems reviewed and no addt'l complaints, except as documented; Denies cough, dyspnea, shortness of breath at rest or tachypnea Gastrointestinal Gastrointestinal: Reports systems reviewed and no addt'l complaints, except as documented; Denies abdominal pain, constipation or nausea Genitourinary Genitourinary: Reports systems reviewed and no addt'l complaints, except as documented; Denies burning urination, difficulty urinating, dysuria, urinary frequency or urinary incontinence Musculoskeletal Musculoskeletal: Reports systems reviewed and no addt'l complaints, except as documented Integumentary Integumentary: Reports systems reviewed and no addt'l complaints, except as documented Neurologic Neurologic: Reports systems reviewed and no addt'l complaints, except as doc umented; Denies abnormal speech, dizziness or headache(s) Psychiatric Psychiatric: Reports systems reviewed and no addt'l complaints, except as documented Endocrine Endocrinology: Reports systems reviewed and no addt'l complaints, except as documented Hematologic/Lymphatic Hematologic/Lymphatic: Reports systems reviewed and no addt'l complaints, except as documented Physical Exam Const alert, oriented x3 and no apparent distress Neck full ROM Resp normal respiratory effort, normal air movement and no retractions Effort and Inspection: able to speak in complete sentences and symmetric chest movement GI soft to palpation Bladder / Kidney Exam: bladder normal to palpation Uterus Palpation: uterus fundus Extremity normal to inspection and full ROM Psych mental status grossly normal, thought process normal and cooperative Assessment & Plan (1) , delivered, current hospitalization: COMMENT: 37 IAL boy jess PLAN: s/p PPD # 1 1. routine post delivery care 2. breast feeding- support given 3. rh positive 4. rubella immune 5. Discharge home Charges/Coding Multi Select Codes Urinary/Genital Urinary/Genital CPT Codes: No Charge
[2023-04-26 08:02] VITALS: BP 128/64; PULSE 78; RESP 16; TEMP 36.2
[2023-04-26 08:03] VITALS: BP 128/64; PULSE 78
== END 2023-04-26 11:50 | disposition home or self-care (01) | DRG 807 ==
LOC: WPOUT 03:13 → WP 03:13
PROVIDERS: Admitting Provider Obstetrics & Gynecology; PCP Internal Medicine; Referring Provider Obstetrics & Gynecology; Visit Provider Obstetrics & Gynecology
DX: O69.2XX0 Labor and delivery complicated by other cord entanglement, with compression, not applicable or unspecified (principal); Z37.0 Single live birth; O34.219 Maternal care for unspecified type scar from previous cesarean delivery; Z3A.39 39 weeks gestation of pregnancy
CPT/HCPCS: 59025; 59050; 84112; 85025; 86780; 86850; 86900; 86901; 99221; J7120; A4216; G0378

== ENCOUNTER → 2024-06-28 | Outpatient (CLI) | payer OTHER, SELFPAY ==
[2024-07-01 12:07] LABS: HPV APTIMA, High Risk Negative (Negative)
== END | disposition home or self-care (01) ==
PROVIDERS: PCP Internal Medicine; Referring Provider Nurse Practitioner Women's Health; Visit Provider Nurse Practitioner Women's Health
DX: Z12.4 Encounter for screening for malignant neoplasm of cervix (principal)
CPT/HCPCS: 87624; 88175; G0145